=== PATIENT | female | born 1960 | race Caucasian/White ===

== ENCOUNTER → 2020-09-08 11:46 | Outpatient (BNVA) | payer MEDICARE, MEDICAID, SELFPAY | PROVIDERS: PCP Internal Medicine; Visit Provider Hospitalist | DX: Z13.89 Encounter for screening for other disorder (principal) | CPT/HCPCS: Q3014 ==

== ENCOUNTER → 2021-03-12 11:16 | Outpatient (BNVA) | payer MEDICARE, MEDICAID, SELFPAY | PROVIDERS: PCP Internal Medicine; Visit Provider Hospitalist | DX: J44.9 Chronic obstructive pulmonary disease, unspecified (principal); J96.11 Chronic respiratory failure with hypoxia; J96.12 Chronic respiratory failure with hypercapnia | CPT/HCPCS: 99212 ==

== ENCOUNTER → 2021-09-17 14:28 | Outpatient (BNVA) | payer MEDICARE, MEDICAID, SELFPAY | PROVIDERS: PCP Internal Medicine; Visit Provider Hospitalist | DX: J44.9 Chronic obstructive pulmonary disease, unspecified (principal); J96.11 Chronic respiratory failure with hypoxia; J96.12 Chronic respiratory failure with hypercapnia | CPT/HCPCS: 99212 ==

== ENCOUNTER 2022-01-24 15:28 | Inpatient (IN) | payer MEDICARE, MEDICAID, SELFPAY ==
[2022-01-24] VITALS (9 sets, daily range): BP systolic 107–151; BP diastolic 49–80; PULSE 83–104; RESP 15–22; TEMP 36.2–36.7; O2SAT 92–96; BMI 33.4
--- NOTE | ~2022-01-24 | XR_ITS ---
EXAMINATION: XR CHEST CLINICAL INFORMATION: Shortness of breath COMPARISON: None TECHNIQUE: Frontal view of the chest was obtained. FINDINGS: Linear subsegmental atelectasis at the right lung base. No airspace consolidation. No pleural effusion or pneumothorax. Normal cardiomediastinal silhouette. Mild prominence of the pulmonary vascular markings and mild peribronchial cuffing. No overt pulmonary edema. No acute osseous injury. XR/XR chest 1V IMPRESSION: 1. Possible mild pulmonary vascular congestion. No overt pulmonary edema. 2. No airspace consolidation or effusions.
--- NOTE | 2022-01-24 15:40 | ECG_ITS ---
Test Reason : SOB Blood Pressure : / mmHG Vent. Rate : 076 BPM Atrial Rate : 076 BPM P-R Int : 160 ms QRS Dur : 084 ms QT Int : 438 ms P-R-T Axes : 059 043 044 degrees QTc Int : 492 ms Normal sinus rhythm T wave abnormality, consider anterior ischemia Prolonged QT Abnormal ECG No previous ECGs available Referred By: Generic ED Physician Electronically Signed By:ANTWON EAST
--- NOTE | 2022-01-24 16:10 | ED_ITS ---
HPI - Asthma General Chief Complaint: Asthma Stated Complaint: asthma Time Seen by Provider: 01/24/22 15:49 Source: patient Mode of arrival: ambulatory Limitations: no limitations History of Present Illness HPI Narrative: 61-year-old female past medical history significant for asthma, COPD presenting to the emergency department with complaints of shortness of breath, wheezing, malaise, fatigue, cough with productive yellow/green sputum x2 weeks worsening. Patient tells me that initially she thought this was her typical asthma/COPD exacerbation, she was taking nebulizing treatments around the clock every 4 ho urs, using her rescue inhaler, recently completed a course of 40 mg of p.o. prednisone x5 days with little to no relief. 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 she reports increased work of breathing, and she tells me she feels horrible. She reports that she has some chest discomfort however has a hard time describing it. She does report that her grandchild at home is sick with similar symptoms. Patient was never a smoker. MD complaint: asthma attack Onset (ago): week(s) (2) Severity: severe Associated symptoms: none Treatments Prior to Arrival: inhaled bronchodilator and inhaled steroid Related Data Home Medications Medication Instructions Recorded Confirmed methocarbamol 500 mg tablet 500 mg PO TID 09/08/20 09/08/20 albuterol sulfate 90 mcg/actuation 2 puff inhalation Q4H PRN Wheezing 01/24/22 01/24/22 aerosol inhaler (Ventolin HFA) amlodipine 5 mg tablet 5 mg PO DAILY 01/24/22 01/24/22 citalopram 40 mg tablet tab 01/24/22 furosemide 20 mg tablet tab 01/24/22 hydroxyzine pamoate 25 mg capsule cap 01/24/22 levothyroxine 50 mcg tablet tab 01/24/22 omeprazole 40 mg capsule,delayed cap 01/24/22 release potassium chloride 10 mEq tab PO 01/24/22 tablet,extended release ropinirole 3 mg tablet tab 01/24/22 simvastatin 10 mg tablet tab 01/24/22 trazodone 150 mg tablet tab 01/24/22 Previous Rx's Medication Instructions Recorded montelukast 10 mg tablet 10 mg PO BEDTIME 90 days #90 tabs 09/08/20 (Singulair) Symbicort 160 mcg-4.5 2 puff inhalation BID 90 days 09/13/20 mcg/actuation HFA aerosol inhaler (budesonide-formoterol) ipratropium 0.5 mg-albuterol 3 mg 3 ml inhalation QID 30 days #360 mL 09/24/21 (2.5 mg base)/3 mL nebulization soln Allergies Allergy/AdvReac Type Severity Reaction Status Date / Time ampicillin Allergy Severe Rash and Uncoded 01/24/22 15:04 Hives naproxen Allergy Severe Rash and Uncoded 01/24/22 15:04 Hives slow bid Allergy Severe Rash and Uncoded 01/24/22 15:04 Hives tramadol Allergy Severe Rash and Uncoded 01/24/22 15:04 Hives Review of Systems Review of Systems: Constitutional : No Weight loss, No Fever, No Chills, No Fatigue, No Malaise ENT/Mouth : No sore throat, No Rhinorrhea Eyes: No Eye Pain, No Swelling, No Redness Cardiovascular : + Chest Pain, + SOB, + Dyspnea on Exertion, + Orthopnea, No Edema, No Palpitations Respiratory : + Cough, + Sputum, + Wheezing Gastrointestinal : No Nausea, No Vomiting, No Diarrhea, No Constipation, No abdominal Pain, No Hematochezia, No Melena Genitourinary : No Dysuria, No Urinary Frequency, No Hematuria, Musculoskeletal : No joint pain, No Myalgias, No Joint Swelling Skin : No Skin Lesions, No rash Neuro : No Weakness, No Numbness, No Dizziness, No Headache Psych : No Anxiety/Panic, No Depression All other systems reviewed and are negative Yes all other systems are reviewed and are negative FOR[facility]LY [facility], [facility] Past Medical History Attestation statement: The following information was validated with the patient. Source: old records reviewed and nursing notes reviewed Medical History Asthma-COPD overlap syndrome Chronic respiratory failure Social History Social History Patient Tobacco Use Status: Never used Tobacco Advance Directives: No Advance Directives Information Provided: No Physical Exam Vital Signs: Vital Signs: Last Vital Signs Temp 97.2 F 01/24/22 15:36 Pulse 93 01/24/22 17:09 Resp 22 H 01/24/22 17:09 BP 121/80 01/24/22 16:47 Pulse Ox 92 01/24/22 17:09 O2 Del Method 01/24/22 17:09 O2 Flow Rate 2 01/24/22 17:09 Oxygen Flow Rate 3 01/24/22 15:36 BMI result Body Mass Index 33.4 vss 95% on 3L usualy only on 2L at home. Appearance: Alert.? Oriented X3.? No acute distress.? Head: Normocephalic, atraumatic, no step-offs or deformities Eyes: Pupils equal, round and reactive to light.? ENT: Pharynx normal.? Neck: Normal inspection.? Neck supple.? CVS: Normal heart rate and rhythm.? Pulses normal.? Respiratory: No respiratory distress. Patient has crackles to bilateral lower lobes, significant expiratory wheezing throughout. Abdomen: Soft and nontender.? Skin: Skin warm and dry.? Normal skin color.? Normal skin turgor.? Extremities: No lower extremity edema.? No calf ttp, negative farhan b/l. 5/5 strength to bilateral upper and lower extremities Neuro: Oriented X 3.? No motor deficit.? No sensory deficit. CN 2-12 intact Course Reevaluation(s) Reevaluation #1: CBC appears to be within normal limits. Chemistry with no acute electrolyte abnormalities requiring intervention. VBG with metabolic alkalosis. D-dimer is negative. COVID negative. Time: 17:32 Reevaluation #2: At this time patient will be admitted to hospitalist team for acute asthma exacerbation Time: 17:39 MDM - Asthma MDM Narrative Medical decision making narrative: 1613 61-year-old female presenting from pulmonology office with acute asthma exacerbation, not relieved by nebulizing treatments in the office. Patient reports wheezing, shortness of breath, difficulty breathing. Physical examination with X to Nicola wheezing throughout. Negative Farhan Patient without risk factors for PE therefore I have low suspicion for PE. Unlikely CHF, pneumonia. Asthma with superimposed COPD exacerbation. For this reason at this time infection is suspected, antibiotics will be given. I will hold on administering fluids until patient's BNP is back. Plan at this time labs, imaging, VBG, chest x-ray, COVID. I will give patient 10 mg of albuterol, a DuoNeb, magnesium, Solu-Medrol. Medical Records Attestation: I reviewed the patient's medical records. Lab Data Attestation: I reviewed the patient's lab results. Result diagrams: 01/24/22 16:33 01/24/22 16:32 Labs: Lab Results 01/24/22 01/24/22 01/24/22 Range/Units 16:32 16:32 16:32 WBC (4.8-10.8) X10*3/uL RBC (4.20-5.50) X10*6/uL Hgb (12.0-16.0) g/dl Hct (37.0-47.0) % MCV (80.0-98.0) fL MCH (27.0-33.0) pg MCHC (31.0-35.0) g/dl RDW (11.0-16.0) % Plt Count (160-400) X10*3/uL MPV (9.4-12.3) fL Immature Gran % (Auto) (0.0-0.4) % Neut % (Auto) (45-73) % Lymph % (Auto) (20-40) % [place] % (Auto) (2-11) % Eos % (Auto) (0-4) % Baso % (Auto) (0-2) % Lymph # (Auto) (1.2-4.9) X10*3/uL [place] # (Auto) (0.1-1.2) X10*3/uL Eos # (Auto) (0.0-0.4) X10*3/uL Baso # (Auto) (0.0-0.2) X10*3/uL Abs Immat Gran (auto) (0.00-0.03) X10*3/uL Absolute Neuts (auto) (2.0-8.3) x10*3/uL Absolute Nucleated RBC (0.0-0.012) X10*3/uL Nucleated RBC % (auto) (0.0-0.2) /100WBC D-Dimer High Sensitivty 193 NG/ML VBG pH (7.32-7.43) VBG pCO2 mmHg VBG pO2 mmHg VBG HCO3 (22-26) mmol/L VBG O2 Saturation % VBG Base Excess mmol/L Sodium 141 (135-145) mmol/L Potassium 4.2 (3.3-5.1) mmol/L Chloride 97 (96-108) mmol/L Carbon Dioxide 36 H (22-29) mmol/L Anion Gap 12 (12-20) BUN 21 H (9-16) mg/dL Creatinine 1.35 (0.5-1.4) mg/dL Estim Creat Clear Calc 37.9 Estimated GFR 40 Random Glucose 97 (60-115) mg/dL Lactic Acid (0.5-2.0) mmol/L Calcium 9.3 (8.4-10.2) mg/dL Total Bilirubin 0.4 (0.0-1.0) mg/dL AST 13 (5-31) U/L ALT 19 (0-31) U/L Alkaline Phosphatase 71 (39-117) U/L Troponin I High Sens (<3.5-17.0) ng/L B-Natriuretic Peptide (<100) pg/mL Total Protein 7.5 (6.5-8.0) g/dL Albumin 4.5 (3.5-5.0) g/dL COVID-19 (KAREN) Negative (Negative) COVID-19 Clin Com See Note 01/24/22 01/24/22 01/24/22 Range/Units 16:32 16:33 16:33 WBC 9.8 (4.8-10.8) X10*3/uL RBC 3.87 L (4.20-5.50) X10*6/uL Hgb 11.9 L (12.0-16.0) g/dl Hct 36.7 L (37.0-47.0) % MCV 94.8 (80.0-98.0) fL MCH 30.7 (27.0-33.0) pg MCHC 32.4 (31.0-35.0) g/dl RDW 13.0 (11.0-16.0) % Plt Count 254 (160-400) X10*3/uL MPV 10.6 (9.4-12.3) fL Immature Gran % (Auto) 1.3 H (0.0-0.4) % Neut % (Auto) 44.6 L (45-73) % Lymph % (Auto) 47.5 H (20-40) % [place] % (Auto) 5.8 (2-11) % Eos % (Auto) 0.5 (0-4) % Baso % (Auto) 0.3 (0-2) % Lymph # (Auto) 4.6 (1.2-4.9) X10*3/uL [place] # (Auto) 0.6 (0.1-1.2) X10*3/uL Eos # (Auto) 0.1 (0.0-0.4) X10*3/uL Baso # (Auto) 0.0 (0.0-0.2) X10*3/uL Abs Immat Gran (auto) 0.13 H (0.00-0.03) X10*3/uL Absolute Neuts (auto) 4.4 (2.0-8.3) x10*3/uL Absolute Nucleated RBC 0.000 (0.0-0.012) X10*3/uL Nucleated RBC % (auto) 0.0 (0.0-0.2) /100WBC D-Dimer High Sensitivty NG/ML VBG pH (7.32-7.43) VBG pCO2 mmHg VBG pO2 mmHg VBG HCO3 (22-26) mmol/L VBG O2 Saturation % VBG Base Excess mmol/L Sodium (135-145) mmol/L Potassium (3.3-5.1) mmol/L Chloride (96-108) mmol/L Carbon Dioxide (22-29) mmol/L Anion Gap (12-20) BUN (9-16) mg/dL Creatinine (0.5-1.4) mg/dL Estim Creat Clear Calc Estimated GFR Random Glucose (60-115) mg/dL Lactic Acid 1.0 (0.5-2.0) mmol/L Calcium (8.4-10.2) mg/dL Total Bilirubin (0.0-1.0) mg/dL AST (5-31) U/L ALT (0-31) U/L Alkaline Phosphatase (39-117) U/L Troponin I High Sens < 3.5 (<3.5-17.0) ng/L B-Natriuretic Peptide 25 (<100) pg/mL Total Protein (6.5-8.0) g/dL Albumin (3.5-5.0) g/dL COVID-19 (KAREN) (Negative) COVID-19 Clin Com 01/24/22 Range/Units 16:48 WBC (4.8-10.8) X10*3/uL RBC (4.20-5.50) X10*6/uL Hgb (12.0-16.0) g/dl Hct (37.0-47.0) % MCV (80.0-98.0) fL MCH (27.0-33.0) pg MCHC (31.0-35.0) g/dl RDW (11.0-16.0) % Plt Count (160-400) X10*3/uL MPV (9.4-12.3) fL Immature Gran % (Auto) (0.0-0.4) % Neut % (Auto) (45-73) % Lymph % (Auto) (20-40) % [place] % (Auto) (2-11) % Eos % (Auto) (0-4) % Baso % (Auto) (0-2) % Lymph # (Auto) (1.2-4.9) X10*3/uL [place] # (Auto) (0.1-1.2) X10*3/uL Eos # (Auto) (0.0-0.4) X10*3/uL Baso # (Auto) (0.0-0.2) X10*3/uL Abs Immat Gran (auto) (0.00-0.03) X10*3/uL Absolute Neuts (auto) (2.0-8.3) x10*3/uL Absolute Nucleated RBC (0.0-0.012) X10*3/uL Nucleated RBC % (auto) (0.0-0.2) /100WBC D-Dimer High Sensitivty NG/ML VBG pH 7.50 H (7.32-7.43) VBG pCO2 51 mmHg VBG pO2 186 mmHg VBG HCO3 40 H (22-26) mmol/L VBG O2 Saturation 100.0 % VBG Base Excess 14.9 mmol/L Sodium (135-145) mmol/L Potassium (3.3-5.1) mmol/L Chloride (96-108) mmol/L Carbon Dioxide (22-29) mmol/L Anion Gap (12-20) BUN (9-16) mg/dL Creatinine (0.5-1.4) mg/dL Estim Creat Clear Calc Estimated GFR Random Glucose (60-115) mg/dL Lactic Acid (0.5-2.0) mmol/L Calcium (8.4-10.2) mg/dL Total Bilirubin (0.0-1.0) mg/dL AST (5-31) U/L ALT (0-31) U/L Alkaline Phosphatase (39-117) U/L Troponin I High Sens (<3.5-17.0) ng/L B-Natriuretic Peptide (<100) pg/mL Total Protein (6.5-8.0) g/dL Albumin (3.5-5.0) g/dL COVID-19 (KAREN) (Negative) COVID-19 Clin Com ECG Data Attestation: I personally reviewed and interpreted this ECG as follows: ECG interpretation date: 01/24/22 ECG interpretation time: 17:32 Prior ECG tracings: not available for review Interpretation: Ventricular rate of 76, DC normal, QRS normal, QT/QTC normal. EKG without ST elevations or inversions. No acute signs of ischemia. No previous EKGs to compare with. Critical Care Time Critical Care Time Critical Care Time: No Discharge Plan Discharge Clinical Impression: Asthma Patient Disposition: Admitted As Inpatient Prescriptions: No Action budesonide-formoterol [Symbicort] 160-4.5 mcg/actuation HFA aerosol inhaler 2 puff inhalation BID 90 Days 3RF albuterol sulfate [Ventolin HFA] 90 mcg/actuation HFA aerosol inhaler 2 puff inhalation Q4-6H PRN (Reason: shortness of breath or wheezing) 90 Days Qty: 3 3RF prednisone 10 mg tablet 40 mg PO DAILY 7 Days Qty: 28 0RF ipratropium-albuterol 0.5 mg-3 mg(2.5 mg base)/3 mL solution for nebulization 3 ml inhalation QID 30 Days Qty: 360 11RF azithromycin 500 mg tablet 500 mg PO DAILY 5 Days Qty: 5 0RF methocarbamol 500 mg tablet 500 mg PO TID montelukast [Singulair] 10 mg tablet 10 mg PO BEDTIME 90 Days Qty: 90 3RF
[2022-01-24] MEDS: Albuterol Sulfate (0.083%) 2.5 MG/3 ML VIAL.NEB 10 MG INHALE (16:37)
[2022-01-24 16:44] LABS: MANUAL DIFF FLAG NO
[2022-01-24] MEDS: Magnesium Sulfate/H2O 2 GM/50 ML PIGGYBACK IV (16:44)
[2022-01-24] MEDS: methylPREDNISolone Sod Succ 125 MG/2 ML VIAL IVPUSH (16:44)
[2022-01-24 16:52] LABS: VBG Base Excess 14.9 mmol/L; VBG HCO3 40 mmol/L (22-26); VBG pCO2 51 mmHg; VBG pO2 186 mmHg
[2022-01-24 16:53] LABS: Basophils Percent Auto 0.3 % (0-2); Eosinophils Absolute Auto 0.1 X10*3/uL (0.0-0.4); Eosinophils Percent Auto 0.5 % (0-4); Hematocrit 36.7 % (37.0-47.0); Hemoglobin 11.9 g/dl (12.0-16.0); Imm Gran Abs Auto 0.13 X10*3/uL (0.00-0.03); Imm Gran Pct Auto 1.3 % (0.0-0.4); Lymphocytes Absolute Auto 4.6 X10*3/uL (1.2-4.9); Lymphocytes Percent Auto 47.5 % (20-40); Mean Corpuscular HGB Conc 32.4 g/dl (31.0-35.0); Mean Corpuscular Hemoglobin 30.7 pg (27.0-33.0); Mean Corpuscular Volume 94.8 fL (80.0-98.0); Mean Platelet Volume 10.6 fL (9.4-12.3); Monocytes Absolute Auto 0.6 X10*3/uL (0.1-1.2); Monocytes Percent Auto 5.8 % (2-11); Neutrophils Absolute Auto 4.4 x10*3/uL (2.0-8.3); Neutrophils Percent Auto 44.6 % (45-73); Platelet Count 254 X10*3/uL (160-400); Red Blood Count 3.87 X10*6/uL (4.20-5.50); White Blood Count 9.8 X10*3/uL (4.8-10.8)
[2022-01-24 16:55] LABS: Venous Blood Gas Refer to POC result
[2022-01-24 17:00] LABS: D Dimer High Sensitivity 193 NG/ML
[2022-01-24 17:01] LABS: COVID-19 Test Negative (Negative)
[2022-01-24] MEDS: cefTRIAXone sodium 1 GM in 0.9 % Sodium Chloride 50 ML IV (17:09)
[2022-01-24 17:24] LABS: Alanine Aminotransferase 19 U/L (0-31); Albumin Level 4.5 g/dL (3.5-5.0); Alkaline Phosphatase 71 U/L (39-117); Anion Gap 12 (12-20); Aspartate Amino Transferase 13 U/L (5-31); Bilirubin Total 0.4 mg/dL (0.0-1.0); Blood Urea Nitrogen 21 mg/dL (9-16); Calcium 9.3 mg/dL (8.4-10.2); Carbon Dioxide 36 mmol/L (22-29); Chloride 97 mmol/L (96-108); Creatinine Clr Calc Pharmacy 37.9; Estimated Glomerular Filt Rate 40; Glucose Random 97 mg/dL (60-115); Potassium 4.2 mmol/L (3.3-5.1); Sodium 141 mmol/L (135-145); Total Protein 7.5 g/dL (6.5-8.0)
[2022-01-24 17:27] LABS: B Type Natriuretic Peptide 25 pg/mL (<100); Troponin-I High Sensitivity < 3.5 ng/L (<3.5-17.0)
[2022-01-24] MEDS: Albuterol Sulfate (0.083%) 2.5 MG/3 ML VIAL.NEB 7.5 MG INHALE (17:29)
[2022-01-24 17:57] LABS: Appearance Urine CLEAR; Color Urine YELLOW; Glucose Urine UA NEG (NEG); Leukocyte Esterase Urine NEG (NEG); Nitrite Urine NEG (NEG); PH 5.5 (5.0-8.0); Specific Gravity - Urine >= 1.030 (1.005-1.025); Urine Blood NEG (NEG); Urine Ketones 5 MG/DL (NEG); Urine Protein NEG (NEG-TRACE)
--- NOTE | 2022-01-24 18:17 | PHA.MEDREC ---
Pharmacy Consult ? Medication Reconciliation Pharmacy has completed the medication reconciliation. Patient reports that she no longer use Symbicort inhaler. Cintia Umana, NathanD
--- NOTE | 2022-01-24 18:37 | PM.IMHP ---
History of Present Illness Date of Service: 01/24/22 Chief Complaint: shortness of breath 61-year-old female past medical history significant for asthma, COPD presenting to the emergency department with complaints of shortness of breath, wheezing, malaise, fatigue, cough with productive yellow/green sputum x2 weeks worsening.? Patient tells me that initially she thought this was her typical asthma/COPD exacerbation, she was taking nebulizing treatments around the clock every 4 hours, using her rescue inhaler, recently completed a course of 40 mg of p.o. prednisone x5 days with little to no relief.? 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 she reports increased work of breathing, and she tells me she feels horrible.? She reports that she has some chest discomfort however has a hard time describing it.? She does report that her grandchild at home is sick with similar symptoms.? Patient was never a smoker. Patient notes she has been intubated in the past for asthma exacerbation ER course Given 10 mg of DuoNeb/125 Solu-Medrol/ceftriaxone. Will be admitted for further treatment of same Review of Systems Review of Systems: Denies chest pain Admits to worsening shortness of breath Denies nausea vomiting diarrhea Denies fever chills PMFSH Medical History Asthma-COPD overlap syndrome Chronic respiratory failure Social History Patient Tobacco Use Status: Never used Tobacco Advance Directives: No Advance Directives Information Provided: No Meds Allergies Allergy/AdvReac Type Severity Reaction Status Date / Time ampicillin Allergy Severe Rash and Uncoded 01/24/22 15:04 Hives naproxen Allergy Severe Rash and Uncoded 01/24/22 15:04 Hives slow bid Allergy Severe Rash and Uncoded 01/24/22 15:04 Hives tramadol Allergy Severe Rash and Uncoded 01/24/22 15:04 Hives Active Medications: Current Medications Acetaminophen (Acetaminophen 325 Mg Tablet) 650 mg PO Q6H PRN PRN Reason: Pain, Mild (Pain Scale 1-3) Albuterol/Ipratropium (Albuterol/Iprat 2.5/0.5mg 3 Ml Ampul.Neb) 3 ml INHALE Q4H PRN PRN Reason: Wheezing Albuterol/Ipratropium (Albuterol/Iprat 2.5/0.5mg 3 Ml Ampul.Neb) 3 ml INHALE RQ4H WHILE AWAKE FORMERLY [facility], [facility]1983 Amlodipine Besylate (Amlodipine Besylate 5 Mg Tablet) 5 mg PO DAILY DANIELA; Protocol Atorvastatin Calcium (Atorvastatin Calcium 10 Mg Tablet) 10 mg PO DAILY DANIELA Azithromycin (Azithromycin 500 Mg Tablet) 500 mg PO Q24H DANIELA Stop: 01/26/22 19:01 Furosemide (Furosemide 20 Mg Tablet) 20 mg PO DAILY DANIELA; Protocol Hydroxyzine HCl (Hydroxyzine Hcl 25 Mg Tablet) 25 mg PO Q6H PRN PRN Reason: Anxiety Ceftriaxone Sodium 1 gm/ (Sodium Chloride) 50 mls @ 100 mls/hr IV Q24H [facility], [facility]1983 Levothyroxine Sodium (Levothyroxine Sodium 50 Mcg Tablet) 50 mcg PO DAILY@0600 FOR[facility], [facility]1983 Methylprednisolone Sodium Succinate (Methylprednisolone Sod Succ 125 Mg/2 Ml Vial) 60 mg IVPUSH Q6H DANIELA Montelukast Sodium (Montelukast Sodium 10 Mg Tablet) 10 mg PO BEDTIME FOR[facility], [facility]1983 Morphine Sulfate (Morphine Sulfate 2 Mg/Ml Cartridge) 2 mg IVPUSH Q3H PRN; Protocol PRN Reason: Restlessness Non-Formulary Medication (Citalopram) 40 mg PO DAILY [facility], [facility] Non-Formulary Medication (Ropinirole) 3 mg PO BEDTIME [facility], [facility] Omeprazole (Omeprazole 40 Mg Capsule.Dr) 40 mg PO DAILY@0630 FOR[facility], [facility] Ondansetron HCl (Ondansetron Hcl 4 Mg/2 Ml Vial) 4 mg IVPUSH Q8H PRN PRN Reason: Nausea and Vomiting Pharmacy Consult (Consult Rx Perform Med Rec) 1 each MISCELLANE ONCE PRN PRN Reason: Consult order Potassium Chloride (Potassium Chloride Er 10 Meq Capsule.Er) 10 meq PO BID [facility], [facility] Sodium Chloride (0.9 % Sodium Chloride Flush 3 Ml Syringe) 3 ml IVFLUSH QSHIFT [facility], [facility]–1983 Trazodone HCl (Trazodone Hcl 50 Mg Tablet) 150 mg PO BEDTIME FOR[facility], [facility] Home Medications Medication Instructions Recorded Confirmed Last Taken Type albuterol sulfate 90 mcg/actuation 2 puff inhalation Q4H PRN Wheezing 01/24/22 01/24/22 01/24/22 History aerosol inhaler (Ventolin HFA) amlodipine 5 mg tablet 5 mg PO DAILY 01/24/22 01/24/22 01/24/22 History citalopram 40 mg tablet 40 mg PO DAILY 01/24/22 01/24/22 01/24/22 History furosemide 20 mg tablet 20 mg PO DAILY 01/24/22 01/24/22 01/24/22 History hydroxyzine pamoate 25 mg capsule 25 mg PO Q6H PRN Anxiety 01/24/22 01/24/22 Unknown History ipratropium 0.5 mg-albuterol 3 mg 3 ml inhalation QID PRN Wheezing 01/24/22 01/24/22 Unknown History (2.5 mg base)/3 mL nebulization soln levothyroxine 50 mcg tablet 50 mcg PO DAILY@0600 01/24/22 01/24/22 01/24/22 History omeprazole 40 mg capsule,delayed 40 mg PO DAILY@0630 01/24/22 01/24/22 01/24/22 History release potassium chloride 10 mEq 10 meq PO BID 01/24/22 01/24/22 01/24/22 History tablet,extended release ropinirole 3 mg tablet 3 mg PO BEDTIME 01/24/22 01/24/22 01/23/22 History simvastatin 10 mg tablet 10 mg PO DAILY 01/24/22 01/24/22 01/24/22 History trazodone 150 mg tablet 150 mg PO BEDTIME 01/24/22 01/24/22 01/23/22 History Physical Exam Vital Signs and Narrative: Vital Signs: Last Vital Signs Temp 97.2 F 01/24/22 15:36 Pulse 89 01/24/22 17:30 Resp 15 01/24/22 17:30 BP 121/80 01/24/22 16:47 Pulse Ox 92 01/24/22 17:09 O2 Del Method 01/24/22 17:09 O2 Flow Rate 2 01/24/22 17:09 Oxygen Flow Rate 3 01/24/22 15:36 BMI result Body Mass Index 33.4 Const: Other: Awake alert able to speak in short sentences Chest: Other: Accessory muscle use noted Resp: Other: Dense expiratory wheezes all savage; aerating to bases Cardio: Other: No S4; positive S1-S2; no S3 murmurs rubs or gallops GI: Other: Soft nontender nondistended normoactive bowel sounds Neuro: Other: Cranial nerves 2-12 grossly intact as tested. Motor is 5/5 as tested. Sensation is intact. Cognition is appropriate Extrem: Other: No edema bilaterally Results Labs CBC and Chem 7: 01/24/22 16:33 01/24/22 16:32 Labs: Laboratory Results - last 24 hr 01/24/22 01/24/22 01/24/22 16:32 16:32 16:32 MCV MCH MCHC RDW Plt Count MPV Immature Gran % (Auto) Neut % (Auto) Lymph % (Auto) Forrest % (Auto) Eos % (Auto) Baso % (Auto) Lymph # (Auto) Forrest # (Auto) Eos # (Auto) Baso # (Auto) Abs Immat Gran (auto) Absolute Neuts (auto) Absolute Nucleated RBC Nucleated RBC % (auto) D-Dimer High Sensitivty 193 VBG pH VBG pCO2 VBG pO2 VBG HCO3 VBG O2 Saturation VBG Base Excess Anion Gap 12 Estim Creat Clear Calc 37.9 Estimated GFR 40 Random Glucose 97 Lactic Acid Calcium 9.3 Total Bilirubin 0.4 AST 13 ALT 19 Alkaline Phosphatase 71 B-Natriuretic Peptide Total Protein 7.5 Albumin 4.5 Urine Color Urine Appearance Urine pH Ur Specific [place] Urine Protein Urine Glucose (UA) Urine Ketones Urine Blood Urine Nitrite Ur Leukocyte Esterase COVID-19 (KAREN) Negative COVID-19 Clin Com See Note 01/24/22 01/24/22 01/24/22 16:32 16:33 16:33 MCV 94.8 MCH 30.7 MCHC 32.4 RDW 13.0 Plt Count 254 MPV 10.6 Immature Gran % (Auto) 1.3 H Neut % (Auto) 44.6 L Lymph % (Auto) 47.5 H Forrest % (Auto) 5.8 Eos % (Auto) 0.5 Baso % (Auto) 0.3 Lymph # (Auto) 4.6 Forrest # (Auto) 0.6 Eos # (Auto) 0.1 Baso # (Auto) 0.0 Abs Immat Gran (auto) 0.13 H Absolute Neuts (auto) 4.4 Absolute Nucleated RBC 0.000 Nucleated RBC % (auto) 0.0 D-Dimer High Sensitivty VBG pH VBG pCO2 VBG pO2 VBG HCO3 VBG O2 Saturation VBG Base Excess Anion Gap Estim Creat Clear Calc Estimated GFR Random Glucose Lactic Acid 1.0 Calcium Total Bilirubin AST ALT Alkaline Phosphatase B-Natriuretic Peptide 25 Total Protein Albumin Urine Color Urine Appearance Urine pH Ur Specific [place] Urine Protein Urine Glucose (UA) Urine Ketones Urine Blood Urine Nitrite Ur Leukocyte Esterase COVID-19 (KARNE) COVID-19 [facility] Com 01/24/22 01/24/22 16:48 17:33 MCV MCH MCHC RDW Plt Count MPV Immature Gran % (Auto) Neut % (Auto) Lymph % (Auto) Forrest % (Auto) Eos % (Auto) Baso % (Auto) Lymph # (Auto) Forrest # (Auto) Eos # (Auto) Baso # (Auto) Abs Immat Gran (auto) Absolute Neuts (auto) Absolute Nucleated RBC Nucleated RBC % (auto) D-Dimer High Sensitivty VBG pH 7.50 H VBG pCO2 51 VBG pO2 186 VBG HCO3 40 H VBG O2 Saturation 100.0 VBG Base Excess 14.9 Anion Gap Estim Creat Clear Calc Estimated GFR Random Glucose Lactic Acid Calcium Total Bilirubin AST ALT Alkaline Phosphatase B-Natriuretic Peptide Total Protein Albumin Urine Color YELLOW Urine Appearance CLEAR Urine pH 5.5 Ur Specific [place] >= 1.030 H Urine Protein NEG Urine Glucose (UA) NEG Urine Ketones 5 Urine Blood NEG Urine Nitrite NEG Ur Leukocyte Esterase NEG COVID-19 (KAREN) COVID-19 Clin Com Imaging Radiologist's Impressions: Impressions Chest X-Ray 01/24/22 17:22 IMPRESSION: 1. Possible mild pulmonary vascular congestion. No overt pulmonary edema. 2. No airspace consolidation or effusions. Assessment and Plan (1) Acute and chronic respiratory failure: Qualifiers: Respiratory failure complication: hypoxia Qualified Code(s): J96.21 - Acute and chronic respiratory failure with hypoxia Status: Acute (2) Asthma exacerbation: Qualifiers: Asthma severity: moderate Asthma persistence: persistent Qualified Code(s): J45.41 - Moderate persistent asthma with (acute) exacerbation Status: Acute (3) Hypertension: Status: Acute (4) Hypothyroidism: Status: Acute Plan 61-year-old female presents from pulmonology office after failing outpatient therapies for asthma exacerbation. She was unresponsive to DuoNeb therapy in the office 2nd to dizziness and sats were 88% that improved to 95 with supplemental O2. Chest x-ray negative for infiltrate. History of past intubation for exacerbations 1. Moderate persistent asthma with exacerbation -making sputum; ceftriaxone/azithromycin (1) -pulse dose Solu-Medrol -schedule DuoNebs q.4 hours while awake -pulse dose morphine to improve respiratory effort 2. Hypertension -acceptable control on current therapies -adjust as indicated 3. Hypothyroidism -continue outpatient supplementation Full code Lovenox Patient will require 2 midnights going forward to treat asthma exacerbation with IV steroids and IV antibiotics. This cannot be achieved in the lesser acute setting Quality Stroke Does the patient have a stroke diagnosis?: No VTE Prior VTE?: No VTE Risk Level:: Medical - moderate - high VTE Device Contraindication: Treatment Not Indicated VTE Drug Contraindication: N/A - Med Ordered
[2022-01-24] MEDS: Morphine Sulfate 2 MG/ML CARTRIDGE IVPUSH ×2 (18:46→21:52)
[2022-01-24] MEDS: Azithromycin 500 MG TABLET PO (18:47)
[2022-01-24] MEDS: Albuterol/Iprat 2.5/0.5MG 3 ML AMPUL.NEB INHALE (19:51)
--- NOTE | 2022-01-24 20:02 | PC.NURSE ---
report received from Eran PEREZ. pt receiving duoneb treatment by respiratory. NAD. family at bedside, vital signs updated. call javier within reach. will continue to monitor closely
[2022-01-24] MEDS: Montelukast Sodium 10 MG TABLET PO (21:51)
[2022-01-24] MEDS: hydrOXYzine HCL 25 MG TABLET PO (21:51)
[2022-01-24] MEDS: traZODone HCL 50 MG TABLET 150 MG PO (21:51)
[2022-01-24] MEDS: ondansetron HCL 4 MG/2 ML VIAL IVPUSH (21:52)
[2022-01-24] MEDS: 0.9 % Sodium Chloride Flush 3 ML SYRINGE IVFLUSH (21:56)
[2022-01-25] VITALS (9 sets, daily range): BP systolic 101–164; BP diastolic 53–72; PULSE 71–94; RESP 16–22; TEMP 36–36.2; O2SAT 92–99
[2022-01-25] MEDS: Morphine Sulfate 2 MG/ML CARTRIDGE IVPUSH ×6 (02:27→23:15)
[2022-01-25] MEDS: methylPREDNISolone Sod Succ 125 MG/2 ML VIAL 60 MG IVPUSH ×4 (05:53→22:57)
[2022-01-25] MEDS: Omeprazole 40 MG CAPSULE.DR PO (05:53)
[2022-01-25] MEDS: Levothyroxine Sodium 50 MCG TABLET PO (05:53)
[2022-01-25 06:42] LABS: MANUAL DIFF FLAG NO
[2022-01-25 06:49] LABS: Basophils Percent Auto 0.1 % (0-2); Hematocrit 33.7 % (37.0-47.0); Imm Gran Abs Auto 0.21 X10*3/uL (0.00-0.03); Imm Gran Pct Auto 1.4 % (0.0-0.4); Lymphocytes Absolute Auto 1.2 X10*3/uL (1.2-4.9); Lymphocytes Percent Auto 7.7 % (20-40); Mean Corpuscular HGB Conc 32.6 g/dl (31.0-35.0); Mean Corpuscular Hemoglobin 30.5 pg (27.0-33.0); Mean Corpuscular Volume 93.4 fL (80.0-98.0); Mean Platelet Volume 10.8 fL (9.4-12.3); Monocytes Absolute Auto 0.3 X10*3/uL (0.1-1.2); Monocytes Percent Auto 2.2 % (2-11); Neutrophils Absolute Auto 13.2 x10*3/uL (2.0-8.3); Neutrophils Percent Auto 88.6 % (45-73); Platelet Count 230 X10*3/uL (160-400); Red Blood Count 3.61 X10*6/uL (4.20-5.50); Red Cell Distribution Width 12.8 % (11.0-16.0); White Blood Count 14.9 X10*3/uL (4.8-10.8)
[2022-01-25 07:29] LABS: Alanine Aminotransferase 17 U/L (0-31); Albumin Level 4.2 g/dL (3.5-5.0); Alkaline Phosphatase 70 U/L (39-117); Anion Gap 18 (12-20); Aspartate Amino Transferase 9 U/L (5-31); Bilirubin Total < 0.2 mg/dL (0.0-1.0); Blood Urea Nitrogen 22 mg/dL (9-16); Calcium 9.1 mg/dL (8.4-10.2); Carbon Dioxide 30 mmol/L (22-29); Chloride 98 mmol/L (96-108); Creatinine Clr Calc Pharmacy 39.4; Estimated Glomerular Filt Rate 42; Glucose Fasting 229 mg/dL (60-99); Potassium 4.7 mmol/L (3.3-5.1); Sodium 141 mmol/L (135-145); Total Protein 6.9 g/dL (6.5-8.0)
--- NOTE | 2022-01-25 07:32 | PC.NURSE ---
Pt A&Ox4, lungs with minimal coarse rhonchi in the bases at this time. Denies pain, RR slightly increased at 22/min. NSR on monitor, abd soft, non tender, +BS x 4. Call javier within reach. Will continue to monitor.
[2022-01-25] MEDS: Albuterol/Iprat 2.5/0.5MG 3 ML AMPUL.NEB INHALE ×4 (07:53→20:23)
[2022-01-25] MEDS: Atorvastatin Calcium 10 MG TABLET PO (09:47)
[2022-01-25] MEDS: amLODIPine Besylate 5 MG TABLET PO (09:47)
[2022-01-25] MEDS: Furosemide 20 MG TABLET PO (09:47)
[2022-01-25] MEDS: Escitalopram Oxalate 20 MG TABLET PO (09:47)
--- NOTE | 2022-01-25 12:07 | HO.PM.IMPN ---
Subjective Subjective Date of Service: 01/25/22 Interval History: Much more comfortable than admission. Breathing much easier Review of Systems Denies chest pain Admits to improving shortness of breath Denies nausea vomiting diarrhea Denies fever chills Physical Exam Vital Signs: Vital Signs: Last Vital Signs Temp 96.8 F 01/25/22 10:35 Pulse 94 01/25/22 11:45 Resp 18 01/25/22 11:45 BP 136/66 01/25/22 10:35 Pulse Ox 98 01/25/22 10:35 O2 Del Method 01/25/22 10:35 O2 Flow Rate 3 01/25/22 10:35 Oxygen Flow Rate 3 01/24/22 15:36 BMI result Body Mass Index 33.4 Const: Other: Awake alert able to speak in short sentences Chest: Other: Accessory muscle use noted Resp: Other: Good air movement all savage with diffuse expiratory wheezes (improved) Cardio: Other: No S4; positive S1-S2; no S3 murmurs rubs or gallops GI: Other: Soft nontender nondistended normoactive bowel sounds Neuro: Other: Cranial nerves 2-12 grossly intact as tested. Motor is 5/5 as tested. Sensation is intact. Cognition is appropriate Extrem: Other: No edema bilaterally Objective Data Active Medications Acetaminophen (Acetaminophen 325 Mg Tablet) 650 mg PO Q6H PRN PRN Reason: Pain, Mild (Pain Scale 1-3) Albuterol/Ipratropium (Albuterol/Iprat 2.5/0.5mg 3 Ml Ampul.Neb) 3 ml INHALE Q4H PRN PRN Reason: Wheezing Albuterol/Ipratropium (Albuterol/Iprat 2.5/0.5mg 3 Ml Ampul.Neb) 3 ml INHALE RQ4H WHILE AWAKE [facility] Last Admin: 01/25/22 11:45 Dose: 3 ml Documented By: MARLENI Amlodipine Besylate (Amlodipine Besylate 5 Mg Tablet) 5 mg PO DAILY [facility]; Protocol Last Admin: 01/25/22 09:47 Dose: 5 mg Documented By: MEAGHAN Atorvastatin Calcium (Atorvastatin Calcium 10 Mg Tablet) 10 mg PO DAILY [facility] Last Admin: 01/25/22 09:47 Dose: 10 mg Documented By: MEAGHAN Azithromycin (Azithromycin 500 Mg Tablet) 500 mg PO Q24H [facility] Stop: 01/26/22 19:01 Last Admin: 01/24/22 18:47 Dose: 500 mg Documented By: LARA Escitalopram Oxalate (Escitalopram Oxalate 20 Mg Tablet) 20 mg PO DAILY [facility] Last Admin: 01/25/22 09:47 Dose: 20 mg Documented By: MEAGHAN Furosemide (Furosemide 20 Mg Tablet) 20 mg PO DAILY [facility]; Protocol Last Admin: 01/25/22 09:47 Dose: 20 mg Documented By: MEAGHAN Hydroxyzine HCl (Hydroxyzine Hcl 25 Mg Tablet) 25 mg PO Q6H PRN PRN Reason: Anxiety Last Admin: 01/24/22 21:51 Dose: 25 mg Documented By: SONAM Ceftriaxone Sodium 1 gm/ (Sodium Chloride) 50 mls @ 100 mls/hr IV Q24H [facility] Levothyroxine Sodium (Levothyroxine Sodium 50 Mcg Tablet) 50 mcg PO DAILY@0600 [facility] Last Admin: 01/25/22 05:53 Dose: 50 mcg Documented By: SONAM Methylprednisolone Sodium Succinate (Methylprednisolone Sod Succ 125 Mg/2 Ml Vial) 60 mg IVPUSH Q6H [facility] Last Admin: 01/25/22 10:57 Dose: 60 mg Documented By: ARJUN Montelukast Sodium (Montelukast Sodium 10 Mg Tablet) 10 mg PO BEDTIME [facility] Last Admin: 01/24/22 21:51 Dose: 10 mg Documented By: SONAM Morphine Sulfate (Morphine Sulfate 2 Mg/Ml Cartridge) 2 mg IVPUSH Q3H PRN; Protocol PRN Reason: Restlessness Last Admin: 01/25/22 10:57 Dose: 2 mg Documented By: ARJUN Omeprazole (Omeprazole 40 Mg Capsule.) 40 mg PO DAILY@0630 [facility] Last Admin: 01/25/22 05:53 Dose: 40 mg Documented By: SONAM Ondansetron HCl (Ondansetron Hcl 4 Mg/2 Ml Vial) 4 mg IVPUSH Q8H PRN PRN Reason: Nausea and Vomiting Last Admin: 01/24/22 21:52 Dose: 4 mg Documented By: SONAM Pharmacy Consult (Consult Rx Perform Med Rec) 1 each MISCELLANE ONCE PRN PRN Reason: Consult order Potassium Chloride (Potassium Chloride Er 10 Meq Capsule.Er) 10 meq PO BID [facility] Last Admin: 01/25/22 09:47 Dose: 10 meq Documented By: MEAGHAN Ropinirole HCl (Ropinirole Hcl 1 Mg Tablet) 3 mg PO BEDTIME [facility] Last Admin: 01/24/22 21:54 Dose: Not Given Documented By: SONAM Non-Admin Reason: Med Not Available Sodium Chloride (0.9 % Sodium Chloride Flush 3 Ml Syringe) 3 ml IVFLUSH QSHIFT [facility] Last Admin: 01/25/22 09:04 Dose: Not Given Documented By: MEAGHAN Non-Admin Reason: IV Running Trazodone HCl (Trazodone Hcl 50 Mg Tablet) 150 mg PO BEDTIME [facility] Last Admin: 01/24/22 21:51 Dose: 150 mg Documented By: SONAM Labs CBC & Chem 7: 01/25/22 05:47 01/25/22 05:47 Labs: Laboratory Results - last 24 hr 01/24/22 01/24/22 01/24/22 16:32 16:32 16:32 MCV MCH MCHC RDW Plt Count MPV Immature Gran % (Auto) Neut % (Auto) Lymph % (Auto) [place] % (Auto) Eos % (Auto) Baso % (Auto) Lymph # (Auto) [place] # (Auto) Eos # (Auto) Baso # (Auto) Abs Immat Gran (auto) Absolute Neuts (auto) Absolute Nucleated RBC Nucleated RBC % (auto) D-Dimer High Sensitivty 193 VBG pH VBG pCO2 VBG pO2 VBG HCO3 VBG O2 Saturation VBG Base Excess Anion Gap 12 Estim Creat Clear Calc 37.9 Estimated GFR 40 Random Glucose 97 Fasting Glucose Lactic Acid Calcium 9.3 Total Bilirubin 0.4 AST 13 ALT 19 Alkaline Phosphatase 71 B-Natriuretic Peptide Total Protein 7.5 Albumin 4.5 Urine Color Urine Appearance Urine pH Ur Specific [place] Urine Protein Urine Glucose (UA) Urine Ketones Urine Blood Urine Nitrite Ur Leukocyte Esterase COVID-19 (KAREN) Negative COVID-19 Clin Com See Note 01/24/22 01/24/22 01/24/22 16:32 16:33 16:33 MCV 94.8 MCH 30.7 MCHC 32.4 RDW 13.0 Plt Count 254 MPV 10.6 Immature Gran % (Auto) 1.3 H Neut % (Auto) 44.6 L Lymph % (Auto) 47.5 H [place] % (Auto) 5.8 Eos % (Auto) 0.5 Baso % (Auto) 0.3 Lymph # (Auto) 4.6 [place] # (Auto) 0.6 Eos # (Auto) 0.1 Baso # (Auto) 0.0 Abs Immat Gran (auto) 0.13 H Absolute Neuts (auto) 4.4 Absolute Nucleated RBC 0.000 Nucleated RBC % (auto) 0.0 D-Dimer High Sensitivty VBG pH VBG pCO2 VBG pO2 VBG HCO3 VBG O2 Saturation VBG Base Excess Anion Gap Estim Creat Clear Calc Estimated GFR Random Glucose Fasting Glucose Lactic Acid 1.0 Calcium Total Bilirubin AST ALT Alkaline Phosphatase B-Natriuretic Peptide 25 Total Protein Albumin Urine Color Urine Appearance Urine pH Ur Specific [place] Urine Protein Urine Glucose (UA) Urine Ketones Urine Blood Urine Nitrite Ur Leukocyte Esterase COVID-19 (KAREN) COVID-19 Clin Com 01/24/22 01/24/22 01/25/22 16:48 17:33 05:47 MCV 93.4 MCH 30.5 MCHC 32.6 RDW 12.8 Plt Count 230 MPV 10.8 Immature Gran % (Auto) 1.4 H Neut % (Auto) 88.6 H Lymph % (Auto) 7.7 L [place] % (Auto) 2.2 Eos % (Auto) 0.0 Baso % (Auto) 0.1 Lymph # (Auto) 1.2 [place] # (Auto) 0.3 Eos # (Auto) 0.0 Baso # (Auto) 0.0 Abs Immat Gran (auto) 0.21 H Absolute Neuts (auto) 13.2 H Absolute Nucleated RBC 0.000 Nucleated RBC % (auto) 0.0 D-Dimer High Sensitivty VBG pH 7.50 H VBG pCO2 51 VBG pO2 186 VBG HCO3 40 H VBG O2 Saturation 100.0 VBG Base Excess 14.9 Anion Gap Estim Creat Clear Calc Estimated GFR Random Glucose Fasting Glucose Lactic Acid Calcium Total Bilirubin AST ALT Alkaline Phosphatase B-Natriuretic Peptide Total Protein Albumin Urine Color YELLOW Urine Appearance CLEAR Urine pH 5.5 Ur Specific [place] >= 1.030 H Urine Protein NEG Urine Glucose (UA) NEG Urine Ketones 5 Urine Blood NEG Urine Nitrite NEG Ur Leukocyte Esterase NEG COVID-19 (KAREN) COVID-19 Clin Com 01/25/22 05:47 MCV MCH MCHC RDW Plt Count MPV Immature Gran % (Auto) Neut % (Auto) Lymph % (Auto) [place] % (Auto) Eos % (Auto) Baso % (Auto) Lymph # (Auto) [place] # (Auto) Eos # (Auto) Baso # (Auto) Abs Immat Gran (auto) Absolute Neuts (auto) Absolute Nucleated RBC Nucleated RBC % (auto) D-Dimer High Sensitivty VBG pH VBG pCO2 VBG pO2 VBG HCO3 VBG O2 Saturation VBG Base Excess Anion Gap 18 Estim Creat Clear Calc 39.4 Estimated GFR 42 Random Glucose Fasting Glucose 229 H Lactic Acid Calcium 9.1 Total Bilirubin < 0.2 AST 9 ALT 17 Alkaline Phosphatase 70 B-Natriuretic Peptide Total Protein 6.9 Albumin 4.2 Urine Color Urine Appearance Urine pH Ur Specific [place] Urine Protein Urine Glucose (UA) Urine Ketones Urine Blood Urine Nitrite Ur Leukocyte Esterase COVID-19 (KAREN) COVID-19 Clin Com Assessment and Plan (1) Asthma exacerbation: Status: Acute (2) Hypertension: Status: Acute (3) Hypothyroidism: Status: Acute Plan 61-year-old female presents from pulmonology office after failing outpatient therapies for asthma exacerbation. She was unresponsive to DuoNeb therapy in the office 2nd to dizziness and sats were 88% that improved to 95 with supplemental O2. Chest x-ray negative for infiltrate. History of past intubation for exacerbations 1. Moderate persistent asthma with exacerbation (markedly improved since admission) - ceftriaxone/azithromycin (2) -pulse dose Solu-Medrol -schedule DuoNebs q.4 hours while awake -pulse dose morphine to improve respiratory effort 2. Hypertension -acceptable control on current therapies -adjust as indicated 3. Hypothyroidism -continue outpatient supplementation Full code Lovenox Patient will require ongoing hospitalization for IV steroids and antibiotics to treat acute asthma exacerbation Quality Stroke Does the patient have a stroke diagnosis?: No VTE Prior VTE?: No VTE Risk Level:: Medical - moderate - high VTE Device Contraindication: Treatment Not Indicated VTE Drug Contraindication: N/A - Med Ordered
[2022-01-25] MEDS: 0.9 % Sodium Chloride Flush 3 ML SYRINGE IVFLUSH (14:59)
[2022-01-25] MEDS: cefTRIAXone sodium 1 GM in 0.9 % Sodium Chloride 50 ML IV (18:12)
[2022-01-25] MEDS: Azithromycin 500 MG TABLET PO (18:23)
[2022-01-25] MEDS: rOPINIRole HCL 1 MG TABLET 3 MG PO (19:39)
[2022-01-25] MEDS: Montelukast Sodium 10 MG TABLET PO (19:39)
[2022-01-25] MEDS: traZODone HCL 50 MG TABLET 150 MG PO (19:40)
[2022-01-25] MEDS: hydrOXYzine HCL 25 MG TABLET PO (22:57)
[2022-01-26] MEDS: Omeprazole 40 MG CAPSULE.DR PO (05:18)
[2022-01-26] MEDS: Levothyroxine Sodium 50 MCG TABLET PO (05:18)
[2022-01-26] MEDS: methylPREDNISolone Sod Succ 125 MG/2 ML VIAL 60 MG IVPUSH ×2 (05:18→12:17)
[2022-01-26] MEDS: Morphine Sulfate 2 MG/ML CARTRIDGE IVPUSH ×2 (05:26→09:14)
[2022-01-26 05:31] LABS: Basophils Absolute Auto 0.1 X10*3/uL (0.0-0.2); Basophils Percent Auto 0.2 % (0-2); Hematocrit 33.7 % (37.0-47.0); Hemoglobin 10.8 g/dl (12.0-16.0); Imm Gran Abs Auto 0.42 X10*3/uL (0.00-0.03); Imm Gran Pct Auto 1.8 % (0.0-0.4); Lymphocytes Absolute Auto 1.4 X10*3/uL (1.2-4.9); Lymphocytes Percent Auto 5.9 % (20-40); MANUAL DIFF FLAG SCAN; Mean Corpuscular Hemoglobin 30.7 pg (27.0-33.0); Mean Corpuscular Volume 95.7 fL (80.0-98.0); Mean Platelet Volume 10.9 fL (9.4-12.3); Monocytes Absolute Auto 0.7 X10*3/uL (0.1-1.2); Monocytes Percent Auto 2.9 % (2-11); Neutrophils Absolute Auto 20.7 x10*3/uL (2.0-8.3); Neutrophils Percent Auto 89.2 % (45-73); Platelet Count 242 X10*3/uL (160-400); Red Blood Count 3.52 X10*6/uL (4.20-5.50); Red Cell Distribution Width 13.2 % (11.0-16.0); SCAN SMEAR FLAG 1; White Blood Count 23.2 X10*3/uL (4.8-10.8)
[2022-01-26 05:49] LABS: SLIDE REVIEW VERIFIED
[2022-01-26 05:51] LABS: Alanine Aminotransferase 14 U/L (0-31); Alkaline Phosphatase 70 U/L (39-117); Anion Gap 15 (12-20); Aspartate Amino Transferase 11 U/L (5-31); Bilirubin Total 0.2 mg/dL (0.0-1.0); Blood Urea Nitrogen 26 mg/dL (9-16); Calcium 9.1 mg/dL (8.4-10.2); Carbon Dioxide 30 mmol/L (22-29); Chloride 101 mmol/L (96-108); Creatinine Clr Calc Pharmacy 45.7; Estimated Glomerular Filt Rate 50; Glucose Fasting 166 mg/dL (60-99); Potassium 4.7 mmol/L (3.3-5.1); Sodium 141 mmol/L (135-145); Total Protein 6.7 g/dL (6.5-8.0)
[2022-01-26] MEDS: Albuterol/Iprat 2.5/0.5MG 3 ML AMPUL.NEB INHALE ×2 (07:41→11:46)
[2022-01-26 07:42] VITALS: PULSE 81; RESP 16; O2SAT 95
[2022-01-26 08:07] VITALS: BP 129/68; PULSE 80; RESP 16; TEMP 36.1; O2SAT 97
--- NOTE | 2022-01-26 08:27 | MHC.CM.PN ---
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
[2022-01-26] MEDS: 0.9 % Sodium Chloride Flush 3 ML SYRINGE IVFLUSH (09:01)
[2022-01-26] MEDS: amLODIPine Besylate 5 MG TABLET PO (09:01)
[2022-01-26] MEDS: Furosemide 20 MG TABLET PO (09:01)
[2022-01-26] MEDS: Escitalopram Oxalate 20 MG TABLET PO (09:01)
[2022-01-26] MEDS: Atorvastatin Calcium 10 MG TABLET PO (09:01)
--- NOTE | 2022-01-26 09:31 | P.DS_ITS ---
DS: Providers Provider Date of Service: 01/26/22 Date of admission: 01/24/22 18:04 Primary care physician: Zeke Phelps MD DS: Diagnosis Discharge Diagnosis (1) Asthma exacerbation: Status: Acute (2) Hypertension: Status: Acute (3) Hypothyroidism: Status: Acute DS: Summary Hospital Course Hospital Course: Chief Complaint: shortness of breath 61-year-old female past medical history significant for asthma, COPD presenting to the emergency department with complaints of shortness of breath, wheezing, malaise, fatigue, cough with productive yellow/green sputum x2 weeks worsening.? Patient tells me that initially she thought this was her typical asthma/COPD exacerbation, she was taking nebulizing treatments around the clock every 4 hours, using her rescue inhaler, recently completed a course of 40 mg of p.o. prednisone x5 days with little to no relief.? 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 she reports increased work of breathing, and she tells me she feels horrible.? She reports that she has some chest discomfort however has a hard time describing it.? She does report that her grandchild at home is sick with similar symptoms.? Patient was never a smoker. Patient notes she has been intubated in the past for asthma exacerbation ER course Given 10 mg of DuoNeb/125 Solu-Medrol/ceftriaxone.? Will be admitted for further treatment of same Hospital course: Patient was admitted for exacerbation of asthma and treated with IV steroid, bronchodilators by Nebs and improved over the course of hospitalization, she's breathing comfortably, oxygen satuation is 97 of 2 liters, she's on home O2. Of note WBC is 23K up from 9 on 01/24 and 14 on 01/25 Time Spent with Patient Time attestation: Total time spent providing and/or coordinating discharge services: Discharge coordination time: Greater than 30 minutes Quality: Safe Use of Opioids Does Pt have an Active Cancer Diagnosis on the Problem List?: No Quality: Stroke Does the patient have a stroke diagnosis?: No Physical Exam Vital Signs: Vital Signs: Last Vital Signs Temp 97.0 F 01/26/22 08:07 Pulse 80 01/26/22 08:07 Resp 16 01/26/22 08:07 BP 129/68 01/26/22 08:07 Pulse Ox 97 01/26/22 08:07 O2 Del Method 01/26/22 08:07 O2 Flow Rate 2.0 01/26/22 08:07 Oxygen Flow Rate 3 01/24/22 15:36 BMI result Body Mass Index 33.4 DS: Data Data Completed and Pending Labs on day of discharge: Laboratory Results - last 24 hr 01/26/22 01/26/22 05:10 05:10 WBC 23.2 H RBC 3.52 L Hgb 10.8 L Hct 33.7 L MCV 95.7 MCH 30.7 MCHC 32.0 RDW 13.2 Plt Count 242 MPV 10.9 Immature Gran % (Auto) 1.8 H Neut % (Auto) 89.2 H Lymph % (Auto) 5.9 L [place] % (Auto) 2.9 Eos % (Auto) 0.0 Baso % (Auto) 0.2 Lymph # (Auto) 1.4 [place] # (Auto) 0.7 Eos # (Auto) 0.0 Baso # (Auto) 0.1 Abs Immat Gran (auto) 0.42 H Absolute Neuts (auto) 20.7 H Absolute Nucleated RBC 0.000 Nucleated RBC % (auto) 0.0 Smear Tech's Comments VERIFIED Sodium 141 Potassium 4.7 Chloride 101 Carbon Dioxide 30 H Anion Gap 15 BUN 26 H Creatinine 1.12 Estim Creat Clear Calc 45.7 Estimated GFR 50 Fasting Glucose 166 H Calcium 9.1 Total Bilirubin 0.2 AST 11 ALT 14 Alkaline Phosphatase 70 Total Protein 6.7 Albumin 4.0 Preliminary micro results at discharge 01/24/22 16:47 Blood Culture - Preliminary Blood - Venous No growth after 24 hours. 01/24/22 16:32 Blood Culture - Preliminary Blood - Venous No growth after 24 hours. Discharge Plan Discharge Anticipated Discharge Date/Time: 01/26/22 09:31 Patient Disposition: Home, Self-Care Discharge Diagnosis: Asthma exacerbation Referrals: Zeke Phelps MD [Primary Care Provider] - 1 Week Discharge Medications: Continued citalopram 40 mg tablet 40 mg PO DAILY ropinirole 3 mg tablet 3 mg PO BEDTIME simvastatin 10 mg tablet 10 mg PO DAILY potassium chloride 10 mEq tablet extended release 10 meq PO BID amlodipine 5 mg tablet 5 mg PO DAILY omeprazole 40 mg capsule,delayed release(DR/EC) 40 mg PO DAILY@0630 levothyroxine 50 mcg tablet 50 mcg PO DAILY@0600 trazodone 150 mg tablet 150 mg PO BEDTIME furosemide 20 mg tablet 20 mg PO DAILY albuterol sulfate [Ventolin HFA] 90 mcg/actuation HFA aerosol inhaler 2 puff INHALATION Q4H PRN (Reason: Wheezing) hydroxyzine pamoate 25 mg capsule 25 mg PO Q6H PRN (Reason: Anxiety) ipratropium-albuterol 0.5 mg-3 mg(2.5 mg base)/3 mL solution for nebulization 3 ml inhalation QID PRN (Reason: Wheezing) montelukast [Singulair] 10 mg tablet 10 mg PO BEDTIME 90 Days Qty: 90 3RF Discharge Orders: Discharge Order (Routine); Ordered 01/26/22 Ordered By: Chencho Catherine Diet: Advance to usual diet Activity on Discharge: As tolerated Stand Alone Forms: Patient Portal Discharge page Care Plan Goals: Full recovery from asthma Health Concerns: Asthma Plan of Treatment: Use inhalers as tolerated and follow up with your Doctor in a week, don't smoke, use oxygen as directed Assessment: As above
[2022-01-26 11:46] VITALS: PULSE 84; RESP 16; O2SAT 95
== END 2022-01-26 13:38 | disposition home or self-care (01) | DRG 202 ==
LOC: HO.ED 17:41 → HO.EDOVER 18:09 → HO.S3 01-25 07:22
PROVIDERS: Physician Assistant; Student in an Organized Health Care Education/Training Program; Admitting Provider Hospitalist; Emergency Provider Internal Medicine; PCP Internal Medicine; Visit Provider Internal Medicine
DX: J45.41 Moderate persistent asthma with (acute) exacerbation (principal); J96.21 Acute and chronic respiratory failure with hypoxia; J44.9 Chronic obstructive pulmonary disease, unspecified; E03.9 Hypothyroidism, unspecified; I10 Essential (primary) hypertension; Z20.822 Contact with and (suspected) exposure to COVID-19; Z88.1 Allergy status to other antibiotic agents; Z88.5 Allergy status to narcotic agent; Z79.890 Hormone replacement therapy; Z79.899 Other long term (current) drug therapy
CPT/HCPCS: 36415; 71045; 80053; 81003; 82803; 83605; 83880; 84484; 85025; 85379; 87040; 87635; 93005; 94640; 94644; 94645; 96365; 96366; 96375; 99212; 99285; J0696; J2270; J2405; J2930; J3475

== ENCOUNTER → 2022-02-19 13:40 | Outpatient (BNVA) | payer MEDICARE, MEDICAID, SELFPAY | PROVIDERS: PCP Internal Medicine; Visit Provider Hospitalist | DX: J44.9 Chronic obstructive pulmonary disease, unspecified (principal); J45.41 Moderate persistent asthma with (acute) exacerbation; J96.21 Acute and chronic respiratory failure with hypoxia; Z99.81 Dependence on supplemental oxygen | CPT/HCPCS: Q3014 ==

== ENCOUNTER → 2022-04-25 13:08 | Outpatient (BNVA) | payer MEDICARE, MEDICAID, SELFPAY | PROVIDERS: PCP Internal Medicine; Visit Provider Hospitalist | DX: J44.9 Chronic obstructive pulmonary disease, unspecified (principal); J96.10 Chronic respiratory failure, unspecified whether with hypoxia or hypercapnia | CPT/HCPCS: 99212 ==

== ENCOUNTER → 2022-07-30 09:53 | Outpatient (BNVA) | payer MEDICARE, MEDICAID, SELFPAY | PROVIDERS: PCP Internal Medicine; Visit Provider Hospitalist | DX: J45.41 Moderate persistent asthma with (acute) exacerbation (principal); J96.11 Chronic respiratory failure with hypoxia; J96.12 Chronic respiratory failure with hypercapnia; J44.9 Chronic obstructive pulmonary disease, unspecified; U09.9 Post COVID-19 condition, unspecified | CPT/HCPCS: 94640; 96372; 99212; J2930 ==

== ENCOUNTER 2022-08-15 13:01 | Outpatient (REF) | payer MEDICARE, MEDICAID, SELFPAY ==
--- NOTE | ~2022-08-15 | XR_ITS ---
EXAMINATION: XR CHEST CLINICAL INFORMATION: Reason for Exam J18.0 - Bronchopneumonia, unspecified organism COMPARISON: Chest radiograph 01/16/2022 TECHNIQUE: 2 views of the chest FINDINGS: Indistinctness of the central pulmonary vasculature may reflect pulmonary venous congestion. Streaky left midlung atelectasis. No pneumothorax or pleural effusion. Normal cardiomediastinal silhouette. XR/XR chest 2V IMPRESSION: Indistinctness of the central pulmonary vasculature may reflect pulmonary venous congestion. Streaky left midlung atelectasis.
[2022-08-15 13:48] LABS: MANUAL DIFF FLAG NO
[2022-08-15 13:52] LABS: Venous Blood Gas Refer to POC result
[2022-08-15 13:54] LABS: VBG Base Excess 20.5 mmol/L; VBG HCO3 47 mmol/L (22-26); VBG pCO2 61 mmHg; VBG pH 7.49 (7.32-7.43); VBG pO2 64 mmHg
[2022-08-15 14:01] LABS: Basophils Percent Auto 0.2 % (0-2); Eosinophils Percent Auto 0.1 % (0-4); Hematocrit 37.4 % (37.0-47.0); Hemoglobin 11.7 g/dl (12.0-16.0); Imm Gran Abs Auto 0.12 X10*3/uL (0.00-0.03); Imm Gran Pct Auto 1.3 % (0.0-0.4); Lymphocytes Absolute Auto 0.8 X10*3/uL (1.2-4.9); Lymphocytes Percent Auto 8.1 % (20-40); Mean Corpuscular HGB Conc 31.3 g/dl (31.0-35.0); Mean Corpuscular Hemoglobin 31.3 pg (27.0-33.0); Mean Platelet Volume 9.9 fL (9.4-12.3); Monocytes Absolute Auto 0.3 X10*3/uL (0.1-1.2); Monocytes Percent Auto 3.6 % (2-11); NRBC Pct Auto 0.3 /100WBC (0.0-0.2); Neutrophils Absolute Auto 8.2 x10*3/uL (2.0-8.3); Neutrophils Percent Auto 86.7 % (45-73); Platelet Count 207 X10*3/uL (160-400); Red Blood Count 3.74 X10*6/uL (4.20-5.50); White Blood Count 9.4 X10*3/uL (4.8-10.8)
[2022-08-15 14:12] LABS: D Dimer High Sensitivity < 150 NG/ML
[2022-08-15 14:13] LABS: Alanine Aminotransferase 23 U/L (0-31); Albumin Level 3.9 g/dL (3.5-5.0); Alkaline Phosphatase 93 U/L (39-117); Anion Gap 17 (12-20); Aspartate Amino Transferase 15 U/L (5-31); Bilirubin Direct 0.2 mg/dL (0.0-0.5); Bilirubin Total 0.6 mg/dL (0.0-1.0); Blood Urea Nitrogen 18 mg/dL (9-16); Calcium 8.8 mg/dL (8.4-10.2); Carbon Dioxide 37 mmol/L (22-29); Chloride 96 mmol/L (96-108); Estimated Glomerular Filt Rate 55; Glucose Random 140 mg/dL (60-115); Potassium 4.6 mmol/L (3.3-5.1); Sodium 145 mmol/L (135-145); Total Protein 6.3 g/dL (6.5-8.0)
[2022-08-15 14:49] LABS: Erythrocyte Sedimentation Rate 16 MM/HR (0-20)
== END 2022-08-15 13:02 | disposition home or self-care (01) ==
LOC: HO.XRAY 13:01
PROVIDERS: Internal Medicine; PCP Internal Medicine; Visit Provider Hospitalist
DX: J96.11 Chronic respiratory failure with hypoxia (principal); J96.12 Chronic respiratory failure with hypercapnia; R07.81 Pleurodynia; J18.0 Bronchopneumonia, unspecified organism; D72.829 Elevated white blood cell count, unspecified; J44.9 Chronic obstructive pulmonary disease, unspecified; J45.41 Moderate persistent asthma with (acute) exacerbation
CPT/HCPCS: 36415; 71046; 80048; 80076; 82803; 85025; 85027; 85379; 85652; 99212

== ENCOUNTER → 2022-10-21 13:06 | Outpatient (BNVA) | payer MEDICARE, MEDICAID, SELFPAY | PROVIDERS: PCP Internal Medicine; Visit Provider Hospitalist | DX: J45.41 Moderate persistent asthma with (acute) exacerbation (principal); J96.11 Chronic respiratory failure with hypoxia; J96.12 Chronic respiratory failure with hypercapnia; J44.9 Chronic obstructive pulmonary disease, unspecified; R07.81 Pleurodynia; R06.00 Dyspnea, unspecified | CPT/HCPCS: 99212 ==

== ENCOUNTER → 2022-12-04 14:17 | Outpatient (BNVA) | payer MEDICARE, MEDICAID, SELFPAY | PROVIDERS: PCP Internal Medicine; Visit Provider Nurse Practitioner Family | DX: J44.1 Chronic obstructive pulmonary disease with (acute) exacerbation (principal); Z99.81 Dependence on supplemental oxygen | CPT/HCPCS: 99212 ==

== ENCOUNTER 2022-12-20 11:33 | Inpatient (IN) | payer MEDICARE, MEDICAID, SELFPAY ==
[2022-12-20] VITALS (11 sets, daily range): BP systolic 128–149; BP diastolic 74–98; PULSE 97–117; RESP 16–26; TEMP 35.9–37; O2SAT 92–99; BMI 37.6; BMI 48.5
--- NOTE | ~2022-12-20 | XR_ITS ---
EXAMINATION: XR CHEST CLINICAL INFORMATION: Shortness of breath COMPARISON: 08/15/2022 TECHNIQUE: 2 views of the chest were obtained. FINDINGS: Large body habitus. Lungs are well expanded and clear. No pleural effusion or pneumothorax. Cardiac silhouette is mildly enlarged. Also, the central pulmonary vessels are chronically enlarged. No evidence of abnormal thickening of septal lines. There are osteophytes at degenerated glenohumeral joints. Mild multilevel discovertebral degenerative change of the thoracic spine. XR/XR chest 2V IMPRESSION: * No evidence of pneumonia. * Mild cardiomegaly and chronically enlarged pulmonary vessels. Findings are suggestive of chronic pulmonary vascular congestion without overt edema.
--- NOTE | ~2022-12-20 | XR_ITS ---
EXAMINATION: XR CHEST CLINICAL INFORMATION: Shortness of breath and hypoxia COMPARISON: Previous chest x-rays most recent November 2022 TECHNIQUE: 2 views of the chest were obtained. FINDINGS: The cardiac silhouette is slightly enlarged. Her increased central bronchovascular markings. The lungs are otherwise clear. No pleural effusion or pneumothorax. Degenerative changes of the spine. XR/XR chest 2V IMPRESSION: Stable enlargement of the cardiac silhouette. Prominent central bronchovascular markings. Differential would include mild pulmonary edema and airways disease.
--- NOTE | 2022-12-20 11:39 | ECG_ITS ---
Test Reason : sob Blood Pressure : / mmHG Vent. Rate : 116 BPM Atrial Rate : 116 BPM P-R Int : 150 ms QRS Dur : 074 ms QT Int : 338 ms P-R-T Axes : 060 040 050 degrees QTc Int : 469 ms Sinus tachycardia Low voltage QRS Borderline ECG When compared with ECG of 24-JAN-2022 15:45, Vent. rate has increased BY 40 BPM T wave inversion less evident in Anterior leads Referred By: Denise Juarez Electronically Signed By:ANTWON EAST
--- NOTE | 2022-12-20 11:40 | ED.GENADULT ---
HPI - General Adult General Chief complaint: Upper Respiratory Symptoms Stated complaint: check for respiratory distress Time Seen by Provider: 12/20/22 12:28 Related Data Home Medications Medication Instructions Recorded Confirmed amlodipine 5 mg tablet 5 mg PO DAILY 01/24/22 12/20/22 hydroxyzine pamoate 25 mg capsule 25 mg PO Q6H PRN Anxiety / itching 01/24/22 12/20/22 potassium chloride 10 mEq 10 meq PO BID 01/24/22 12/20/22 tablet,extended release ropinirole 3 mg tablet 3 mg PO BEDTIME 01/24/22 12/20/22 simvastatin 10 mg tablet 10 mg PO BEDTIME 01/24/22 12/20/22 nebulizers 10/21/22 12/20/22 ascorbic acid (vitamin C) 500 mg 500 mg PO DAILY 12/20/22 12/20/22 tablet (Vitamin C) ferrous sulfate 324 mg (65 mg 324 mg PO DAILY 12/20/22 12/20/22 iron) tablet,delayed release hydrocodone 5 mg-acetaminophen 325 1 tab PO QID PRN knee pain 12/20/22 12/20/22 mg tablet levalbuterol HCl 1.25 mg/3 mL 1.25 mg inhalation QID 12/20/22 12/20/22 solution for nebulization lidocaine 5 % topical patch 1 patch topical DAILY back pain 12/20/22 12/20/22 (Lidoderm) magnesium oxide 400 mg (241.3 mg 400 mg PO BIDWM 12/20/22 12/20/22 magnesium) tablet Previous Rx's Medication Instructions Recorded montelukast 10 mg tablet 10 mg PO BEDTIME 90 days #90 tabs 09/08/20 (Singulair) fluticasone fur. 200 mcg-umeclid 1 inh inhalation DAILY 30 days #60 04/25/22 62.5 mcg-vilant 25 mcg ea inhalat.powder (Trelegy Ellipta) famotidine 40 mg tablet (Pepcid) 40 mg PO BEDTIME #30 tabs 08/15/22 omeprazole 40 mg capsule,delayed 40 mg PO BID #60 caps 08/29/22 release Ventolin HFA 90 mcg/actuation 2 puff PO Q4-6H PRN for wheezing 10/01/22 aerosol inhaler (albuterol sulfate) #54 grams ipratropium 0.5 mg-albuterol 3 mg 3 ml inhalation QID 30 days #360 mL 11/26/22 (2.5 mg base)/3 mL nebulization soln cyclobenzaprine 10 mg tablet 10 mg PO BEDTIME #14 tabs 12/04/22 furosemide 20 mg tablet (Lasix) 40 mg PO DAILY 14 days #14 tabs 12/25/22 levothyroxine 37.5 mcg capsule 37.5 mcg PO DAILY #30 caps 12/25/22 prednisone 10 mg tablet 10 mg PO DAILY #7 tabs 12/25/22 Allergies Allergy/AdvReac Type Severity Reaction Status Date / Time ampicillin Allergy Severe Rash and Uncoded 12/20/22 11:43 Hives naproxen Allergy Severe Rash and Uncoded 12/20/22 11:43 Hives slow bid Allergy Severe Rash and Uncoded 12/20/22 11:43 Hives tramadol Allergy Severe Rash and Uncoded 12/20/22 11:43 Hives PMFSH Past Medical History Medical History Asthma Asthma-COPD overlap syndrome Chronic respiratory failure COVID-19 Dyspnea Hypertension Hypothyroidism Pleuritic chest pain Social History Social History Household Members: Significant Other Household Members Other:: 1 Housing: House Do you presently have visiting nurse or other home services: No Patient Tobacco Use Status: Never used Tobacco Second Hand Smoke Exposure: No Substance Use Type: Marijuana Advance Directives Date on File: 01/25/22 service: No Current occupational status: unemployed and disabled Physical Exam ED Vital Signs: Vital Signs - 24 hr 12/20/22 11:35 12/20/22 12:00 12/20/22 12:33 Temperature 98.5 F Pulse Rate 113 H 108 H Respiratory Rate 26 H 25 H Blood Pressure 149/98 H 133/86 Pulse Oximetry 97 98 96 Oxygen Delivery Method Room Air Nasal Cannula Nasal Cannula Oxygen Flow Rate 4 12/20/22 12:52 12/20/22 14:00 12/20/22 15:31 Temperature Pulse Rate 117 H 106 H 107 H Respiratory Rate 16 16 20 Blood Pressure 128/74 Pulse Oximetry 98 Oxygen Delivery Method Nasal Cannula Oxygen Flow Rate 2 BMI result Body Mass Index 37.6 Course Course Course Narrative: RME performed by Denise Juarez PA-C. Patient is a 62 year old assigned female at presenting to the emergency department with increased shortness of breath. 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 Patient states that she has had issues ever since last May when she caught COVID. Patient states that she is on 2LPM of oxygen at baseline. Labs, imaging, and swab ordered. Patient placed back in the waiting room pending room availability and results. Patient was seen and evaluated by JARRED Becerra. Please refer to his note from this date. Medications Administered Discontinued Medications Generic Name Dose Route Start Last Admin Trade Name Freq PRN Reason Stop Dose Admin Hydrocodone Bitart/Acetaminophen 1 tab 12/20/22 22:08 12/25/22 05:36 Hydrocodone Bit/Acetam 5/325 Tablet PO 1 tab QID PRN Administration knee pain Albuterol Sulfate 7.5 mg 12/20/22 14:30 12/20/22 15:30 Albuterol Sulfate (0.083%) 2.5 Mg/3 Ml Vial.Neb INHALE 12/20/22 14:31 7.5 mg ONCE ONE Administration Albuterol Sulfate 2.5 mg 12/20/22 15:47 12/24/22 05:54 Albuterol Sulfate (0.083%) 2.5 Mg/3 Ml Vial.Neb INHALE 2.5 mg Q2H PRN Administration Shortness of Breath/Wheezing Albuterol/Ipratropium 3 ml 12/20/22 12:41 12/20/22 12:50 Albuterol/Iprat 2.5/0.5mg 3 Ml Ampul.Neb INHALE 12/20/22 12:42 3 ml ONCE ONE Administration Albuterol/Ipratropium 3 ml 12/20/22 16:00 12/23/22 11:14 Albuterol/Iprat 2.5/0.5mg 3 Ml Ampul.Neb INHALE 3 ml RQ4H WHILE AWAKE DANIELA Administration Albuterol/Ipratropium 3 ml 12/23/22 16:00 12/25/22 11:30 Albuterol/Iprat 2.5/0.5mg 3 Ml Ampul.Neb INHALE 3 ml RQID DANIELA Administration Amlodipine Besylate 5 mg 12/21/22 09:00 12/25/22 07:48 Amlodipine Besylate 5 Mg Tablet PO 5 mg DAILY DANIELA Administration Protocol Ascorbic Acid 500 mg 12/21/22 09:00 12/25/22 07:48 Ascorbic Acid 500 Mg Tablet PO 500 mg DAILY DANIELA Administration Atorvastatin Calcium 10 mg 12/21/22 21:00 12/21/22 20:57 Atorvastatin Calcium 10 Mg Tablet PO 10 mg BEDTIME DANIELA Administration Atorvastatin Calcium 10 mg 12/22/22 21:00 12/24/22 20:59 Atorvastatin Calcium 10 Mg Tablet PO 10 mg BEDTIME DANIELA Administration Cyclobenzaprine HCl 10 mg 12/20/22 14:31 12/20/22 14:37 Cyclobenzaprine Hcl 10 Mg Tablet PO 12/20/22 14:32 10 mg ONCE ONE Administration Cyclobenzaprine HCl 10 mg 12/21/22 21:00 12/21/22 20:56 Cyclobenzaprine Hcl 10 Mg Tablet PO 10 mg BEDTIME DANIELA Administration Cyclobenzaprine HCl 10 mg 12/22/22 21:00 12/25/22 07:47 Cyclobenzaprine Hcl 10 Mg Tablet PO 10 mg TID DANIELA Administration Enoxaparin Sodium 40 mg 12/20/22 16:00 12/24/22 15:41 Enoxaparin Sodium 40 Mg/0.4 Ml Syringe SUBCUT 40 mg Q24H DANIELA Administration Famotidine 40 mg 12/21/22 21:00 12/21/22 20:56 Famotidine 20 Mg Tablet PO 40 mg BEDTIME DANIELA Administration Famotidine 40 mg 12/22/22 21:00 12/24/22 20:58 Famotidine 20 Mg Tablet PO 40 mg BEDTIME DANIELA Administration Ferrous Sulfate 324 mg 12/21/22 09:00 12/25/22 07:48 Ferrous Sulfate 324 Mg Tablet.Dr PO 324 mg DAILY DANIELA Administration Fluticasone/Umeclidinium/Vilanterol 1 puff 12/21/22 08:00 12/25/22 07:57 Fluticasone/Umeclidinium/Vilanterol 200/62.5/25 Blst.W.Dev INHALE 1 puff RDAILY DANIELA Administration Furosemide 20 mg 12/21/22 09:00 12/25/22 07:47 Furosemide 20 Mg Tablet PO 20 mg DAILY DANIELA Administration Protocol Furosemide 20 mg 12/25/22 09:19 12/25/22 09:48 Furosemide 20 Mg Tablet PO 12/25/22 09:20 20 mg ONCE ONE Administration Protocol Hydroxyzine HCl 25 mg 12/20/22 22:08 12/24/22 16:45 Hydroxyzine Hcl 25 Mg Tablet PO 25 mg Q6H PRN Administration Anxiety / itching Magnesium Sulfate 2 gm in 50 mls @ 25 mls/hr 12/20/22 12:41 12/20/22 19:07 Magnesium Sulfate/H2o IV 12/20/22 14:40 Infused ONCE ONE Infusion Levothyroxine Sodium 50 mcg 12/21/22 06:00 12/24/22 05:42 Levothyroxine Sodium 50 Mcg Tablet PO 50 mcg DAILY@0600 DANIELA Administration Lidocaine 1 patch 12/21/22 09:00 12/25/22 07:48 Lidocaine 4 % Patch Adh..Patch TRANSDERMA 1 patch DAILY DANIELA Administration Magnesium Oxide 400 mg 12/21/22 08:00 12/25/22 07:47 Magnesium Oxide 400 Mg Tablet PO 400 mg BIDWM DANIELA Administration Melatonin 6 mg 12/20/22 15:47 12/24/22 21:05 Melatonin 3 Mg Tablet PO 6 mg BEDTIME PRN Administration Insomnia Methylprednisolone Sodium Succinate 125 mg 12/20/22 12:41 12/20/22 12:54 Methylprednisolone Sod Succ 125 Mg/2 Ml Vial IVPUSH 12/20/22 12:42 125 mg ONCE ONE Administration Methylprednisolone Sodium Succinate 40 mg 12/20/22 16:00 12/22/22 05:11 Methylprednisolone Sod Succ 40 Mg/Ml Vial IVPUSH 40 mg Q6H DANIELA Administration Montelukast Sodium 10 mg 12/21/22 21:00 12/21/22 20:56 Montelukast Sodium 10 Mg Tablet PO 10 mg BEDTIME DANIELA Administration Montelukast Sodium 10 mg 12/22/22 21:00 12/24/22 20:59 Montelukast Sodium 10 Mg Tablet PO 10 mg BEDTIME DANIELA Administration Morphine Sulfate 2 mg 12/21/22 07:56 12/22/22 08:27 Morphine Sulfate 2 Mg/Ml Cartridge IVPUSH 2 mg Q6H PRN Administration Pain, Severe (Pain Scale 7-10) Protocol Omeprazole 40 mg 12/21/22 06:30 12/25/22 05:31 Omeprazole 40 Mg Capsule.Dr PO 40 mg BID@0630,1630 DANIELA Administration Potassium Chloride 10 meq 12/21/22 09:00 12/25/22 07:47 Potassium Chloride Er 10 Meq Tablet.Er PO 10 meq BID DANIELA Administration Prednisone 40 mg 12/22/22 09:00 12/25/22 07:47 Prednisone 20 Mg Tablet PO 40 mg DAILY DANIELA Administration Ropinirole HCl 3 mg 12/21/22 21:00 12/21/22 20:55 Ropinirole Hcl 1 Mg Tablet PO 3 mg BEDTIME DANIELA Administration Ropinirole HCl 3 mg 12/22/22 21:00 12/24/22 20:58 Ropinirole Hcl 1 Mg Tablet PO 3 mg BEDTIME DANIELA Administration Sodium Chloride 3 ml 12/20/22 16:00 12/25/22 07:48 0.9 % Sodium Chloride Flush 3 Ml Syringe IVFLUSH 3 ml QSHIFT DANIELA Administration Medical Decision Making Lab Data 12/20/22 12:09 12/20/22 12:09 Labs: Lab Results 12/20/22 12/20/22 12/20/22 Range/Units 12:09 12:09 12:09 WBC 8.8 (4.8-10.8) X10*3/uL RBC 3.86 L (4.20-5.50) X10*6/uL Hgb 12.0 (12.0-16.0) g/dl Hct 38.6 (37.0-47.0) % MCV 100.0 H (80.0-98.0) fL MCH 31.1 (27.0-33.0) pg MCHC 31.1 (31.0-35.0) g/dl RDW 14.2 (11.0-16.0) % Plt Count 211 (160-400) X10*3/uL MPV 10.0 (9.4-12.3) fL Immature Gran % (Auto) 0.7 H (0.0-0.4) % Neut % (Auto) 81.3 H (45-73) % Lymph % (Auto) 12.0 L (20-40) % [place] % (Auto) 5.1 (2-11) % Eos % (Auto) 0.7 (0-4) % Baso % (Auto) 0.2 (0-2) % Lymph # (Auto) 1.1 L (1.2-4.9) X10*3/uL [place] # (Auto) 0.5 (0.1-1.2) X10*3/uL Eos # (Auto) 0.1 (0.0-0.4) X10*3/uL Baso # (Auto) 0.0 (0.0-0.2) X10*3/uL Abs Immat Gran (auto) 0.06 H (0.00-0.03) X10*3/uL Absolute Neuts (auto) 7.2 (2.0-8.3) x10*3/uL Absolute Nucleated RBC 0.000 (0.0-0.012) X10*3/uL Nucleated RBC % (auto) 0.0 (0.0-0.2) /100WBC VBG pH (7.32-7.43) VBG pCO2 mmHg VBG pO2 mmHg VBG HCO3 (22-26) mmol/L VBG O2 Saturation % VBG Base Excess mmol/L Sodium 144 (135-145) mmol/L Potassium 4.2 (3.3-5.1) mmol/L Chloride 98 (96-108) mmol/L Carbon Dioxide 36 H (22-29) mmol/L Anion Gap 14 (12-20) BUN 23 H (9-16) mg/dL Creatinine 1.00 (0.5-1.4) mg/dL Estim Creat Clear Calc 54.0 Estimated GFR 57 Random Glucose 102 (60-115) mg/dL Calcium 9.4 D (8.4-10.2) mg/dL Magnesium 2.0 (1.6-2.6) mg/dL Total Bilirubin 0.4 (0.0-1.0) mg/dL AST 14 (5-31) U/L ALT 15 (0-31) U/L Alkaline Phosphatase 84 (39-117) U/L Troponin I High Sens < 2.7 (<3.5-17.0) ng/L B-Natriuretic Peptide (<100) pg/mL Total Protein 7.3 (6.5-8.0) g/dL Albumin 3.9 (3.5-5.0) g/dL COVID-19 (KAREN) (Negative) COVID-19 Clin Com 12/20/22 12/20/22 12/20/22 Range/Units 12:09 12:09 12:12 WBC (4.8-10.8) X10*3/uL RBC (4.20-5.50) X10*6/uL Hgb (12.0-16.0) g/dl Hct (37.0-47.0) % MCV (80.0-98.0) fL MCH (27.0-33.0) pg MCHC (31.0-35.0) g/dl RDW (11.0-16.0) % Plt Count (160-400) X10*3/uL MPV (9.4-12.3) fL Immature Gran % (Auto) (0.0-0.4) % Neut % (Auto) (45-73) % Lymph % (Auto) (20-40) % [place] % (Auto) (2-11) % Eos % (Auto) (0-4) % Baso % (Auto) (0-2) % Lymph # (Auto) (1.2-4.9) X10*3/uL [place] # (Auto) (0.1-1.2) X10*3/uL Eos # (Auto) (0.0-0.4) X10*3/uL Baso # (Auto) (0.0-0.2) X10*3/uL Abs Immat Gran (auto) (0.00-0.03) X10*3/uL Absolute Neuts (auto) (2.0-8.3) x10*3/uL Absolute Nucleated RBC (0.0-0.012) X10*3/uL Nucleated RBC % (auto) (0.0-0.2) /100WBC VBG pH 7.42 (7.32-7.43) VBG pCO2 63 mmHg VBG pO2 37 mmHg VBG HCO3 41 H (22-26) mmol/L VBG O2 Saturation 51.0 % VBG Base Excess 14.3 mmol/L Sodium (135-145) mmol/L Potassium (3.3-5.1) mmol/L Chloride (96-108) mmol/L Carbon Dioxide (22-29) mmol/L Anion Gap (12-20) BUN (9-16) mg/dL Creatinine (0.5-1.4) mg/dL Estim Creat Clear Calc Estimated GFR Random Glucose (60-115) mg/dL Calcium (8.4-10.2) mg/dL Magnesium (1.6-2.6) mg/dL Total Bilirubin (0.0-1.0) mg/dL AST (5-31) U/L ALT (0-31) U/L Alkaline Phosphatase (39-117) U/L Troponin I High Sens (<3.5-17.0) ng/L B-Natriuretic Peptide 22 (<100) pg/mL Total Protein (6.5-8.0) g/dL Albumin (3.5-5.0) g/dL COVID-19 (KAREN) Negative (Negative) COVID-19 Clin Com See Note Discharge Plan Discharge Clinical Impression: Asthma-COPD overlap syndrome Patient Disposition: Admitted As Inpatient Interventions: Admission Worksheet (ED) Last Done: 12/20/22 18:20 Discharge Date/Time: 12/20/22 18:33
[2022-12-20 12:18] LABS: Venous Blood Gas Refer to POC result
[2022-12-20 12:19] LABS: VBG Base Excess 14.3 mmol/L; VBG HCO3 41 mmol/L (22-26); VBG pCO2 63 mmHg; VBG pH 7.42 (7.32-7.43); VBG pO2 37 mmHg
[2022-12-20 12:25] LABS: MANUAL DIFF FLAG NO
[2022-12-20 12:29] LABS: Basophils Percent Auto 0.2 % (0-2); Eosinophils Absolute Auto 0.1 X10*3/uL (0.0-0.4); Eosinophils Percent Auto 0.7 % (0-4); Hematocrit 38.6 % (37.0-47.0); Imm Gran Abs Auto 0.06 X10*3/uL (0.00-0.03); Imm Gran Pct Auto 0.7 % (0.0-0.4); Lymphocytes Absolute Auto 1.1 X10*3/uL (1.2-4.9); Mean Corpuscular HGB Conc 31.1 g/dl (31.0-35.0); Mean Corpuscular Hemoglobin 31.1 pg (27.0-33.0); Monocytes Absolute Auto 0.5 X10*3/uL (0.1-1.2); Monocytes Percent Auto 5.1 % (2-11); Neutrophils Absolute Auto 7.2 x10*3/uL (2.0-8.3); Neutrophils Percent Auto 81.3 % (45-73); Platelet Count 211 X10*3/uL (160-400); Red Blood Count 3.86 X10*6/uL (4.20-5.50); Red Cell Distribution Width 14.2 % (11.0-16.0); White Blood Count 8.8 X10*3/uL (4.8-10.8)
--- NOTE | 2022-12-20 12:35 | PC.NURSE ---
pt alert/oriented. reporting difficulty breathing since friday, but struggles baseline with COPD/asthma exacerbated by covid in May. pt on 2L O2 baseline at home. Pt brought straight back from triage and placed on 4L NC. In/exp wheezing heard throughout lungs. Sats stable in high 90s. labs drawn and covid swab done, pt back from imaging. IV inserted. pt also reports intermittent spasms of pain from abdomen to chest
[2022-12-20 12:43] LABS: COVID-19 Test Negative (Negative); IDNOW Serial# BCCEAD1C
[2022-12-20 12:48] LABS: Alanine Aminotransferase 15 U/L (0-31); Albumin Level 3.9 g/dL (3.5-5.0); Alkaline Phosphatase 84 U/L (39-117); Anion Gap 14 (12-20); Aspartate Amino Transferase 14 U/L (5-31); Bilirubin Total 0.4 mg/dL (0.0-1.0); Blood Urea Nitrogen 23 mg/dL (9-16); Calcium 9.4 mg/dL (8.4-10.2); Carbon Dioxide 36 mmol/L (22-29); Chloride 98 mmol/L (96-108); Estimated Glomerular Filt Rate 57; Glucose Random 102 mg/dL (60-115); Potassium 4.2 mmol/L (3.3-5.1); Sodium 144 mmol/L (135-145); Total Protein 7.3 g/dL (6.5-8.0)
[2022-12-20] MEDS: Albuterol/Iprat 2.5/0.5MG 3 ML AMPUL.NEB INHALE ×2 (12:50→18:41)
--- NOTE | 2022-12-20 12:50 | ED.GENADULT ---
HPI - General Adult General Chief complaint: Upper Respiratory Symptoms Stated complaint: check for respiratory distress Time Seen by Provider: 12/20/22 12:28 Source: patient Mode of arrival: ambulatory Limitations: no limitations History of Present Illness HPI narrative: 62-year-old female with past med history of asthma COPD and COVID in May return to ED for shortness of breath. Patient has had shortness of breath with coughing since having COVID in May. 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 Patient baseline is 2 L oxygen dependent now she is on 4 L. patient denies any leg swelling, calf pain, coughing up blood, or pleurisy. Related Data Home Medications Medication Instructions Recorded Confirmed amlodipine 5 mg tablet 5 mg PO DAILY 01/24/22 12/20/22 citalopram 40 mg tablet 40 mg PO DAILY 01/24/22 12/20/22 hydroxyzine pamoate 25 mg capsule 25 mg PO Q6H PRN Anxiety 01/24/22 12/20/22 levothyroxine 50 mcg tablet 50 mcg PO DAILY@0600 01/24/22 12/20/22 potassium chloride 10 mEq 10 meq PO BID 01/24/22 12/20/22 tablet,extended release ropinirole 3 mg tablet 3 mg PO BEDTIME 01/24/22 12/20/22 simvastatin 10 mg tablet 10 mg PO DAILY 01/24/22 12/20/22 trazodone 150 mg tablet 150 mg PO BEDTIME 01/24/22 12/20/22 prednisone 10 mg tablet 5 mg PO DAILY 04/25/22 12/20/22 nebulizers 10/21/22 12/20/22 Previous Rx's Medication Instructions Recorded montelukast 10 mg tablet 10 mg PO BEDTIME 90 days #90 tabs 09/08/20 (Singulair) fluticasone fur. 200 mcg-umeclid 1 inh inhalation DAILY 30 days #60 04/25/22 62.5 mcg-vilant 25 mcg ea inhalat.powder (Trelegy Ellipta) codeine 10 mg-guaifenesin 100 mg/5 10 ml PO Q6H PRN cough 10 days 07/30/22 mL oral liquid #300 mL levalbuterol HCl 1.25 mg/3 mL 1.25 mg (3 mL) inhalation QID 30 07/30/22 solution for nebulization (Xopenex) days #360 mL acetaminophen 300 mg-codeine 15 mg 1 tab PO Q8H PRN pain 10 days #30 08/15/22 tablet tabs famotidine 40 mg tablet (Pepcid) 40 mg PO BEDTIME #30 tabs 08/15/22 omeprazole 40 mg capsule,delayed 40 mg PO BID #60 caps 08/29/22 release Ventolin HFA 90 mcg/actuation 2 puff PO Q4-6H PRN for wheezing 10/01/22 aerosol inhaler (albuterol sulfate) #54 grams furosemide 20 mg tablet (Lasix) 20 mg PO DAILY 14 days #14 tabs 10/21/22 ipratropium 0.5 mg-albuterol 3 mg 3 ml inhalation QID 30 days #360 mL 11/26/22 (2.5 mg base)/3 mL nebulization soln azithromycin 250 mg tablet See Rx Instructions PO .COMPLEX #6 12/04/22 tabs cyclobenzaprine 10 mg tablet 10 mg PO BEDTIME #14 tabs 12/04/22 lidocaine 5 % topical patch 1 patch topical DAILY 30 days #30 12/04/22 (Lidoderm) ea prednisone 20 mg tablet See Rx Instructions PO DAILY 10 12/04/22 days #15 tabs Allergies Allergy/AdvReac Type Severity Reaction Status Date / Time ampicillin Allergy Severe Rash and Uncoded 12/20/22 11:43 Hives naproxen Allergy Severe Rash and Uncoded 12/20/22 11:43 Hives slow bid Allergy Severe Rash and Uncoded 12/20/22 11:43 Hives tramadol Allergy Severe Rash and Uncoded 12/20/22 11:43 Hives Review of Systems Review of Systems: Coughing, chronic shortness of breath due to long covid since may Yes all other systems are reviewed and are negative PMFSH Past Medical History Medical History Asthma Asthma-COPD overlap syndrome Chronic respiratory failure COVID-19 Dyspnea Hypertension Hypothyroidism Pleuritic chest pain Social History Social History Household Members: Significant Other Housing: House Do you presently have visiting nurse or other home services: No Patient Tobacco Use Status: Never used Tobacco Smoked in Last 30 Days: No Use of substances other than those prescribed or required for medical reasons: No Substance Use Type: Marijuana Advance Directives: Yes Advance Directives on File: Yes Advance Directives Date on File: 01/25/22 service: No Current occupational status: unemployed and disabled Physical Exam ED Vital Signs: Vital Signs - 24 hr 12/20/22 11:35 12/20/22 12:00 12/20/22 12:33 Temperature 98.5 F Pulse Rate 113 H 108 H Respiratory Rate 26 H 25 H Blood Pressure 149/98 H 133/86 Pulse Oximetry 97 98 96 Oxygen Delivery Method Room Air Nasal Cannula Nasal Cannula Oxygen Flow Rate 4 12/20/22 12:52 12/20/22 14:00 12/20/22 15:31 Temperature Pulse Rate 117 H 106 H 107 H Respiratory Rate 16 16 20 Blood Pressure 128/74 Pulse Oximetry 98 Oxygen Delivery Method Nasal Cannula Oxygen Flow Rate 2 BMI result Body Mass Index 37.6 Const General: cooperative, healthy appearing and comfortable Orientation/consciousness: oriented to person, oriented to place, oriented to time and patient oriented x3 HENMT Head: Yes normal to inspection, Yes No palpable skull fracture present, Yes normocephalic, Yes atraumatic and No abrasion Eyes General: appearance normal, both eyes and all related structures Neck Neck: Yes normal visual inspection, Yes full ROM, Yes no lymphadenopathy, Yes no meningeal signs, Yes trachea midline, Yes supple, No anterior neck swelling and No tender Chest Chest palpation & inspection: normal inspection of the chest and normal palpation of entire chest wall Resp Effort & Inspection: normal respiratory effort and able to speak in complete sentences Auscultation: wheezes expiratory wheezes (Diffuse wheezing) Cardio Jugular venous distension: no JVD Heart sounds: S1 normal heart sound present and S2 normal heart sound present GI Inspection: Yes normal to inspection and No abdominal wall ecchymosis Palpation (GI): Soft to palpation, not firm, nontender, no guarding and not rigid General: No CVA tenderness and Yes no CVA tenderness Back/Spine/Pelvis Back: no CVA tenderness, No CVA tenderness and No back tenderness Skin General skin exam: no rashes or lesions noted and elasticity normal Neuro General: oriented to person, oriented to place, oriented to time, patient oriented x3, tone normal, moves all extremities, Normal light touch and pain sensation, no meningeal signs, no focal motor deficits, CN's II-XI intact bilaterally and normal sensation to monofilament Extrem Other: Bilateral lower extremities negative for swelling, pitting edema, or calf tenderness. General: Yes normal to inspection and Yes full ROM Psych Appearance: grossly normal, well kempt and not disheveled Course Reevaluation(s) Reevaluation #1: With significant wheezing albuterol magnesium and Solu-Medrol ordered chest x-ray ordered cardiac enzymes and EKG ordered. Patient on 4 L oxygen. Time: 13:14 Reevaluation #2: VBG is at baseline. Patient's troponin and BNP negative. Waiting for chest x-ray results. COVID negative Time: 13:42 Reevaluation #3: Patient to be admitted to the hospital for asthma exacerbation/COPD. Chest x-ray negative pneumonia. Hospitalist accepted case Time: 16:29 Medications Administered Discontinued Medications Generic Name Dose Route Start Last Admin Trade Name Freq PRN Reason Stop Dose Admin Albuterol Sulfate 7.5 mg 12/20/22 14:30 12/20/22 15:30 Albuterol Sulfate (0.083%) 2.5 Mg/3 Ml Vial.Neb INHALE 12/20/22 14:31 7.5 mg ONCE ONE Administration Albuterol/Ipratropium 3 ml 12/20/22 12:41 12/20/22 12:50 Albuterol/Iprat 2.5/0.5mg 3 Ml Ampul.Neb INHALE 12/20/22 12:42 3 ml ONCE ONE Administration Cyclobenzaprine HCl 10 mg 12/20/22 14:31 12/20/22 14:37 Cyclobenzaprine Hcl 10 Mg Tablet PO 12/20/22 14:32 10 mg ONCE ONE Administration Magnesium Sulfate 2 gm in 50 mls @ 25 mls/hr 12/20/22 12:41 12/20/22 12:56 Magnesium Sulfate/H2o IV 12/20/22 14:40 25 mls/hr ONCE ONE Administration Methylprednisolone Sodium Succinate 125 mg 12/20/22 12:41 12/20/22 12:54 Methylprednisolone Sod Succ 125 Mg/2 Ml Vial IVPUSH 12/20/22 12:42 125 mg ONCE ONE Administration Medical Decision Making Medical Decision Making MDM Narrative: 62 yold female with pmh of asthma and COPD presents to ED for coughing, and shortness of breath. Patient has had long haul COVID cough shortness of breath since May. Patient is on long dose steroids and not improving. Patient baseline 2 L oxygen dependent but now using 4 L of oxygen. Diffuse wheezing given steroids, magnesium, and albuterol inhaler. EKG negative STEMI. Negative for swelling of lower extremities to indicate DVT or CHF. Not suspecting PE. O2 saturation 97% on 4 L but was still admit due to patient still having wheezing and complaining of shortness of breath. Differential Diagnosis Differential Diagnoses: The differential diagnosis associated with the presentation includes (Pneumonia, CHF, COPD, asthma, PE COVID, bronchitis) Admission/Observation Consideration of admission/observation: Escalation of care including admission/observation considered Consult Healthcare Provider Management of the patient was discussed with: Hospitalist (Dr. manjarrez) Lab Data MDM Lab Attestation statement: I reviewed the patient's lab results. 12/20/22 12:09 12/20/22 12:09 Labs: Lab Results 12/20/22 12/20/22 12/20/22 Range/Units 12:09 12:09 12:09 WBC 8.8 (4.8-10.8) X10*3/uL RBC 3.86 L (4.20-5.50) X10*6/uL Hgb 12.0 (12.0-16.0) g/dl Hct 38.6 (37.0-47.0) % MCV 100.0 H (80.0-98.0) fL MCH 31.1 (27.0-33.0) pg MCHC 31.1 (31.0-35.0) g/dl RDW 14.2 (11.0-16.0) % Plt Count 211 (160-400) X10*3/uL MPV 10.0 (9.4-12.3) fL Immature Gran % (Auto) 0.7 H (0.0-0.4) % Neut % (Auto) 81.3 H (45-73) % Lymph % (Auto) 12.0 L (20-40) % [place] % (Auto) 5.1 (2-11) % Eos % (Auto) 0.7 (0-4) % Baso % (Auto) 0.2 (0-2) % Lymph # (Auto) 1.1 L (1.2-4.9) X10*3/uL [place] # (Auto) 0.5 (0.1-1.2) X10*3/uL Eos # (Auto) 0.1 (0.0-0.4) X10*3/uL Baso # (Auto) 0.0 (0.0-0.2) X10*3/uL Abs Immat Gran (auto) 0.06 H (0.00-0.03) X10*3/uL Absolute Neuts (auto) 7.2 (2.0-8.3) x10*3/uL Absolute Nucleated RBC 0.000 (0.0-0.012) X10*3/uL Nucleated RBC % (auto) 0.0 (0.0-0.2) /100WBC VBG pH (7.32-7.43) VBG pCO2 mmHg VBG pO2 mmHg VBG HCO3 (22-26) mmol/L VBG O2 Saturation % VBG Base Excess mmol/L Sodium 144 (135-145) mmol/L Potassium 4.2 (3.3-5.1) mmol/L Chloride 98 (96-108) mmol/L Carbon Dioxide 36 H (22-29) mmol/L Anion Gap 14 (12-20) BUN 23 H (9-16) mg/dL Creatinine 1.00 (0.5-1.4) mg/dL Estim Creat Clear Calc 54.0 Estimated GFR 57 Random Glucose 102 (60-115) mg/dL Calcium 9.4 D (8.4-10.2) mg/dL Magnesium 2.0 (1.6-2.6) mg/dL Total Bilirubin 0.4 (0.0-1.0) mg/dL AST 14 (5-31) U/L ALT 15 (0-31) U/L Alkaline Phosphatase 84 (39-117) U/L Troponin I High Sens < 2.7 (<3.5-17.0) ng/L B-Natriuretic Peptide (<100) pg/mL Total Protein 7.3 (6.5-8.0) g/dL Albumin 3.9 (3.5-5.0) g/dL COVID-19 (KAREN) (Negative) COVID-19 Clin Com 12/20/22 12/20/22 12/20/22 Range/Units 12:09 12:09 12:12 WBC (4.8-10.8) X10*3/uL RBC (4.20-5.50) X10*6/uL Hgb (12.0-16.0) g/dl Hct (37.0-47.0) % MCV (80.0-98.0) fL MCH (27.0-33.0) pg MCHC (31.0-35.0) g/dl RDW (11.0-16.0) % Plt Count (160-400) X10*3/uL MPV (9.4-12.3) fL Immature Gran % (Auto) (0.0-0.4) % Neut % (Auto) (45-73) % Lymph % (Auto) (20-40) % [place] % (Auto) (2-11) % Eos % (Auto) (0-4) % Baso % (Auto) (0-2) % Lymph # (Auto) (1.2-4.9) X10*3/uL [place] # (Auto) (0.1-1.2) X10*3/uL Eos # (Auto) (0.0-0.4) X10*3/uL Baso # (Auto) (0.0-0.2) X10*3/uL Abs Immat Gran (auto) (0.00-0.03) X10*3/uL Absolute Neuts (auto) (2.0-8.3) x10*3/uL Absolute Nucleated RBC (0.0-0.012) X10*3/uL Nucleated RBC % (auto) (0.0-0.2) /100WBC VBG pH 7.42 (7.32-7.43) VBG pCO2 63 mmHg VBG pO2 37 mmHg VBG HCO3 41 H (22-26) mmol/L VBG O2 Saturation 51.0 % VBG Base Excess 14.3 mmol/L Sodium (135-145) mmol/L Potassium (3.3-5.1) mmol/L Chloride (96-108) mmol/L Carbon Dioxide (22-29) mmol/L Anion Gap (12-20) BUN (9-16) mg/dL Creatinine (0.5-1.4) mg/dL Estim Creat Clear Calc Estimated GFR Random Glucose (60-115) mg/dL Calcium (8.4-10.2) mg/dL Magnesium (1.6-2.6) mg/dL Total Bilirubin (0.0-1.0) mg/dL AST (5-31) U/L ALT (0-31) U/L Alkaline Phosphatase (39-117) U/L Troponin I High Sens (<3.5-17.0) ng/L B-Natriuretic Peptide 22 (<100) pg/mL Total Protein (6.5-8.0) g/dL Albumin (3.5-5.0) g/dL COVID-19 (KAREN) Negative (Negative) COVID-19 Clin Com See Note Independent Interpretation I performed an independent interpretation of an: EKG (Sinus tach. Reticular 116. Peer interval 150. QRS 70. QTC 469. Negative STEMI) and Plain X-Ray Radiology Impression Discussion of test interpretation with radiology: I have reviewed the radiologist's reading. Independent Historian Clinical information obtained from an independent historian. History obtained from or confirmed by: Spouse and EMS Discharge Plan Discharge Clinical Impression: Asthma-COPD overlap syndrome Patient Disposition: Admitted As Inpatient
[2022-12-20] MEDS: methylPREDNISolone Sod Succ 125 MG/2 ML VIAL IVPUSH (12:54)
[2022-12-20] MEDS: Magnesium Sulfate/H2O 2 GM/50 ML PIGGYBACK IV (12:56)
--- NOTE | 2022-12-20 12:57 | PC.NURSE ---
resp came to admin updraft, solumedrol and mag given per AUG.
[2022-12-20 13:02] LABS: Troponin-I High Sensitivity < 2.7 ng/L (<3.5-17.0)
[2022-12-20 13:33] LABS: B Type Natriuretic Peptide 22 pg/mL (<100)
--- NOTE | 2022-12-20 13:59 | PC.NURSE ---
pt continues to be wheezy throughout lungs post updraft and magnesium. Pt continues to be short of breath, on baseline 2L o2 sat 97%.
[2022-12-20] MEDS: Cyclobenzaprine HCl 10 MG TABLET PO ×2 (14:37→22:33)
--- NOTE | 2022-12-20 14:40 | PC.NURSE ---
pt on purewik. medicated per mar for muscular spasm pain snack given per PA approval
--- NOTE | 2022-12-20 15:21 | P.HPHOSP_ITS ---
History of Present Illness Date of Service: 12/20/22 Chief Complaint: Shortness of breath 62-year-old female past medical history significant for HTN, hypothyroidism asthma , COPD, long covid syndrome since having covid in May 2022, last hospitalized for copd in august 2022 prsenting with increasing shortness, she reports tht she hasn't really felt good since having covid and continue to get intermittent exacerbation and on and off steroid, on the his occasion she has be suffering from shortness of breath, wheezing, malaise, cough and subjective fever. CXR no pneumonia, WBC normal, VBG essentially unremarkable. O2 sat is 98 on room air. HR 106 ED tx: Bronchodilators, solu-medrol and magnesium Review of Systems Review of Systems: shortness of breath, cough, no fever. Yes all other systems are reviewed and are negative [facility] Medical History Asthma Asthma-COPD overlap syndrome Chronic respiratory failure COVID-19 Dyspnea Hypertension Hypothyroidism Pleuritic chest pain Social History Household Members: Significant Other Housing: House Do you presently have visiting nurse or other home services: No Patient Tobacco Use Status: Never used Tobacco Smoked in Last 30 Days: No Use of substances other than those prescribed or required for medical reasons: No Substance Use Type: Marijuana Advance Directives: Yes Advance Directives on File: Yes Advance Directives Date on File: 01/25/22 service: No Current occupational status: unemployed and disabled Meds Allergies Allergy/AdvReac Type Severity Reaction Status Date / Time ampicillin Allergy Severe Rash and Uncoded 12/20/22 11:43 Hives naproxen Allergy Severe Rash and Uncoded 12/20/22 11:43 Hives slow bid Allergy Severe Rash and Uncoded 12/20/22 11:43 Hives tramadol Allergy Severe Rash and Uncoded 12/20/22 11:43 Hives Home Medications Medication Instructions Recorded Confirmed Last Taken Type amlodipine 5 mg tablet 5 mg PO DAILY 01/24/22 12/20/22 01/24/22 History citalopram 40 mg tablet 40 mg PO DAILY 01/24/22 12/20/22 01/24/22 History hydroxyzine pamoate 25 mg capsule 25 mg PO Q6H PRN Anxiety 01/24/22 12/20/22 Unknown History levothyroxine 50 mcg tablet 50 mcg PO DAILY@0600 01/24/22 12/20/22 01/24/22 History potassium chloride 10 mEq 10 meq PO BID 01/24/22 12/20/22 01/24/22 History tablet,extended release ropinirole 3 mg tablet 3 mg PO BEDTIME 01/24/22 12/20/22 01/23/22 History simvastatin 10 mg tablet 10 mg PO DAILY 01/24/22 12/20/22 01/24/22 History trazodone 150 mg tablet 150 mg PO BEDTIME 01/24/22 12/20/22 01/23/22 History prednisone 10 mg tablet 5 mg PO DAILY 04/25/22 12/20/22 Unknown History nebulizers 10/21/22 12/20/22 Unknown History Physical Exam Vital Signs and Narrative: Vital Signs: Last Vital Signs Temp 98.5 F 12/20/22 11:35 Pulse 106 H 12/20/22 14:00 Resp 16 12/20/22 14:00 BP 128/74 12/20/22 14:00 Pulse Ox 98 12/20/22 14:00 O2 Del Method Nasal Cannula 12/20/22 14:00 O2 Flow Rate 2 12/20/22 14:00 BMI result Body Mass Index 37.6 Const: Other: Constitutional: Alert, in no distress, overweight. Mental Status: Oriented to person, place and time. Eyes: Pupils are equal, round and reactive to light. Ear, Nose and Throat: Oropharynx clear, mucous membranes moist. Respiratory: inspiratory and expiratory wheeze. Cardiovascular: S1 S2 regular. No murmurs, rubs or gallops. Gastrointestinal: Abdomen soft, non-tender, non-distended. Normal bowel sounds.? Neurologic: Cranial nerves II-XII grossly intact. No focal neurological deficits. Moves all extremities spontaneously.? Skin: No rashes or lesions.? Musculoskeletal: No cyanosis or clubbing. Psychiatric: Normal mood and affect? Results Labs 12/20/22 12:09 12/20/22 12:09 Labs: Laboratory Results - last 24 hr 12/20/22 12/20/22 12/20/22 12:09 12:09 12:09 MCV 100.0 H MCH 31.1 MCHC 31.1 RDW 14.2 Plt Count 211 MPV 10.0 Immature Gran % (Auto) 0.7 H Neut % (Auto) 81.3 H Lymph % (Auto) 12.[address] [place] % (Auto) 5.1 Eos % (Auto) 0.7 Baso % (Auto) 0.2 Lymph # (Auto) 1.[address] [place] # (Auto) 0.5 Eos # (Auto) 0.1 Baso # (Auto) 0.0 Abs Immat Gran (auto) 0.06 H Absolute Neuts (auto) 7.2 Absolute Nucleated RBC 0.000 Nucleated RBC % (auto) 0.0 VBG pH VBG pCO2 VBG pO2 VBG HCO3 VBG O2 Saturation VBG Base Excess Anion Gap 14 Estim Creat Clear Calc 54.0 Estimated GFR 57 Random Glucose 102 Calcium 9.4 D Magnesium 2.0 Total Bilirubin 0.4 AST 14 ALT 15 Alkaline Phosphatase 84 Troponin I High Sens < 2.7 B-Natriuretic Peptide Total Protein 7.3 Albumin 3.9 COVID-19 (KAREN) COVID-19 [employer] Com 12/20/22 12/20/22 12/20/22 12:09 12:09 12:12 MCV MCH MCHC RDW Plt Count MPV Immature Gran % (Auto) Neut % (Auto) Lymph % (Auto) [place] % (Auto) Eos % (Auto) Baso % (Auto) Lymph # (Auto) [place] # (Auto) Eos # (Auto) Baso # (Auto) Abs Immat Gran (auto) Absolute Neuts (auto) Absolute Nucleated RBC Nucleated RBC % (auto) VBG pH 7.42 VBG pCO2 63 VBG pO2 37 VBG HCO3 41 H VBG O2 Saturation 51.0 VBG Base Excess 14.3 Anion Gap Estim Creat Clear Calc Estimated GFR Random Glucose Calcium Magnesium Total Bilirubin AST ALT Alkaline Phosphatase Troponin I High Sens B-Natriuretic Peptide 22 Total Protein Albumin COVID-19 (KAREN) Negative COVID-19 Clin Com See Note Imaging Radiologist's Impressions: Impressions Chest X-Ray 12/20/22 12:37 IMPRESSION: * No evidence of pneumonia. * Mild cardiomegaly and chronically enlarged pulmonary vessels. Findings are suggestive of chronic pulmonary vascular congestion without overt edema. Assessment and Plan (1) Asthma-COPD overlap syndrome: Status: Acute Plan 62-year-old female with asthma-copd overlap syndrome, long covid syndrome here with exacerbation of asthma 1.Seere persistent asthma with exacerbation, i don't think there is component of infection -IV steroid, bronchodilators by Neb, morphine for acute resp distress, 2. Hypertension--continue Norvasc 3. Hypothyroidism--Levothyroxine for replacment 4. HLD--statin 5.GERD omeprazole Full code Lovenox Patient will require 2 midnights going forward to treat asthma exacerbation with IV steroids .? This cannot be achieved in the lesser acute setting Time Spent With Patient Time: Total time managing care of this patient today ____ minutes. Quality Stroke Does the patient have a stroke diagnosis?: No VTE Prior VTE?: No VTE Risk Level:: Medical - moderate - high VTE Device Contraindication: Treatment Not Tolerated VTE Drug Contraindication: N/A - Med Ordered
[2022-12-20] MEDS: Albuterol Sulfate (0.083%) 2.5 MG/3 ML VIAL.NEB 7.5 MG INHALE (15:30)
[2022-12-20 17:43] LABS: Troponin-I High Sensitivity < 2.7 ng/L (<3.5-17.0)
[2022-12-20] MEDS: Enoxaparin Sodium 40 MG/0.4 ML SYRINGE SUBCUT (17:56)
[2022-12-20] MEDS: methylPREDNISolone Sod Succ 40 MG/ML VIAL IVPUSH ×2 (17:58→22:07)
[2022-12-20] MEDS: 0.9 % Sodium Chloride Flush 3 ML SYRINGE IVFLUSH ×2 (18:02→22:07)
--- NOTE | 2022-12-20 18:10 | PHA.MEDREC ---
Pharmacy Consult ? Medication Reconciliation Pharmacy has completed the medication reconciliation. Spoke to patient to confirm meds. Patient states nebulizer medications have been scheduled as of lately 4 times daily. Patient also states they take furosemide 20mg daily, however last filled a 14 day supply on 10/21/22. Patient states they take prednisone 40mg daily as needed for copd exacerbation, but usually take prednisone 5mg daily.
--- NOTE | 2022-12-20 18:23 | PC.NURSE ---
Pt A&O, c/o intermitted pain to abdomen, flexiril had minimal effect. pending transport to
[2022-12-20] MEDS: Atorvastatin Calcium 10 MG TABLET PO (22:32)
[2022-12-20] MEDS: rOPINIRole HCL 1 MG TABLET 3 MG PO (22:32)
[2022-12-20] MEDS: Famotidine 20 MG TABLET 40 MG PO (22:33)
[2022-12-20] MEDS: Melatonin 3 MG TABLET 6 MG PO (22:34)
[2022-12-20] MEDS: hydrOXYzine HCL 25 MG TABLET PO (22:34)
[2022-12-20] MEDS: Montelukast Sodium 10 MG TABLET PO (22:34)
[2022-12-20] MEDS: Albuterol Sulfate (0.083%) 2.5 MG/3 ML VIAL.NEB INHALE (23:12)
[2022-12-21] VITALS (11 sets, daily range): BP systolic 132–149; BP diastolic 67–86; PULSE 97–117; RESP 16–20; TEMP 36.3–36.8; O2SAT 93–98
[2022-12-21] MEDS: Albuterol Sulfate (0.083%) 2.5 MG/3 ML VIAL.NEB INHALE (03:13)
[2022-12-21] MEDS: methylPREDNISolone Sod Succ 40 MG/ML VIAL IVPUSH ×4 (03:24→21:04)
[2022-12-21] MEDS: Levothyroxine Sodium 50 MCG TABLET PO (06:06)
[2022-12-21] MEDS: Omeprazole 40 MG CAPSULE.DR PO ×2 (06:06→16:01)
[2022-12-21] MEDS: Albuterol/Iprat 2.5/0.5MG 3 ML AMPUL.NEB INHALE ×4 (07:06→19:45)
--- NOTE | 2022-12-21 07:53 | P.PNIM_ITS ---
Subjective Subjective Date of Service: 12/21/22 Review of Systems f/u on shortness of breath d/t exacerbation of copd feels same, wheeaing, cough Physical Exam Vital Signs: Vital Signs: Last Vital Signs Temp 98 F 12/21/22 03:16 Pulse 115 H 12/21/22 07:08 Resp 20 12/21/22 07:08 BP 149/77 H 12/21/22 03:16 Pulse Ox 96 12/21/22 03:16 O2 Del Method Nasal Cannula 12/21/22 03:16 O2 Flow Rate 4 12/21/22 03:16 BMI result Body Mass Index 48.5 Const: Other: General: AO X 3, no acute distress Resp: A diffuse inspiratory and expiratory wheezes, no accessory muscle use CVS: S1,S2,RRR GI: +BS, NT, no distention Skin: No rash Neuro: motor grossly intact Psych: appropriate affect Objective Data Active Medications Hydrocodone Bitart/Acetaminophen (Hydrocodone Bit/Acetam 5/325 Tablet) 1 tab PO QID PRN PRN Reason: knee pain Al Hydroxide/Mg Hydroxide (Magnesium Hydrox/Alum Hydrox 30 Ml Oral.Susp) 30 ml PO Q4H PRN PRN Reason: Heartburn/Nausea Albuterol Sulfate (Albuterol Sulfate (0.083%) 2.5 Mg/3 Ml Vial.Neb) 2.5 mg INHALE Q2H PRN PRN Reason: Shortness of Breath/Wheezing Last Admin: 12/21/22 03:13 Dose: 2.5 mg Documented By: MARQUITA Albuterol/Ipratropium (Albuterol/Iprat 2.5/0.5mg 3 Ml Ampul.Neb) 3 ml INHALE RQ4H WHILE AWAKE [facility] Last Admin: 12/21/22 07:06 Dose: 3 ml Documented By: FREDA Amlodipine Besylate (Amlodipine Besylate 5 Mg Tablet) 5 mg PO DAILY [facility]; Protocol Ascorbic Acid (Ascorbic Acid 500 Mg Tablet) 500 mg PO DAILY [facility] Atorvastatin Calcium (Atorvastatin Calcium 10 Mg Tablet) 10 mg PO BEDTIME [facility] Last Admin: 12/20/22 22:32 Dose: 10 mg Documented By: GRACE Cyclobenzaprine HCl (Cyclobenzaprine Hcl 10 Mg Tablet) 10 mg PO BEDTIME [facility] Last Admin: 12/20/22 22:33 Dose: 10 mg Documented By: GRACE Enoxaparin Sodium (Enoxaparin Sodium 40 Mg/0.4 Ml Syringe) 40 mg SUBCUT Q24H [facility] Last Admin: 12/20/22 17:56 Dose: 40 mg Documented By: TY Famotidine (Famotidine 20 Mg Tablet) 40 mg PO BEDTIME [facility] Last Admin: 12/20/22 22:33 Dose: 40 mg Documented By: GRACE Ferrous Sulfate (Ferrous Sulfate 324 Mg Tablet.Dr) 324 mg PO DAILY [facility] Fluticasone/Umeclidinium/Vilanterol (Fluticasone/Umeclidinium/Vilanterol 200/62 .5/25 Blst.W.Dev) 1 puff INHALE RDAILY [facility] Furosemide (Furosemide 20 Mg Tablet) 20 mg PO DAILY [facility]; Protocol Hydroxyzine HCl (Hydroxyzine Hcl 25 Mg Tablet) 25 mg PO Q6H PRN PRN Reason: Anxiety / itching Last Admin: 12/20/22 22:34 Dose: 25 mg Documented By: GRACE Levalbuterol HCl (Levalbuterol Hcl 1.25 Mg/3 Ml Vial.Neb) 1.25 mg INHALE Q6H PRN PRN Reason: Wheezing Levothyroxine Sodium (Levothyroxine Sodium 50 Mcg Tablet) 50 mcg PO DAILY@0600 [facility] Last Admin: 12/21/22 06:06 Dose: 50 mcg Documented By: GRACE Lidocaine (Lidocaine 4 % Patch Adh..Patch) 1 patch TRANSDERMA DAILY [facility] Magnesium Hydroxide (Milk Of Magnesia 30 Ml Oral.Susp) 30 ml PO DAILY PRN PRN Reason: Constipation Magnesium Oxide (Magnesium Oxide 400 Mg Tablet) 400 mg PO BIDWM [facility] Melatonin (Melatonin 3 Mg Tablet) 6 mg PO BEDTIME PRN PRN Reason: Insomnia Last Admin: 12/20/22 22:34 Dose: 6 mg Documented By: GRACE Methylprednisolone Sodium Succinate (Methylprednisolone Sod Succ 40 Mg/Ml Vial) 40 mg IVPUSH Q6H [facility] Last Admin: 12/21/22 03:24 Dose: 40 mg Documented By: GRACE Montelukast Sodium (Montelukast Sodium 10 Mg Tablet) 10 mg PO BEDTIME [facility] Last Admin: 12/20/22 22:34 Dose: 10 mg Documented By: GRACE Omeprazole (Omeprazole 40 Mg Capsule.) 40 mg PO BID@0630,1630 [facility] Last Admin: 12/21/22 06:06 Dose: 40 mg Documented By: GRACE Ondansetron HCl (Ondansetron Hcl 4 Mg/2 Ml Vial) 4 mg IVPUSH Q8H PRN PRN Reason: Nausea and Vomiting Potassium Chloride (Potassium Chloride Er 10 Meq Tablet.Er) 10 meq PO BID [facility] Ropinirole HCl (Ropinirole Hcl 1 Mg Tablet) 3 mg PO BEDTIME [facility] Last Admin: 12/20/22 22:32 Dose: 3 mg Documented By: GRACE Sodium Chloride (0.9 % Sodium Chloride Flush 3 Ml Syringe) 3 ml IVFLUSH QSHIFT [facility] Last Admin: 12/20/22 22:07 Dose: 3 ml Documented By: GRACE Labs 12/20/22 12:09 12/20/22 12:09 Labs: Laboratory Results - last 24 hr 12/20/22 12/20/22 12/20/22 12:09 12:09 12:09 MCV 100.0 H MCH 31.1 MCHC 31.1 RDW 14.2 Plt Count 211 MPV 10.0 Immature Gran % (Auto) 0.7 H Neut % (Auto) 81.3 H Lymph % (Auto) 12.0 L Caldwell % (Auto) 5.1 Eos % (Auto) 0.7 Baso % (Auto) 0.2 Lymph # (Auto) 1.1 L Caldwell # (Auto) 0.5 Eos # (Auto) 0.1 Baso # (Auto) 0.0 Abs Immat Gran (auto) 0.06 H Absolute Neuts (auto) 7.2 Absolute Nucleated RBC 0.000 Nucleated RBC % (auto) 0.0 VBG pH VBG pCO2 VBG pO2 VBG HCO3 VBG O2 Saturation VBG Base Excess Anion Gap 14 Estim Creat Clear Calc 54.0 Estimated GFR 57 Random Glucose 102 Calcium 9.4 D Magnesium 2.0 Total Bilirubin 0.4 AST 14 ALT 15 Alkaline Phosphatase 84 Troponin I High Sens < 2.7 B-Natriuretic Peptide Total Protein 7.3 Albumin 3.9 COVID-19 (KAREN) COVID-19 Clin Com 12/20/22 12/20/22 12/20/22 12:09 12:09 12:12 MCV MCH MCHC RDW Plt Count MPV Immature Gran % (Auto) Neut % (Auto) Lymph % (Auto) Caldwell % (Auto) Eos % (Auto) Baso % (Auto) Lymph # (Auto) Caldwell # (Auto) Eos # (Auto) Baso # (Auto) Abs Immat Gran (auto) Absolute Neuts (auto) Absolute Nucleated RBC Nucleated RBC % (auto) VBG pH 7.42 VBG pCO2 63 VBG pO2 37 VBG HCO3 41 H VBG O2 Saturation 51.0 VBG Base Excess 14.3 Anion Gap Estim Creat Clear Calc Estimated GFR Random Glucose Calcium Magnesium Total Bilirubin AST ALT Alkaline Phosphatase Troponin I High Sens B-Natriuretic Peptide 22 Total Protein Albumin COVID-19 (KAREN) Negative COVID-19 Clin Com See Note 12/20/22 16:00 MCV MCH MCHC RDW Plt Count MPV Immature Gran % (Auto) Neut % (Auto) Lymph % (Auto) Caldwell % (Auto) Eos % (Auto) Baso % (Auto) Lymph # (Auto) Caldwell # (Auto) Eos # (Auto) Baso # (Auto) Abs Immat Gran (auto) Absolute Neuts (auto) Absolute Nucleated RBC Nucleated RBC % (auto) VBG pH VBG pCO2 VBG pO2 VBG HCO3 VBG O2 Saturation VBG Base Excess Anion Gap Estim Creat Clear Calc Estimated GFR Random Glucose Calcium Magnesium Total Bilirubin AST ALT Alkaline Phosphatase Troponin I High Sens < 2.7 B-Natriuretic Peptide Total Protein Albumin COVID-19 (KAREN) COVID-19 Clin Com Assessment and Plan (1) Asthma-COPD overlap syndrome: Status: Acute Plan 62-year-old female with asthma-copd overlap syndrome, long covid syndrome here with exacerbation of asthma 1.Seere persistent asthma with exacerbation, not yet improved -IV steroid, bronchodilators by Neb, morphine for acute resp distress, 2. Hypertension--continue Norvasc 3. Hypothyroidism--Levothyroxine for replacment 4. HLD--statin 5.GERD omeprazole Full code Lovenox Need for inpatient: exacerbation of asthma, not yet optimal for home Time Spent With Patient Time: Total time managing care of this patient today ____ minutes. Quality Stroke Does the patient have a stroke diagnosis?: No VTE Prior VTE?: No VTE Risk Level:: Medical - moderate - high VTE Device Contraindication: Treatment Not Tolerated VTE Drug Contraindication: N/A - Med Ordered
[2022-12-21] MEDS: Fluticasone/Umeclidinium/Vilanterol 200/62.5/25 BLST.W.DEV 1 PUFF INHALE (08:00)
[2022-12-21] MEDS: Furosemide 20 MG TABLET PO (08:22)
[2022-12-21] MEDS: Potassium Chloride ER 10 MEQ TABLET.ER PO ×2 (08:22→20:57)
[2022-12-21] MEDS: Magnesium Oxide 400 MG TABLET PO ×2 (08:22→16:01)
[2022-12-21] MEDS: Ascorbic Acid 500 MG TABLET PO (08:22)
[2022-12-21] MEDS: amLODIPine Besylate 5 MG TABLET PO (08:22)
[2022-12-21] MEDS: 0.9 % Sodium Chloride Flush 3 ML SYRINGE IVFLUSH ×3 (08:22→19:37)
[2022-12-21] MEDS: Ferrous Sulfate 324 MG TABLET.DR PO (08:22)
[2022-12-21] MEDS: Lidocaine 4 % Patch ADH..PATCH 1 PATCH TRANSDERMA (08:22)
[2022-12-21] MEDS: Morphine Sulfate 2 MG/ML CARTRIDGE IVPUSH ×3 (08:27→20:58)
--- NOTE | 2022-12-21 12:01 | PC.NURSE ---
Pt elevated AP HR 106, MD notified.
--- NOTE | 2022-12-21 15:51 | MHC.CM.PN ---
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
[2022-12-21] MEDS: Enoxaparin Sodium 40 MG/0.4 ML SYRINGE SUBCUT (16:01)
[2022-12-21] MEDS: rOPINIRole HCL 1 MG TABLET 3 MG PO (20:55)
[2022-12-21] MEDS: Montelukast Sodium 10 MG TABLET PO (20:56)
[2022-12-21] MEDS: Famotidine 20 MG TABLET 40 MG PO (20:56)
[2022-12-21] MEDS: Cyclobenzaprine HCl 10 MG TABLET PO (20:56)
[2022-12-21] MEDS: Atorvastatin Calcium 10 MG TABLET PO (20:57)
[2022-12-22] VITALS (10 sets, daily range): BP systolic 130–173; BP diastolic 62–83; PULSE 65–111; RESP 16–22; TEMP 36.3–37.2; O2SAT 95–98
[2022-12-22] MEDS: Albuterol Sulfate (0.083%) 2.5 MG/3 ML VIAL.NEB INHALE (02:24)
[2022-12-22] MEDS: Morphine Sulfate 2 MG/ML CARTRIDGE IVPUSH ×2 (02:27→08:27)
[2022-12-22] MEDS: methylPREDNISolone Sod Succ 40 MG/ML VIAL IVPUSH (05:11)
[2022-12-22] MEDS: Levothyroxine Sodium 50 MCG TABLET PO (05:11)
[2022-12-22] MEDS: Omeprazole 40 MG CAPSULE.DR PO ×2 (05:11→16:03)
[2022-12-22] MEDS: Fluticasone/Umeclidinium/Vilanterol 200/62.5/25 BLST.W.DEV 1 PUFF INHALE (07:18)
[2022-12-22] MEDS: Albuterol/Iprat 2.5/0.5MG 3 ML AMPUL.NEB INHALE ×4 (07:18→19:57)
[2022-12-22] MEDS: Lidocaine 4 % Patch ADH..PATCH 1 PATCH TRANSDERMA (08:10)
[2022-12-22] MEDS: Ferrous Sulfate 324 MG TABLET.DR PO (08:11)
[2022-12-22] MEDS: Ascorbic Acid 500 MG TABLET PO (08:11)
[2022-12-22] MEDS: Potassium Chloride ER 10 MEQ TABLET.ER PO ×2 (08:11→20:18)
[2022-12-22] MEDS: Furosemide 20 MG TABLET PO (08:11)
[2022-12-22] MEDS: amLODIPine Besylate 5 MG TABLET PO (08:11)
[2022-12-22] MEDS: predniSONE 20 MG TABLET 40 MG PO (08:11)
[2022-12-22] MEDS: 0.9 % Sodium Chloride Flush 3 ML SYRINGE IVFLUSH ×3 (08:11→23:40)
[2022-12-22] MEDS: Magnesium Oxide 400 MG TABLET PO ×2 (08:11→16:03)
--- NOTE | 2022-12-22 13:24 | HO.PM.IMPN ---
Subjective Subjective Date of Service: 12/22/22 Review of Systems f/u on shortness of breath d/t exacerbation of copd persistent sob, wheezing Physical Exam Vital Signs: Vital Signs: Last Vital Signs Temp 98.9 F 12/22/22 07:51 Pulse 107 H 12/22/22 11:22 Resp 20 12/22/22 11:22 BP 173/82 H 12/22/22 07:51 Pulse Ox 97 12/22/22 07:51 O2 Del Method Nasal Cannula 12/22/22 07:51 O2 Flow Rate 2.0 12/22/22 07:51 BMI result Body Mass Index 48.5 Const: Other: General: AO X 3, no acute distress Resp: less wheeze, no distress CVS: S1,S2,RRR GI: +BS, NT, no distention Skin: No rash Neuro: motor grossly intact Psych: appropriate affect Objective Data Active Medications Hydrocodone Bitart/Acetaminophen (Hydrocodone Bit/Acetam 5/325 Tablet) 1 tab PO QID PRN PRN Reason: knee pain Al Hydroxide/Mg Hydroxide (Magnesium Hydrox/Alum Hydrox 30 Ml Oral.Susp) 30 ml PO Q4H PRN PRN Reason: Heartburn/Nausea Albuterol Sulfate (Albuterol Sulfate (0.083%) 2.5 Mg/3 Ml Vial.Neb) 2.5 mg INHALE Q2H PRN PRN Reason: Shortness of Breath/Wheezing Last Admin: 12/22/22 02:24 Dose: 2.5 mg Documented By: MARQUITA Albuterol/Ipratropium (Albuterol/Iprat 2.5/0.5mg 3 Ml Ampul.Neb) 3 ml INHALE RQ4H WHILE AWAKE [facility] Last Admin: 12/22/22 11:19 Dose: 3 ml Documented By: FREDA Amlodipine Besylate (Amlodipine Besylate 5 Mg Tablet) 5 mg PO DAILY [facility]; Protocol Last Admin: 12/22/22 08:11 Dose: 5 mg Documented By: HINA Ascorbic Acid (Ascorbic Acid 500 Mg Tablet) 500 mg PO DAILY [facility] Last Admin: 12/22/22 08:11 Dose: 500 mg Documented By: HINA Atorvastatin Calcium (Atorvastatin Calcium 10 Mg Tablet) 10 mg PO BEDTIME [facility] Last Admin: 12/21/22 20:57 Dose: 10 mg Documented By: MESSI Cyclobenzaprine HCl (Cyclobenzaprine Hcl 10 Mg Tablet) 10 mg PO BEDTIME [facility] Last Admin: 12/21/22 20:56 Dose: 10 mg Documented By: MESSI Enoxaparin Sodium (Enoxaparin Sodium 40 Mg/0.4 Ml Syringe) 40 mg SUBCUT Q24H [facility] Last Admin: 12/21/22 16:01 Dose: 40 mg Documented By: HINA Famotidine (Famotidine 20 Mg Tablet) 40 mg PO BEDTIME [facility] Last Admin: 12/21/22 20:56 Dose: 40 mg Documented By: MESSI Ferrous Sulfate (Ferrous Sulfate 324 Mg Tablet.Dr) 324 mg PO DAILY [facility] Last Admin: 12/22/22 08:11 Dose: 324 mg Documented By: HINA Fluticasone/Umeclidinium/Vilanterol (Fluticasone/Umeclidinium/Vilanterol 200/62.5/25 Blst.W.Dev) 1 puff INHALE RDAILY [facility] Last Admin: 12/22/22 07:18 Dose: 1 puff Documented By: LUCIANO Furosemide (Furosemide 20 Mg Tablet) 20 mg PO DAILY [facility]; Protocol Last Admin: 12/22/22 08:11 Dose: 20 mg Documented By: HINA Hydroxyzine HCl (Hydroxyzine Hcl 25 Mg Tablet) 25 mg PO Q6H PRN PRN Reason: Anxiety / itching Last Admin: 12/20/22 22:34 Dose: 25 mg Documented By: GRACE Levalbuterol HCl (Levalbuterol Hcl 1.25 Mg/3 Ml Vial.Neb) 1.25 mg INHALE Q6H PRN PRN Reason: Wheezing Levothyroxine Sodium (Levothyroxine Sodium 50 Mcg Tablet) 50 mcg PO DAILY@0600 [facility] Last Admin: 12/22/22 05:11 Dose: 50 mcg Documented By: RANI Lidocaine (Lidocaine 4 % Patch Adh..Patch) 1 patch TRANSDERMA DAILY [facility] Last Admin: 12/22/22 08:10 Dose: 1 patch Documented By: HINA Magnesium Hydroxide (Milk Of Magnesia 30 Ml Oral.Susp) 30 ml PO DAILY PRN PRN Reason: Constipation Magnesium Oxide (Magnesium Oxide 400 Mg Tablet) 400 mg PO BIDWM [facility] Last Admin: 12/22/22 08:11 Dose: 400 mg Documented By: HINA Melatonin (Melatonin 3 Mg Tablet) 6 mg PO BEDTIME PRN PRN Reason: Insomnia Last Admin: 12/20/22 22:34 Dose: 6 mg Documented By: GRACE Montelukast Sodium (Montelukast Sodium 10 Mg Tablet) 10 mg PO BEDTIME [facility] Last Admin: 12/21/22 20:56 Dose: 10 mg Documented By: MESSI Morphine Sulfate (Morphine Sulfate 2 Mg/Ml Cartridge) 2 mg IVPUSH Q6H PRN; Protocol PRN Reason: Pain, Severe (Pain Scale 7-10) Last Admin: 12/22/22 08:27 Dose: 2 mg Documented By: HINA Omeprazole (Omeprazole 40 Mg Capsule.Dr) 40 mg PO BID@0630,1630 [facility] Last Admin: 12/22/22 05:11 Dose: 40 mg Documented By: RANI Ondansetron HCl (Ondansetron Hcl 4 Mg/2 Ml Vial) 4 mg IVPUSH Q8H PRN PRN Reason: Nausea and Vomiting Potassium Chloride (Potassium Chloride Er 10 Meq Tablet.Er) 10 meq PO BID [facility] Last Admin: 12/22/22 08:11 Dose: 10 meq Documented By: HINA Prednisone (Prednisone 20 Mg Tablet) 40 mg PO DAILY [facility] Last Admin: 12/22/22 08:11 Dose: 40 mg Documented By: HINA Ropinirole HCl (Ropinirole Hcl 1 Mg Tablet) 3 mg PO BEDTIME [facility] Last Admin: 12/21/22 20:55 Dose: 3 mg Documented By: MESSI Sodium Chloride (0.9 % Sodium Chloride Flush 3 Ml Syringe) 3 ml IVFLUSH QSHIFT [facility] Last Admin: 12/22/22 08:11 Dose: 3 ml Documented By: HINA Labs 12/20/22 12:09 12/20/22 12:09 Assessment and Plan (1) Asthma-COPD overlap syndrome: Status: Acute Plan 62-year-old female with asthma-copd overlap syndrome, long covid syndrome On home O2 here with exacerbation of asthma 1.Seere persistent asthma with exacerbation, improving slow -continue IV steroid for one more day, then to Prednisone tracey at dc 40x 3, 30x 3, 20 x 3, then 10 x 3. -Continue bronchodilators by Neb, morphine Sparingly for acute respiratory distress 2. Hypertension--continue home Norvasc 3. Hypothyroidism--Levothyroxine for replacement 4. HLD--statin 5.GERD omeprazole 6. Morobid obesity--weight loss advised through excercise Full code Lovenox Need for inpatient: exacerbation of asthma, not yet optimal for home, probably tomorrow Time Spent With Patient Time: Total time managing care of this patient today ____ minutes. Quality Stroke Does the patient have a stroke diagnosis?: No VTE Prior VTE?: No VTE Risk Level:: Medical - moderate - high VTE Device Contraindication: Treatment Not Tolerated VTE Drug Contraindication: N/A - Med Ordered
[2022-12-22] MEDS: HYDROcodone Bit/Acetam 5/325 TABLET 1 TAB PO (14:54)
[2022-12-22] MEDS: hydrOXYzine HCL 25 MG TABLET PO (14:59)
--- NOTE | 2022-12-22 15:01 | PC.NURSE ---
Pt having a panic attack and pain with coughing. States I'm so afraid i'll go to sleep and never wake up. Reassurance and PRN pain and axiety medication given.
--- NOTE | 2022-12-22 15:35 | PC.NURSE ---
Pt much calmer now, states relief from medication and 1:1 talking. aware.
[2022-12-22] MEDS: Enoxaparin Sodium 40 MG/0.4 ML SYRINGE SUBCUT (16:03)
[2022-12-22] MEDS: Cyclobenzaprine HCl 10 MG TABLET PO (20:18)
[2022-12-22] MEDS: Atorvastatin Calcium 10 MG TABLET PO (20:41)
[2022-12-22] MEDS: rOPINIRole HCL 1 MG TABLET 3 MG PO (20:41)
[2022-12-22] MEDS: Montelukast Sodium 10 MG TABLET PO (20:41)
[2022-12-22] MEDS: Famotidine 20 MG TABLET 40 MG PO (20:41)
[2022-12-23] VITALS (11 sets, daily range): BP systolic 131–157; BP diastolic 87–88; PULSE 97–126; RESP 16–22; TEMP 36–37; O2SAT 92–98
--- NOTE | 2022-12-23 | ECG_ITS ---
Test Reason : chest pain Blood Pressure : / mmHG Vent. Rate : 100 BPM Atrial Rate : 100 BPM P-R Int : 166 ms QRS Dur : 080 ms QT Int : 350 ms P-R-T Axes : 065 036 052 degrees QTc Int : 451 ms Normal sinus rhythm Normal ECG When compared with ECG of 20-DEC-2022 11:53, No significant change was found Referred By: Miguel Santos Electronically Signed By:ANTWON EAST
[2022-12-23] MEDS: Albuterol Sulfate (0.083%) 2.5 MG/3 ML VIAL.NEB INHALE (01:35)
[2022-12-23] MEDS: Albuterol/Iprat 2.5/0.5MG 3 ML AMPUL.NEB INHALE ×4 (06:25→19:58)
[2022-12-23] MEDS: Levothyroxine Sodium 50 MCG TABLET PO (06:26)
[2022-12-23] MEDS: Omeprazole 40 MG CAPSULE.DR PO ×2 (06:26→16:26)
[2022-12-23] MEDS: Ferrous Sulfate 324 MG TABLET.DR PO (07:41)
[2022-12-23] MEDS: Ascorbic Acid 500 MG TABLET PO (07:41)
[2022-12-23] MEDS: Furosemide 20 MG TABLET PO (07:42)
[2022-12-23] MEDS: Cyclobenzaprine HCl 10 MG TABLET PO ×3 (07:42→21:35)
[2022-12-23] MEDS: Magnesium Oxide 400 MG TABLET PO ×2 (07:43→16:26)
[2022-12-23] MEDS: predniSONE 20 MG TABLET 40 MG PO (07:43)
[2022-12-23] MEDS: amLODIPine Besylate 5 MG TABLET PO (07:43)
[2022-12-23] MEDS: Potassium Chloride ER 10 MEQ TABLET.ER PO ×2 (07:43→21:35)
[2022-12-23] MEDS: Lidocaine 4 % Patch ADH..PATCH 1 PATCH TRANSDERMA (07:43)
[2022-12-23] MEDS: 0.9 % Sodium Chloride Flush 3 ML SYRINGE IVFLUSH ×2 (07:44→16:27)
[2022-12-23] MEDS: HYDROcodone Bit/Acetam 5/325 TABLET 1 TAB PO ×2 (07:51→21:51)
[2022-12-23] MEDS: Fluticasone/Umeclidinium/Vilanterol 200/62.5/25 BLST.W.DEV 1 PUFF INHALE (09:05)
--- NOTE | 2022-12-23 12:53 | MHC.CM.PN ---
Per MD rounds patient will receive a Home Oxygen evaluation. DP home resumption of HAND COLLATOR services and home oxygen. Family will tranport at discharge.
[2022-12-23] MEDS: hydrOXYzine HCL 25 MG TABLET PO (13:51)
--- NOTE | 2022-12-23 14:59 | HO.PM.IMPN ---
Subjective Subjective Date of Service: 12/23/22 Interval History: complaining of shortness of breath requesting for CT chest and more oxygen currently on 2 L of oxygen with finger oximetry 96 to 98%, limited activity at home due to shortness of breath, feels sick since May when she had COVID, being followed by pulmonology being treated with steroids updrafts inhalers with no benefit, denies fever, no chills, no nausea, no vomiting, no abdominal pain or diarrhea. Review of Systems all other system reviewed and negative. Physical Exam Vital Signs: Vital Signs: Last Vital Signs Temp 98.2 F 12/23/22 03:19 Pulse 112 H 12/23/22 13:52 Resp 22 H 12/23/22 13:52 BP 157/87 H 12/23/22 13:52 Pulse Ox 94 12/23/22 13:52 O2 Del Method Nasal Cannula 12/23/22 03:19 O2 Flow Rate 3 12/23/22 13:52 BMI result Body Mass Index 48.5 Const: Other: General resting comfortably in no acute distress, talking in full sentences. Neck supple no JVD. CVS regular rate rhythm, Respiratory lungs bilateral upper airway expiratory wheeze, no respiratory distress, no ralesi. Gastrointestinal abdomen soft, nontender, bowel sounds audible, no guarding , no rigidity. Extremities no edema. Neuro non focal , speech clear. Skin no rash psych appropriate affect Objective Data Active Medications Hydrocodone Bitart/Acetaminophen (Hydrocodone Bit/Acetam 5/325 Tablet) 1 tab PO QID PRN PRN Reason: knee pain Last Admin: 12/23/22 07:51 Dose: 1 tab Documented By: ARLEEN Al Hydroxide/Mg Hydroxide (Magnesium Hydrox/Alum Hydrox 30 Ml Oral.Susp) 30 ml PO Q4H PRN PRN Reason: Heartburn/Nausea Albuterol Sulfate (Albuterol Sulfate (0.083%) 2.5 Mg/3 Ml Vial.Neb) 2.5 mg INHALE Q2H PRN PRN Reason: Shortness of Breath/Wheezing Last Admin: 12/23/22 01:35 Dose: 2.5 mg Documented By: BEKAH Albuterol/Ipratropium (Albuterol/Iprat 2.5/0.5mg 3 Ml Ampul.Neb) 3 ml INHALE RQID DANIELA Amlodipine Besylate (Amlodipine Besylate 5 Mg Tablet) 5 mg PO DAILY [facility]; Protocol Last Admin: 12/23/22 07:43 Dose: 5 mg Documented By: ARLEEN Ascorbic Acid (Ascorbic Acid 500 Mg Tablet) 500 mg PO DAILY [facility] Last Admin: 12/23/22 07:41 Dose: 500 mg Documented By: ARLEEN Atorvastatin Calcium (Atorvastatin Calcium 10 Mg Tablet) 10 mg PO BEDTIME [facility] Last Admin: 12/22/22 20:41 Dose: 10 mg Documented By: YAHIR Cyclobenzaprine HCl (Cyclobenzaprine Hcl 10 Mg Tablet) 10 mg PO TID [facility] Last Admin: 12/23/22 14:18 Dose: 10 mg Documented By: ARLEEN Enoxaparin Sodium (Enoxaparin Sodium 40 Mg/0.4 Ml Syringe) 40 mg SUBCUT Q24H [facility] Last Admin: 12/22/22 16:03 Dose: 40 mg Documented By: HINA Famotidine (Famotidine 20 Mg Tablet) 40 mg PO BEDTIME [facility] Last Admin: 12/22/22 20:41 Dose: 40 mg Documented By: YAHIR Ferrous Sulfate (Ferrous Sulfate 324 Mg Tablet.Dr) 324 mg PO DAILY [facility] Last Admin: 12/23/22 07:41 Dose: 324 mg Documented By: ARLEEN Fluticasone/Umeclidinium/Vilanterol (Fluticasone/Umeclidinium/Vilanterol 200/62.5/25 Blst.W.Dev) 1 puff INHALE RDAILY [facility] Last Admin: 12/23/22 09:05 Dose: 1 puff Documented By: YUSEF Furosemide (Furosemide 20 Mg Tablet) 20 mg PO DAILY [facility]; Protocol Last Admin: 12/23/22 07:42 Dose: 20 mg Documented By: ARLEEN Hydroxyzine HCl (Hydroxyzine Hcl 25 Mg Tablet) 25 mg PO Q6H PRN PRN Reason: Anxiety / itching Last Admin: 12/23/22 13:51 Dose: 25 mg Documented By: ARLEEN Levalbuterol HCl (Levalbuterol Hcl 1.25 Mg/3 Ml Vial.Neb) 1.25 mg INHALE Q6H PRN PRN Reason: Wheezing Levothyroxine Sodium (Levothyroxine Sodium 50 Mcg Tablet) 50 mcg PO DAILY@0600 [facility] Last Admin: 12/23/22 06:26 Dose: 50 mcg Documented By: YAHIR Lidocaine (Lidocaine 4 % Patch Adh..Patch) 1 patch TRANSDERMA DAILY [facility] Last Admin: 12/23/22 07:43 Dose: 1 patch Documented By: ARLEEN Magnesium Hydroxide (Milk Of Magnesia 30 Ml Oral.Susp) 30 ml PO DAILY PRN PRN Reason: Constipation Magnesium Oxide (Magnesium Oxide 400 Mg Tablet) 400 mg PO BIDWM [facility] Last Admin: 12/23/22 07:43 Dose: 400 mg Documented By: ARLEEN Melatonin (Melatonin 3 Mg Tablet) 6 mg PO BEDTIME PRN PRN Reason: Insomnia Last Admin: 12/20/22 22:34 Dose: 6 mg Documented By: GRACE Montelukast Sodium (Montelukast Sodium 10 Mg Tablet) 10 mg PO BEDTIME [facility] Last Admin: 12/22/22 20:41 Dose: 10 mg Documented By: YAHIR Omeprazole (Omeprazole 40 Mg Capsule.Dr) 40 mg PO BID@0630,1630 [facility] Last Admin: 12/23/22 06:26 Dose: 40 mg Documented By: YAHIR Ondansetron HCl (Ondansetron Hcl 4 Mg/2 Ml Vial) 4 mg IVPUSH Q8H PRN PRN Reason: Nausea and Vomiting Potassium Chloride (Potassium Chloride Er 10 Meq Tablet.Er) 10 meq PO BID [facility] Last Admin: 12/23/22 07:43 Dose: 10 meq Documented By: ARLEEN Prednisone (Prednisone 20 Mg Tablet) 40 mg PO DAILY [facility] Last Admin: 12/23/22 07:43 Dose: 40 mg Documented By: ARLEEN Ropinirole HCl (Ropinirole Hcl 1 Mg Tablet) 3 mg PO BEDTIME [facility] Last Admin: 12/22/22 20:41 Dose: 3 mg Documented By: YAHIR Sodium Chloride (0.9 % Sodium Chloride Flush 3 Ml Syringe) 3 ml IVFLUSH QSHIFT [facility] Last Admin: 12/23/22 07:44 Dose: 3 ml Documented By: ARLEEN Labs 12/20/22 12:09 12/20/22 12:09 Assessment and Plan (1) Asthma-COPD overlap syndrome: Status: Acute Plan 62-year-old female with asthma-copd overlap syndrome, long covid syndrome On home O2 here with exacerbation of asthma 1.Severe persistent asthma with exacerbation, patient clinically looks stable but does not feel well complaining of persistent shortness of breath worse with standing and ambulation on po Prednisone 40, DuoNeb q.4 hours while awake, as needed Xopenex, trilogy Rhoda Thornton . - obtain home O2 eval patient noted to be tachycardic with heart rate in 120 to 130 range improved immediately with rest, oxygenation remains stable 96 98% on 2 L since tachycardia was felt to be related to deconditioning PT eval obtained, with ambulation patient noted to have sinus tachycardia and developed chest discomfort, on examination noted to have reproducible left anterior chest and underneath breast pain will obtain EKG, troponin and chest x-ray case discussed with Dr. Reynoso he recommended chest x-ray, if all workup negative will recommend pulmonary rehab 2. Hypertension-- stable blood pressures ,continue home Norvasc 3. Hypothyroidism--Levothyroxine , check TSH 4. HLD--statin 5.GERD omeprazole 6. Morobid obesity--weight loss advised through excercise and low-calorie diet. Full code Lovenox Need for inpatient: exacerbation of asthma, chest pain and tachycardia with ambulation undergoing further workup Time Spent With Patient Time: Total time managing care of this patient today ____ minutes. Quality Stroke Does the patient have a stroke diagnosis?: No VTE Prior VTE?: No VTE Risk Level:: Medical - moderate - high VTE Device Contraindication: Treatment Not Tolerated VTE Drug Contraindication: N/A - Med Ordered
--- NOTE | 2022-12-23 14:59 | PC.RT ---
Pt walke with RT and PT with walker and oxygen. pt already has oxygen at home at 2 liters. pt started on 2 liters and walked 25 feet. pt c/o chest pain had to sit for [address] Santos called. Pt then proceeded to walk another 25 feet to her room and still c/o chest pain. Dr. Santos assessing pt and workup for cardiac. pt does need need more oxygen at home. Suggested upon discharge going to Pulmonary rehab. Dr. Santos to follow up with this discussion about Pulm Rehab
[2022-12-23] MEDS: Enoxaparin Sodium 40 MG/0.4 ML SYRINGE SUBCUT (16:26)
[2022-12-23 16:28] LABS: Troponin-I High Sensitivity < 2.7 ng/L (<3.5-17.0)
[2022-12-23 16:32] LABS: Thyroid Stimulating Hormone 0.16 uIU/mL (0.32-4.0)
[2022-12-23] MEDS: rOPINIRole HCL 1 MG TABLET 3 MG PO (21:35)
[2022-12-23] MEDS: Montelukast Sodium 10 MG TABLET PO (21:35)
[2022-12-23] MEDS: Famotidine 20 MG TABLET 40 MG PO (21:37)
[2022-12-23] MEDS: Atorvastatin Calcium 10 MG TABLET PO (21:37)
[2022-12-23] MEDS: Melatonin 3 MG TABLET 6 MG PO (21:54)
[2022-12-24] VITALS (12 sets, daily range): BP systolic 126–145; BP diastolic 69–92; PULSE 96–114; RESP 18–20; TEMP 36–36.7; O2SAT 91–98
[2022-12-24] MEDS: Omeprazole 40 MG CAPSULE.DR PO ×2 (05:42→16:43)
[2022-12-24] MEDS: Levothyroxine Sodium 50 MCG TABLET PO (05:42)
[2022-12-24] MEDS: HYDROcodone Bit/Acetam 5/325 TABLET 1 TAB PO ×2 (05:46→21:05)
[2022-12-24] MEDS: Albuterol Sulfate (0.083%) 2.5 MG/3 ML VIAL.NEB INHALE (05:54)
[2022-12-24] MEDS: Fluticasone/Umeclidinium/Vilanterol 200/62.5/25 BLST.W.DEV 1 PUFF INHALE (08:00)
[2022-12-24] MEDS: Albuterol/Iprat 2.5/0.5MG 3 ML AMPUL.NEB INHALE ×4 (08:00→19:43)
[2022-12-24] MEDS: Potassium Chloride ER 10 MEQ TABLET.ER PO ×2 (08:15→20:59)
[2022-12-24] MEDS: predniSONE 20 MG TABLET 40 MG PO (08:15)
[2022-12-24] MEDS: Magnesium Oxide 400 MG TABLET PO ×2 (08:15→16:43)
[2022-12-24] MEDS: Furosemide 20 MG TABLET PO (08:15)
[2022-12-24] MEDS: amLODIPine Besylate 5 MG TABLET PO (08:15)
[2022-12-24] MEDS: Cyclobenzaprine HCl 10 MG TABLET PO ×3 (08:15→20:58)
[2022-12-24] MEDS: Ferrous Sulfate 324 MG TABLET.DR PO (08:15)
[2022-12-24] MEDS: Ascorbic Acid 500 MG TABLET PO (08:15)
[2022-12-24] MEDS: Lidocaine 4 % Patch ADH..PATCH 1 PATCH TRANSDERMA (08:16)
[2022-12-24] MEDS: 0.9 % Sodium Chloride Flush 3 ML SYRINGE IVFLUSH ×4 (08:16→20:59)
--- NOTE | 2022-12-24 11:36 | MHC.CM.PN ---
PT rec Pulmonary rehab. Patient preferences obtained and referrals were sent. Patient received a bed offer from [address] [phone], [facility]. They will accept her tomorrow. DP to [place] via BLS.
--- NOTE | 2022-12-24 11:39 | P.PNIM_ITS ---
Subjective Subjective Date of Service: 12/24/22 Interval History: complaining of shortness of breath, No cough, O2 stable 96% on 2 L, denies chest pain, tolerating diet with no nausea, no vomiting, no abdominal pain no other acute events overnight. Review of Systems all other system reviewed and negative Physical Exam Vital Signs: Vital Signs: Last Vital Signs Temp 98.1 F 12/24/22 07:30 Pulse 104 H 12/24/22 08:02 Resp 20 12/24/22 08:02 BP 145/80 H 12/24/22 07:30 Pulse Ox 96 12/24/22 07:30 O2 Del Method Room Air 12/24/22 07:30 O2 Flow Rate 2 12/24/22 03:30 BMI result Body Mass Index 48.5 Const: Other: General? resting comfortably in no acute distress, talking in full sentences.? Neck supple no JVD. CVS? regular rate rhythm, Respiratory lungs? bilateral upper airway expiratory wheeze with forced breathing, no respiratory distress, no rales. Gastrointestinal abdomen soft, nontender, bowel sounds audible, no guarding , no rigidity. Extremities no edema. Neuro non focal , speech clear. Skin no rash psych appropriate affect Objective Data Active Medications Hydrocodone Bitart/Acetaminophen (Hydrocodone Bit/Acetam 5/325 Tablet) 1 tab PO QID PRN PRN Reason: knee pain Last Admin: 12/24/22 05:46 Dose: 1 tab Documented By: MOSHE Al Hydroxide/Mg Hydroxide (Magnesium Hydrox/Alum Hydrox 30 Ml Oral.Susp) 30 ml PO Q4H PRN PRN Reason: Heartburn/Nausea Albuterol Sulfate (Albuterol Sulfate (0.083%) 2.5 Mg/3 Ml Vial.Neb) 2.5 mg INHALE Q2H PRN PRN Reason: Shortness of Breath/Wheezing Last Admin: 12/24/22 05:54 Dose: 2.5 mg Documented By: WILBER Albuterol/Ipratropium (Albuterol/Iprat 2.5/0.5mg 3 Ml Ampul.Neb) 3 ml INHALE RQID DANIELA Last Admin: 12/24/22 11:38 Dose: 3 ml Documented By: FREDA Amlodipine Besylate (Amlodipine Besylate 5 Mg Tablet) 5 mg PO DAILY [facility]; Protocol Last Admin: 12/24/22 08:15 Dose: 5 mg Documented By: LIN Ascorbic Acid (Ascorbic Acid 500 Mg Tablet) 500 mg PO DAILY [facility] Last Admin: 12/24/22 08:15 Dose: 500 mg Documented By: LIN Atorvastatin Calcium (Atorvastatin Calcium 10 Mg Tablet) 10 mg PO BEDTIME [facility] Last Admin: 12/23/22 21:37 Dose: 10 mg Documented By: BECKY Cyclobenzaprine HCl (Cyclobenzaprine Hcl 10 Mg Tablet) 10 mg PO TID [facility] Last Admin: 12/24/22 08:15 Dose: 10 mg Documented By: LIN Enoxaparin Sodium (Enoxaparin Sodium 40 Mg/0.4 Ml Syringe) 40 mg SUBCUT Q24H [facility] Last Admin: 12/23/22 16:26 Dose: 40 mg Documented By: BECKY Famotidine (Famotidine 20 Mg Tablet) 40 mg PO BEDTIME [facility] Last Admin: 12/23/22 21:37 Dose: 40 mg Documented By: BECKY Ferrous Sulfate (Ferrous Sulfate 324 Mg Tablet.) 324 mg PO DAILY [facility] Last Admin: 12/24/22 08:15 Dose: 324 mg Documented By: LIN Fluticasone/Umeclidinium/Vilanterol (Fluticasone/Umeclidinium/Vilanterol 200/62.5/25 Blst.W.Dev) 1 puff INHALE RDAILY [facility] Last Admin: 12/24/22 08:00 Dose: 1 puff Documented By: FREDA Furosemide (Furosemide 20 Mg Tablet) 20 mg PO DAILY [facility]; Protocol Last Admin: 12/24/22 08:15 Dose: 20 mg Documented By: LIN Hydroxyzine HCl (Hydroxyzine Hcl 25 Mg Tablet) 25 mg PO Q6H PRN PRN Reason: Anxiety / itching Last Admin: 12/23/22 13:51 Dose: 25 mg Documented By: ARLEEN Levalbuterol HCl (Levalbuterol Hcl 1.25 Mg/3 Ml Vial.Neb) 1.25 mg INHALE Q6H PRN PRN Reason: Wheezing Levothyroxine Sodium (Levothyroxine Sodium 50 Mcg Tablet) 50 mcg PO DAILY@0600 [facility] Last Admin: 12/24/22 05:42 Dose: 50 mcg Documented By: MOSHE Lidocaine (Lidocaine 4 % Patch Adh..Patch) 1 patch TRANSDERMA DAILY [facility] Last Admin: 12/24/22 08:16 Dose: 1 patch Documented By: LIN Magnesium Hydroxide (Milk Of Magnesia 30 Ml Oral.Susp) 30 ml PO DAILY PRN PRN Reason: Constipation Magnesium Oxide (Magnesium Oxide 400 Mg Tablet) 400 mg PO BIDWM [facility] Last Admin: 12/24/22 08:15 Dose: 400 mg Documented By: LIN Melatonin (Melatonin 3 Mg Tablet) 6 mg PO BEDTIME PRN PRN Reason: Insomnia Last Admin: 12/23/22 21:54 Dose: 6 mg Documented By: BECKY Montelukast Sodium (Montelukast Sodium 10 Mg Tablet) 10 mg PO BEDTIME [facility] Last Admin: 12/23/22 21:35 Dose: 10 mg Documented By: BECKY Omeprazole (Omeprazole 40 Mg Capsule.Dr) 40 mg PO BID@0630,1630 [facility] Last Admin: 12/24/22 05:42 Dose: 40 mg Documented By: MOSHE Ondansetron HCl (Ondansetron Hcl 4 Mg/2 Ml Vial) 4 mg IVPUSH Q8H PRN PRN Reason: Nausea and Vomiting Potassium Chloride (Potassium Chloride Er 10 Meq Tablet.Er) 10 meq PO BID [facility] Last Admin: 12/24/22 08:15 Dose: 10 meq Documented By: LIN Prednisone (Prednisone 20 Mg Tablet) 40 mg PO DAILY [facility] Last Admin: 12/24/22 08:15 Dose: 40 mg Documented By: LIN Ropinirole HCl (Ropinirole Hcl 1 Mg Tablet) 3 mg PO BEDTIME [facility] Last Admin: 12/23/22 21:35 Dose: 3 mg Documented By: BECKY Sodium Chloride (0.9 % Sodium Chloride Flush 3 Ml Syringe) 3 ml IVFLUSH QSHIFT [facility] Last Admin: 12/24/22 08:16 Dose: 3 ml Documented By: LIN Labs 12/20/22 12:09 12/20/22 12:09 Labs: Laboratory Results - last 24 hr 12/23/22 12/23/22 15:33 15:33 Troponin I High Sens < 2.7 TSH 0.16 L Assessment and Plan (1) Asthma-COPD overlap syndrome: Status: Acute Plan 62-year-old female with asthma-copd overlap syndrome, long covid syndrome On home O2 here with exacerbation of asthma 1.Severe persistent asthma with exacerbation, acute exacerbation resolved , clinically stable but does not feel well complaining of persistent shortness of breath worse with standing and ambulation on po Prednisone 40, DuoNeb q.4 hours while awake, as needed Xopenex, trilogy Ellipta, Singulair . obtain home O2 eval oxygenation remains stable 96 98% on 2 L PT recommends pulmonary rehab sinus tachycardia with ambulation during PT likely related to deconditioning , low TSH, chest pain non cardiac with normal EKG and troponin likely musculoskeletal, reassured patient chest x-ray unchanged from before, showed prominent central bronchovascular markings differential mild pulmonary edema and airway disease. 2. Hypertension-- stable blood pressures ,continue home Norvasc 3. Hypothyroidism-on Levothyroxine ,TSH 0.16 , will lower dose of levothyroxine to 25 mcg and follow TSH in 6 weeks. 4. HLD--statin 5.GERD omeprazole 6. Morobid obesity--weight loss advised through excercise and low-calorie diet. Full code Lovenox Need for inpatient: patient ready for discharge/ awaiting bed in pulm rehab. Time Spent With Patient Time: Total time managing care of this patient today ____ minutes. Quality Stroke Does the patient have a stroke diagnosis?: No VTE Prior VTE?: No VTE Risk Level:: Medical - moderate - high VTE Device Contraindication: Treatment Not Tolerated VTE Drug Contraindication: N/A - Med Ordered
[2022-12-24] MEDS: Enoxaparin Sodium 40 MG/0.4 ML SYRINGE SUBCUT (15:41)
[2022-12-24] MEDS: hydrOXYzine HCL 25 MG TABLET PO (16:45)
[2022-12-24] MEDS: rOPINIRole HCL 1 MG TABLET 3 MG PO (20:58)
[2022-12-24] MEDS: Famotidine 20 MG TABLET 40 MG PO (20:58)
[2022-12-24] MEDS: Montelukast Sodium 10 MG TABLET PO (20:59)
[2022-12-24] MEDS: Atorvastatin Calcium 10 MG TABLET PO (20:59)
[2022-12-24] MEDS: Melatonin 3 MG TABLET 6 MG PO (21:05)
[2022-12-25 04:00] VITALS: BP 134/91; PULSE 108; RESP 18; TEMP 36.5; O2SAT 97
[2022-12-25] MEDS: Omeprazole 40 MG CAPSULE.DR PO (05:31)
[2022-12-25] MEDS: HYDROcodone Bit/Acetam 5/325 TABLET 1 TAB PO (05:36)
[2022-12-25 06:53] VITALS: BP 136/90; PULSE 98; RESP 18; TEMP 36.1; O2SAT 97
[2022-12-25] MEDS: Magnesium Oxide 400 MG TABLET PO (07:47)
[2022-12-25] MEDS: predniSONE 20 MG TABLET 40 MG PO (07:47)
[2022-12-25] MEDS: Cyclobenzaprine HCl 10 MG TABLET PO (07:47)
[2022-12-25] MEDS: Potassium Chloride ER 10 MEQ TABLET.ER PO (07:47)
[2022-12-25] MEDS: Furosemide 20 MG TABLET PO ×2 (07:47→09:48)
[2022-12-25] MEDS: Ferrous Sulfate 324 MG TABLET.DR PO (07:48)
[2022-12-25] MEDS: 0.9 % Sodium Chloride Flush 3 ML SYRINGE IVFLUSH (07:48)
[2022-12-25] MEDS: Ascorbic Acid 500 MG TABLET PO (07:48)
[2022-12-25] MEDS: Lidocaine 4 % Patch ADH..PATCH 1 PATCH TRANSDERMA (07:48)
[2022-12-25] MEDS: amLODIPine Besylate 5 MG TABLET PO (07:48)
[2022-12-25] MEDS: Albuterol/Iprat 2.5/0.5MG 3 ML AMPUL.NEB INHALE ×2 (07:57→11:30)
[2022-12-25] MEDS: Fluticasone/Umeclidinium/Vilanterol 200/62.5/25 BLST.W.DEV 1 PUFF INHALE (07:57)
[2022-12-25 07:59] VITALS: PULSE 107; RESP 20; O2SAT 97
--- NOTE | 2022-12-25 09:30 | PM.DS ---
DS: Providers Provider Date of Service: 12/25/22 Date of admission: 12/20/22 15:47 Primary care physician: Zeke Phelps MD DS: Diagnosis Discharge Diagnosis (1) Asthma-COPD overlap syndrome: Status: Acute DS: Summary Hospital Course Hospital Course: Date of Service: 12/20/22 Chief Complaint: Shortness of breath 62-year-old female past medical history significant for HTN, hypothyroidism asthma , COPD, long covid syndrome since having covid in May 2022, last hospitalized for copd in august 2022 prsenting with increasing shortness, she reports tht she hasn't really felt good since having covid and continue to get intermittent exacerbation and on and off steroid, on the his occasion she has be suffering from? shortness of breath, wheezing, malaise, cough and subjective fever.? CXR no pneumonia, WBC normal, VBG essentially unremarkable.? O2 sat is 98 on room air.? HR 106 ED tx: Bronchodilators, solu-medrol and magnesium. Hospital course: 62-year-old female with asthma-copd overlap syndrome, long covid syndrome On home O2 here with exacerbation of asthma 1.Severe persistent asthma with exacerbation, admitted to medical floor treated with IV steroids, scheduled and as needed DuoNeb treatment trilogy Rhoda Thornton patient responded well to above treatment ?? but continued to complain of shortness of breath, home O2 eval showed stable oxygenation 96 98% on 2 L, patient evaluated by Physical therapy they recommend pulmonary rehab , she is being discharged home on prednisone, updraft treatment and chronic home O2 of 2 L. complained of chest pain likely musculoskeletal , cardiac workup negative, chest x-ray showed pulmonary congestion therefore dose of Lasix increased to 40 mg daily follow BMP in 1 week to monitor electrolytes and renal function. ?? 2. Hypertension-- stable blood pressures ,continue home? Norvasc 3. Hypothyroidism-on Levothyroxine ,TSH 0.16 , dose of levothyroxine lowered to 37.5 mg recommend to follow TSH in 6 weeks, likely cause of sinus tachycardia with ambulation. 4. HLD--statin 5.GERD omeprazole 6. Morobid obesity--weight loss advised through excercise? and low-calorie diet. Time Spent with Patient Time attestation: Total time managing care of this patient today ____ minutes. Discharge coordination time: Greater than 30 minutes Quality: Safe Use of Opioids Does Pt have an Active Cancer Diagnosis on the Problem List?: No Quality: Stroke Does the patient have a stroke diagnosis?: No Physical Exam Vital Signs: Vital Signs: Last Vital Signs Temp 97 F 12/25/22 06:53 Pulse 107 H 12/25/22 07:59 Resp 20 12/25/22 07:59 BP 136/90 H 12/25/22 06:53 Pulse Ox 97 12/25/22 06:53 O2 Del Method Nasal Cannula 12/25/22 06:53 O2 Flow Rate 3 12/25/22 06:53 BMI result Body Mass Index 48.5 Const: Other: General? resting comfortably in no acute distress, talking in full sentences.? Neck supple no JVD. CVS? regular rate rhythm, Respiratory lungs? bilateral upper airway expiratory wheeze with forced breathing, no respiratory distress, no rales. Gastrointestinal abdomen soft, nontender, bowel sounds audible, no guarding , no rigidity. Extremities no edema. Neuro non focal , speech clear. Skin no rash psych appropriate affect Discharge Plan Discharge Anticipated Discharge Date/Time: 12/25/22 09:20 Patient Disposition: Xfer SNF Discharge Diagnosis: Acute asthma exacerbation Referrals: Zeke Phelps MD [Primary Care Provider] - 1 Week Discharge Medications: New levothyroxine 37.5 mcg capsule 37.5 mcg PO DAILY Qty: 30 0RF prednisone 10 mg tablet 10 mg PO DAILY Qty: 7 0RF Continued omeprazole 40 mg capsule,delayed release(DR/EC) 40 mg PO BID Qty: 60 3RF albuterol sulfate [Ventolin HFA] 90 mcg/actuation HFA aerosol inhaler 2 puff PO Q4-6H PRN (Reason: for wheezing) Qty: 54 0RF ipratropium-albuterol 0.5 mg-3 mg(2.5 mg base)/3 mL solution for nebulization 3 ml inhalation QID 30 Days Qty: 360 11RF ropinirole 3 mg tablet 3 mg PO BEDTIME simvastatin 10 mg tablet 10 mg PO BEDTIME potassium chloride 10 mEq tablet extended release 10 meq PO BID amlodipine 5 mg tablet 5 mg PO DAILY hydroxyzine pamoate 25 mg capsule 25 mg PO Q6H PRN (Reason: Anxiety / itching) hydrocodone-acetaminophen 5-325 mg tablet 1 tab PO QID PRN (Reason: knee pain) magnesium oxide 400 mg (241.3 mg magnesium) tablet 400 mg PO BIDWM ascorbic acid (vitamin C) [Vitamin C] 500 mg tablet 500 mg PO DAILY levalbuterol HCl 1.25 mg/3 mL solution for nebulization 1.25 mg inhalation QID lidocaine [Lidoderm] 5 % adhesive patch,medicated 1 patch topical DAILY Rx Instructions: leave on most painful area for up to 12 hrs ferrous sulfate 324 mg (65 mg iron) Tablet,Delayed Release (Dr/Ec) 324 mg PO DAILY montelukast [Singulair] 10 mg tablet 10 mg PO BEDTIME 90 Days Qty: 90 3RF Trelegy Ellipta 200-62.5-25 mcg blister with device 1 inh inhalation DAILY 30 Days Qty: 60 12RF famotidine [Pepcid] 40 mg tablet 40 mg PO BEDTIME Qty: 30 3RF cyclobenzaprine 10 mg tablet 10 mg PO BEDTIME Qty: 14 0RF Changed furosemide [Lasix] 20 mg tablet 40 mg PO DAILY 14 Days Qty: 14 0RF Discontinued levothyroxine 50 mcg tablet 50 mcg PO DAILY@0600 prednisone 20 mg tablet 40 mg PO DAILY PRN (Reason: copd exacerbation) Rx Instructions: PT STATES TAKE 40MG FOR EXACERBATION; USUALLY DOSE IS 5MG DAILY. prednisone 5 mg Tablet 5 mg PO DAILY No Action (DME) nebulizers Misc See Rx Instructions .Route Rx Instructions: As directed Discharge Orders: Discharge Order (Routine); Ordered 12/25/22 Ordered By: Miguel Santos Diet: Low fat, low cholesterol Activity on Discharge: As tolerated Stand Alone Forms: Patient Portal Discharge page Care Plan Goals: continue home inhalers increase dose of Lasix to 40 mg by mouth daily CHECK BMP ON DECEMBER 30 MONITOR LYTES AND RENAL FUNCTION decrease dose of levothyroxine to 37.5 mg check TSH IN 6 WEEKS Health Concerns: hypothyroidism /obesity Plan of Treatment: outpatient follow-up with pulmonology Dr. Reynoso and primary care physician call for appointment Assessment: as above
--- NOTE | 2022-12-25 10:21 | MHC.CM.PN ---
IMM 12/25/27 Patient is discharged today for Pulmonary rehab. The patient will transfer to [facility]. Transport via BLS, is booked for 12:30pm.
[2022-12-25 11:36] VITALS: PULSE 103; RESP 20; O2SAT 96
== END 2022-12-25 12:15 | disposition skilled nursing facility (03) | DRG 202 ==
LOC: HO.ED 16:36 → HO.EDOVER 17:10 → HO.S3 17:40
PROVIDERS: Physician Assistant; Physician Assistant Medical; Admitting Provider Internal Medicine; Emergency Provider Emergency Medicine; PCP Internal Medicine; Visit Provider Hospitalist
DX: J45.51 Severe persistent asthma with (acute) exacerbation (principal); J44.1 Chronic obstructive pulmonary disease with (acute) exacerbation; Z68.42 Body mass index [BMI] 45.0-49.9, adult; E66.01 Morbid (severe) obesity due to excess calories; Z71.3 Dietary counseling and surveillance; I10 Essential (primary) hypertension; K21.9 Gastro-esophageal reflux disease without esophagitis; U09.9 Post COVID-19 condition, unspecified; E03.9 Hypothyroidism, unspecified; Z79.51 Long term (current) use of inhaled steroids; Z79.899 Other long term (current) drug therapy
CPT/HCPCS: 36415; 71046; 80053; 82803; 83735; 83880; 84443; 84484; 85025; 87635; 93005; 94640; 97162; 99212; 99285; J1650; J2270; J2920; J2930; J3475

== ENCOUNTER 2023-01-08 09:39 | Outpatient (AMB) | payer MEDICARE, MEDICAID, SELFPAY ==
[2023-01-08 09:41] VITALS: PULSE 91; O2SAT 95; BMI 41.8
--- NOTE | 2023-01-08 09:41 | MHC.OFFVIS ---
Intake Vital Signs 01/08/23 09:41 Height 4 ft 10 in Weight 200 lb BMI 41.8 Pulse 91 Pulse Source Pulse Oximeter Pulse Oximetry (%) 95 Oxygen Delivery Method Room Air Comment 2 Liters Oxygen([facility]) Intake Visit Reasons: Hospital Follow Up Track Supervisor Required: No Allergies ampicillin Allergy (Severe, Uncoded 01/08/23 09:42) Rash and Hives naproxen Allergy (Severe, Uncoded 01/08/23 09:42) Rash and Hives slow bid Allergy (Severe, Uncoded 01/08/23 09:42) Rash and Hives tramadol Allergy (Severe, Uncoded 01/08/23 09:42) Rash and Hives HPI HPI Comments History of Present Illness Details The patient is a 62-year-old woman known asthma COPD overlap syndrome, chronic hypercarbic respiratory failure on a trilogy at night and also has oxygen during the daytime. She continues use the noninvasive ventilator with very good effect. She does use it every night. She has been getting supplies through her [employer] company, [employer]. She continues use her respiratory medications of the recently she ran out and she started to develop increasing chest tightness and shortness of breath. Therefore I will make sure to send her all medications to the pharmacy. She complains of dyspnea on exertion [id number] severity. She does get relief from the oxygen. Otherwise patient is without any new complaints. Hopefully, will have her come in during the next visit so we can do a proper examination and also plan for additional laboratory, breathing andimaging studies. 07/30/2022 the patient is here for sick visit. The patient had developed COVID-19 and did take packs loaded. However, her respiratory symptoms worsened significantly after worse. She feels that she is dying. She complains of significant chest tightness and shortness of breath. Has a hard time breathing even with the oxygen. Over the weekend the patient is having hard time so she was taken to the [facility] ED. There she apparently underwent a CT scan of the chest ruling out PE and also pneumonia. She had blood work which was all reassuring per report. She was given a course of prednisone and was given azithromycin I believe. The patient however has not been able to feel better. She still getting yellow sputum. She is still congested and feel has the significant shortness of breath. Initially on exam the patient is having wheezing although very diminished. She received 3 ampules of Xopenex 1.25 mg via nebulizer and open in her airways nicely although it demonstrated increased wheezing. Therefore the patient receive Solu-Medrol 125 mg IM x1. She was sent additional at prednisone to the pharmacy. In the meantime she did have postnasal drip with purulent secretions coming up from the sinuses so therefore she has sinusitis and I am going to send her Levaquin for that. Will also provide with cough medication at this time. The patient is to stay hydrated and hopefully she can starts feel better. If however symptoms worsening then she may have to go back to the ER for failing outpatient therapy. 10/21/2022 the patient is here for pulmonary follow-up visit. She is going to be well. Complains of shortness of breath with minimal activity. Complaints of chest tightness and wheezing. She completed the prednisone and antibiotics without any significant improvement. She has been using the nebulizer every 2 hours because of the shortness of breath. We did review her chest x-ray demonstrating some perihilar congestion and she is having some lower extremity edema. Therefore, will go ahead and put on some Lasix to try to help with volume status. I am hopeful that that will help with her breathing. In addition to that the patient is using her oxygen. She completed the prednisone. Will try to minimize her use of prednisone but she can go down to a maintenance dose of 5 mg daily. I will send a few more just in case she has a worsening episode. The patient needs to undergo an echocardiogram. She also has had having reflux issues. She is wondering if that could be activating her asthma. She was set up with a surgeon in the past for a fundoplication. Will have her undergo a barium swallow. In view of her chest pains and the x-ray demonstrating some minimal changes will go ahead and request a CT scan of the chest. She did have a negative D-dimer so she does not need contrast. 01/08/2023 the patient is here for a hospital follow-up visit. She was admitted to the hospital with acute COPD exacerbation and also respiratory failure. The patient required additional oxygen. She had an x-ray demonstrating pneumonitis. Her BMP was normal. She is waiting for an echocardiogram. She is also scheduled for CT scan of the chest. In the meantime we did review her blood work and her blood gas demonstrated a pCO2 greater than 60. This suggest chronic hypercarbic respiratory failure secondary to her COPD. The patient has had a noninvasive ventilator in the past. But her condition had improved and was able to be discontinued. Then after COVID-19 her respiratory status has been worsening and now looks like she requires the noninvasive ventilator again. The patient has hypercarbic respiratory failure due to her COPD and likely has the increased risk for rehospitalization and a poor prognosis. A noninvasive ventilator will provide her better gas exchange improve her prognosis and decrease hospitalizations. Will work with the local [employer] in order to get her back on a noninvasive ventilator per in the meantime the patient is start pulmonary rehab. She is a currently homebound and getting VNA services at home. She can start doing online pulmonary rehab at this time. She is weaning off the prednisone. Clinically the patient is feeling better. [facility] Medical History Asthma Asthma-COPD overlap syndrome Chronic respiratory failure COVID-19 Dyspnea Hypertension Hypothyroidism Pleuritic chest pain Social History Household Members: Significant Other Household Members Other:: 1 Housing: House Do you presently have visiting nurse or other home services: No Patient Tobacco Use Status: Never used Tobacco Second Hand Smoke Exposure: No Substance Use Type: Marijuana Advance Directives Date on File: 01/25/22 service: No Current occupational status: unemployed and disabled Review of Systems Const Reports fatigue, Reports malaise and Denies night sweats ENT Denies change in voice, Reports dizziness, Denies lip swelling, Denies mouth pain, Reports nasal congestion, Reports nasal discharge and Denies tongue swelling Card Denies chest pain, Reports leg edema, Denies dyspnea and Reports dyspnea on exertion Resp Denies change in phlegm color, Reports chest congestion, Reports cough, Denies hemoptysis, Denies pain on inspiration, Denies pain with cough, Denies dyspnea, Reports dyspnea on exertion and Denies wheezing GI Denies abdominal pain, Reports dyspepsia and Reports heartburn Musc Denies no additional complaints Neuro Denies Neuro-related abnormal movements and Reports dizziness Psych Denies no additional complaints Endo Reports fatigue Andi/Lymph Denies easy bleeding and Denies lymphadenopathy Aller/Immun Denies lip swelling, Denies tongue swelling and Denies wheezing Physical Exam Vital Signs: Last Vital Signs Pulse 91 01/08/23 09:41 Pulse Ox 95 01/08/23 09:41 Oxygen Delivery Method Room Air 01/08/23 09:41 BMI result Body Mass Index 41.8 Const General: alert Neck Neck: Yes normal visual inspection, Yes full ROM and Yes no lymphadenopathy Chest Chest palpation & inspection: tenderness pectoral muscle, sternum and costochondral junction Resp Auscultation: no crackles, no rhonchi, no wheezes and diminished lung sounds Cardio Rate: regular rate Rhythm: regular rhythm Heart sounds: S1 normal heart sound present and S2 normal heart sound present GI Palpation (GI): Soft to palpation and nontender Auscultation: normal bowel sounds Skin General skin exam: rashes and/or lesions noted Extrem General: Yes edema Assessment & Plan Assessment & Plan (1) Chronic respiratory failure: Code(s): J96.10 - Chronic respiratory failure, unspecified whether with hypoxia or hypercapnia Qualifiers: Respiratory failure complication: hypoxia and hypercapnia Qualified Code(s): J96.11 - Chronic respiratory failure with hypoxia; J96.12 - Chronic respiratory failure with hypercapnia (2) Asthma-COPD overlap syndrome: Code(s): J44.9 - Chronic obstructive pulmonary disease, unspecified (3) Dyspnea: Code(s): R06.00 - Dyspnea, unspecified Plan the patient has hypercarbic respiratory failure with an elevated CO2. The patient carries a poor prognosis and high risk for rehospitalization. The patient needs to start a noninvasive ventilator in order to improve gas exchange, improved prognosis and decrease hospitalizations. Will work with the local DME company in order for her to start on a noninvasive ventilator at this time. ECHO CT chest to address her shortness of breath and chest pain. CXR was non diagnostic Prednisone 10mg with slow taper off diursesis as tolerated Pepcid QHS reflux diet continue Trelegy daily KIMBERLY as needed Continue nebulized therapy Oxygen supplementation, okay to increase to 3 L/pulse to maintain a pulse ox above 90%. She is still waiting for her POC to get fixed by her DME, Richard. Continue Singulair PPI F/U 3-4 weeks Medications: New prednisone 10 mg (2 x 5 mg) PO DAILY 30 days 60 tabs 11RF Discontinued lidocaine 5% leave on most painful area for up to 12 hrs 1 patch topical DAILY 30 days 30 ea 4RF B02.29 - Other postherpetic nervous system involvement prednisone PO daily; Take 2 tabs daily x 5 days, then 1 tablet daily x 5 days 10 days 15 tabs 0RF Coding Level of Care Code Est Pt Level 5 (11149) Diagnoses Chronic respiratory failure J96.11; J96.12 Respiratory failure complication: hypoxia and hypercapnia Asthma-COPD overlap syndrome J44.9 Dyspnea R06.00 Time Spent (min) 45
== END 2023-01-08 10:21 | disposition home or self-care (01) ==
PROVIDERS: PCP Internal Medicine; Visit Provider Hospitalist
DX: J96.11 Chronic respiratory failure with hypoxia (principal); J96.12 Chronic respiratory failure with hypercapnia; J44.9 Chronic obstructive pulmonary disease, unspecified
CPT/HCPCS: 99215

== ENCOUNTER → 2023-01-08 09:39 | Outpatient (BNVA) | payer MEDICARE, MEDICAID, SELFPAY | PROVIDERS: PCP Internal Medicine; Visit Provider Hospitalist | DX: J96.11 Chronic respiratory failure with hypoxia (principal); J96.12 Chronic respiratory failure with hypercapnia; J44.9 Chronic obstructive pulmonary disease, unspecified | CPT/HCPCS: 99212 ==

== ENCOUNTER 2023-01-10 09:41 | Outpatient (REF) | payer MEDICARE, MEDICAID, SELFPAY ==
--- NOTE | ~2023-01-10 | CT_ITS ---
EXAMINATION: CT CHEST WITHOUT CONTRAST CLINICAL INFORMATION: Chronic respiratory failure COMPARISON: Previous chest x-rays most recent November 2022 TECHNIQUE: Multidetector volumetric CT imaging of the chest was done. Axial MIP volume rendering provided. Sagittal and coronal reformatted images were obtained. This CT examination was performed using dose optimization techniques as appropriate, variously including the following: *Automated exposure control *Adjustment of mA and/or kV according to patient size (this includes techniques or standardized protocols for targeted exams where dose is matched to indication/reason for exam; i.e. extremities or head) *Use of iterative reconstruction technique DLP: 275 mGy-cm FINDINGS: LUNGS: Heterogeneous attenuation in the lungs. 3 mm semisolid right upper lobe nodule axial image 155 series 5. 3 mm left lower lobe nodule axial image 344 series 5. Scattered areas of subsegmental atelectasis or scarring in the lower lungs. This is new from previous chest x-ray and subsegmental atelectasis is favored. MEDIASTINUM: The heart is slightly enlarged. No pericardial effusion. No enlarged hilar or mediastinal lymph nodes. Normal caliber thoracic aorta. CORONARY ARTERY CALCIFICATION: Mild PLEURA: There is no pleural effusion. No pleural mass or thickening. AXILLA: No lymphadenopathy. UPPER ABDOMEN: Unremarkable. The gallbladder has been removed. Curvilinear round calcification in the left renal hilum questionable for small aneurysm. This measures 6 mm. This could be better evaluated with CTA. Diverticulosis.. OSSEOUS STRUCTURES: Degenerative changes of the spine. CT/CT chest wo IV con IMPRESSION: Heterogeneous attenuation in the lungs questionable for hypoventilatory changes or airways disease. Scattered areas of subsegmental atelectasis in the from previous chest x-ray. 2 small 3 mm pulmonary nodules or micronodules. According to the UPDATED 2017 Fleischner Society recommendations, the advised follow-up imaging for less than 6 mm solid nodule: Low risk, no chest CT follow-up and high risk, optional chest CT follow-up in one year. Slightly enlarged heart. Question small left renal artery aneurysm. This could be better evaluated with CTA. Fleischner guidelines were followed.
--- NOTE | 2023-01-10 10:23 | CA_ITS ---
Transthoracic Echocardiogram Patient (Last, First, Middle): Natalie Menon, Gender: Female Date of : 1960 Age: 62 Procedure Date: 01/10/2023 Procedure Type: Transthoracic Echocardiogram Location: OP Height: 147.32 cm Weight: 90.72 kg BSA: 1.82 m2 Heart Rate: bpm BP: 122 / 80 mmHg Retail Visual Merchandiser: Referring MD: Sarkis Reynoso MD Tripoler: Dago Mcintosh MD Symptoms: R06.00 - Dyspnea, unspecified, assess Pul monary hypertension Study Quality: Technically Difficult ECG Rhythm: Sinus Conclusions: - 1. Normal LV ejection fraction at 55-60% with mild LVH with impaired relaxation filling pattern elevated filling pressures 2. Mildly dilated left atrium 3. Limited visitation cardiac valves with normal cardiac valvular Dopplers 4. Normal RV systolic pressure 5. No gross pericardial effusion Findings Procedure Information Contrast agent, definity, is being given per protocol without apparent complications. Left Ventricle Normal left ventricular size and systolic function. There is mildly increased left ventricular wall thickness. The visually estimated ejection fraction is between 55-60%. Spectral Doppler is indicative of an impaired relaxation filling pattern. Elevated filling pressures. E/E prime ratio is >15, consistent with elevated filling pressures. Right Ventricle The right ventricle was not well visualized. Atria The left atrium is mildly dilated. Interatrial shunt cannot be excluded. The right atrium was not well visualized. Aortic Valve The aortic valve was not well visualized. There is no aortic valve stenosis. There is no aortic valve regurgitation. Mitral Valve The mitral valve was not well visualized. There is trace mitral valve regurgitation. There is no mitral valve stenosis. Pulmonic Valve The pulmonic valve was not well visualized. Tricuspid Valve Likely normal tricuspid valve structure and function. There is mild tricuspid valve regurgitation. The right ventricular systolic pressure is normal. The right ventricular systolic pressure is 32 mmHg. Normal right atrial pressure. There is no evidence of pulmonary hypertension. Great Vessels All visible segments of the aorta are normal in size. The pulmonary artery was not well visualized. Venous The inferior vena cava is normal in size and collapses greater than 50% with inspiration. Pericardium/Pleural The pericardium was not well visualized. Prior Study Comparison No prior study available for comparison. Measurements 2D Linear Measurements IVSd: 1.22 0.6-0.9/0.6-1.0 cm LVIDd: 3.98 3.9-5.3/4.2-5.9 cm LVIDd Index: 2.19 2.4-3.2/2.2-3.1 cm/m2 LVIDs: 2.44 2.0-3.6 cm LVPWd: 1.23 0.7-1.1 cm Ao Root: 3.00 2.1-3.5 cm LA Diam: 3.40 2.7-3.8/3.0-4.0 cm LAIDs Index: 1.87 1.5-2.3 cm/m2 LV Mass: 210.92 67-162/88-224 g LV Mass Index: 115.89 43-95/49-115 g/m2 LVOT Diam: 1.90 3.0+(-)1.3 cm Mitral Valve MV VTI: 0.38 MV Pk Earle: 2.04 MV Mn Earle: 1.19 MV Pk Grad: 17.00 MV Mn Grad: 7.00 MV Pk E: 1.10 MV PK A: 1.49 MV Decel Time: 104.00 E/A: 0.70 E'Lateral: 5.66 E'Medial: 4.90 E/E' Med: 22.40 E/E' Lat: 19.40 PHT: 30.00 MVA PHT: 7.33 MVA Continuity: 1.39 Decel Venango: 10.57 Aortic Valve AoV Pk Earle: 1.89 AoV Mn Earle: 1.20 AoV VTI: 0.36 AoV Pk Grad: 14.00 Aov Mn Grad: 7.00 CRAIG Cont.VTI: 1.44 LVOT LVOT Pk Earle: 0.91 LVOT Mn Earle: 0.70 LVOT VTI: 0.19 LVOT Pk Grad: 3.00 LVOT Mn Grad: 2.00 LVOT Diam: 1.90 LVOT Area: 2.84 Diastolic Function MV Pk E: 1.10 MV Pk A: 1.49 E/A: 0.70 E'Medial: 4.90 E/E' Med: 22.40 E' Laterial: 5.66 E/E' Lat: 19.40 Right Ventricle TAPSE (mm): 21.00 Tricuspid Valve TR Pk Earle: 2.71 TR Pk Grad: 29.00 RA Press: 3.00 RVSP: 32.00 Great Vessels Aorta Ao Root-2D: 3.00 2.0-3.7 cm Ao Asc: 3.40 2.1-3.4 cm Pulmonary Valve PV Pk Earle: 1.09 Peak PV Grad: 5.00 Updated in Other Vendor System with Status of Final Dago Mcintosh MD electronically signed on 01/11/2023 2:53:15 PM with status of Final
== END 2023-01-10 09:42 | disposition home or self-care (01) ==
LOC: HO.CT 09:41
PROVIDERS: PCP Internal Medicine; Visit Provider Hospitalist
DX: J96.10 Chronic respiratory failure, unspecified whether with hypoxia or hypercapnia (principal); I27.20 Pulmonary hypertension, unspecified
CPT/HCPCS: 71250; 93306; Q9957

== ENCOUNTER → 2023-01-10 10:23 | Outpatient (BNV) | payer MEDICARE, MEDICAID, SELFPAY | PROVIDERS: PCP Internal Medicine; Visit Provider Internal Medicine Cardiovascular Disease | DX: J96.10 Chronic respiratory failure, unspecified whether with hypoxia or hypercapnia (principal) | CPT/HCPCS: 93306 ==

== ENCOUNTER 2023-04-25 13:07 | Outpatient (AMB) | payer MEDICARE, MEDICAID, SELFPAY ==
[2023-04-25 13:25] VITALS: BP 118/68; PULSE 72; O2SAT 98
--- NOTE | 2023-04-25 13:25 | A.OFFVIS_ITS ---
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 She continues use the noninvasive ventilator with very good effect. She does use it every night. She has been getting supplies through her [employer] company, [employer]. She continues use her respiratory medications of the recently she ran out and she started to develop increasing chest tightness and shortness of breath. Therefore I will make sure to send her all medications to the pharmacy. She complains of dyspnea on exertion [id number] severity. She does get relief from the oxygen. Otherwise patient is without any new complaints. Hopefully, will have her come in during the next visit so we can do a proper examination and also plan for additional laboratory, breathing andimaging studies. 07/30/2022 the patient is here for sick v isit. The patient had developed COVID-1 9 and did take packs loaded. However, her respiratory symptoms worsened significantly after worse. She feels that she is dying. She complains of significant chest tightness and shortness of breath. Has a hard time breathing even with the oxygen. Over the weekend the patient is having hard time so she was taken to the [facility] ED. There she apparently underwent a CT scan of the chest ruling out PE and also pneumonia. She had blood work which was all reassuring per report. She was given a course of prednisone and was given azithromycin I believe. The patient however has not been able to feel better. She still getting yellow sputum. She is still congested and feel has the significant shortness of breath. Initially on exam the patient is having wheezing although very diminished. She received 3 ampules of Xopenex 1.25 mg via nebulizer and open in her airways nicely although it demonstrated increased wheezing. Therefore the patient receive Solu-Medrol 125 mg IM x1. She was sent additional at prednisone to the pharmacy. In the meantime she did have postnasal drip with purulent secretions coming up from the sinuses so therefore she has sinusitis and I am going to send her Levaquin for that. Will also provide with cough medication at this time. The patient is to stay hydrated and hopefully she can starts feel better. If however symptoms worsening then she may have to go back to the ER for failing outpatient therapy. 10/21/2022 the patient is here for pulmon kelly follow-up visit. She is going to be well. Complains of shortness of breath with minimal activity. Complaints of chest tightness and wheezing. She completed the prednisone and antibiotics without any significant improvement. She has been using the nebulizer every 2 hours because of the shortness of breath. We did review her chest x-ray demonstrating some perihilar congestion and she is having some lower extremity edema. Therefore, will go ahead and put on some Lasix to try to help with volume status. I am hopeful that that will help with her breathing. In addition to that the patient is using her oxygen. She completed the prednisone. Will try to minimize her use of prednisone but she can go down to a maintenance dose of 5 mg daily. I will send a few more just in case she has a worsening episode. The patient needs to undergo an echocardiogram. She also has had having reflux issues. She is wondering if that could be activating her asthma. She was set up with a surgeon in the past for a fundoplication. Will have her undergo a barium swallow. In view of her chest pains and the x-ray demonstrating some minimal changes will go ahead and request a CT scan of the chest. She did have a negative D-dimer so she does not need contrast. 01/08/2023 the patient is here for a hosp ital follow-up visit. She was admitted to the hospital with acute COPD exacerbation and also respiratory failure. The patient required additional oxygen. She had an x-ray demonstrating pneumonitis. Her BMP was normal. She is waiting for an echocardiogram. She is also scheduled for CT scan of the chest. In the meantime we did review her blood work and her blood gas demonstrated a pCO2 greater than 60. This suggest chronic hypercarbic respiratory failure secondary to her COPD. The patient has had a noninvasive ventilator in the past. But her condition had improved and was able to be discontinued. Then after COVID-19 her respiratory status has been worsening and now looks like she requires the noninvasive ventilator again. The patient has hypercarbic respiratory failure due to her COPD and likely has the increased risk for rehospitalization and a poor prognosis. A noninvasive ventilator will provide her better gas exchange improve her prognosis and decrease hospitalizations. Will work with the local [employer] company in order to get her back on a noninvasive ventilator per in the meantime the patient is start pulmonary rehab. She is a currently homebound and getting VNA services at home. She can start doing online pulmonary rehab at this time. She is weaning off the prednisone. Clinically the patient is feeling better.\ 04/25/2023 the patient is here for [facility]. She was hospitalized a few times. The last time she required BiPAP but she had a hard time tolerating it. The patient has been struggling with her breathing still. Has a hard time breathing. She is not responding to her respiratory medications. She does not tolerate the Trelegy because the powder irritates her throat. Therefore will switch her to breast treat inhaler. She also has a nebulizer medicine. She has also been describing increasing tachycardia and difficult to tolerate the albuterol. Therefore, I will send her Xopenex HFA to see if this provides will better relief with last adverse effects. The patient also has been having difficulties with daytime drowsiness. She does have the noninvasive ventilator that she should be using at nighttime. But is still having some daytime drowsiness. Likely also could be post COVID syndrome since she had COVID back few months ago. I believe at this point modafinil may be a good option as a stimulant to keep her awake during the daytime improve her sleep-wake cycle. The patient also has been in the hospital and has been on high doses of steroids and appears to be volume overloaded. Will go ahead and diurese her for few days. She is now participating with VNA at home with physical therapy and occupational therapy. When she gets better will plan to do PFTs and also consider outpatient pulmonary rehabilitation. The patient is very debilitated. Very difficult for her to Mobic us the pain and shortness of breath. Her family has been putting over time to try to help her even going from the bed to a bedside commode. At this point the patient needs additional help with her activities daily living. She does have a LINEN AIDE and likely needs additional hours with all her ADL needs. [facility] Medical History (Updated 04/28/23 @ 08:23 by Sarkis Reynoso MD) PAYAL (obstructive sleep apnea) Allergies Dyspnea Pleuritic chest pain COVID-19 Hypothyroidism Hypertension Asthma Chronic respiratory failure Asthma-COPD overlap syndrome Social History Household Members: Significant Other Household Members Other:: 1 Housing: House Do you presently have visiting nurse or other home services: No Patient Tobacco Use Status: Never used Tobacco Second Hand Smoke Exposure: No Substance Use Type: Marijuana Advance Directives Date on File: 01/25/22 service: No Current occupational status: unemployed and disabled Review of Systems Const Reports fatigue, Reports malaise and Denies night sweats ENT Denies change in voice, Reports dizziness, Denies lip swelling, Denies mouth pain, Reports nasal congestion, Reports nasal discharge and Denies tongue swelling Card Denies chest pain, Reports leg edema, Denies dyspnea and Reports dyspnea on exertion Resp Denies change in phlegm color, Reports chest congestion, Reports cough, Denies hemoptysis, Denies pain on inspiration, Denies pain with cough, Denies dyspnea, Reports dyspnea on exertion and Reports wheezing GI Denies abdominal pain, Reports dyspepsia and Reports heartburn Musc Denies no additional complaints, Reports abnormal gait, Reports back pain, Reports myalgias, Reports arthralgias and Reports muscle weakness Skin/Breast Denies rash Neuro Denies Neuro-related abnormal movements, Reports abnormal gait and Reports dizziness Psych Denies no additional complaints Endo Reports fatigue Andi/Lymph Denies easy bleeding and Denies lymphadenopathy Aller/Immun Denies lip swelling, Denies tongue swelling and Reports wheezing Physical Exam Vital Signs: Last Vital Signs Pulse 72 04/25/23 13:25 BP 118/68 04/25/23 13:25 Pulse Ox 98 04/25/23 13:25 Oxygen Delivery Method Nasal Cannula 04/25/23 13:25 Oxygen Flow Rate 3 04/25/23 13:25 Const General: alert Neck Neck: Yes normal visual inspection, Yes full ROM and Yes no lymphadenopathy Chest Chest palpation & inspection: tenderness pectoral muscle, sternum and costochondral junction Resp Effort & Inspection: tachypneic Auscultation: no crackles, no rhonchi, no wheezes and diminished lung sounds Cardio Rate: regular rate Rhythm: regular rhythm Heart sounds: S1 normal heart sound present and S2 normal heart sound present GI Palpation (GI): Soft to palpation and nontender Auscultation: normal bowel sounds Skin General skin exam: rashes and/or lesions noted Extrem General: Yes edema Results Reviewed Results Reviewed: Reviewed CXR and labs with pt afterwards Assessment & Plan Assessment & Plan (1) Bronchopneumonia: Code(s): J18.0 - Bronchopneumonia, unspecified organism (2) Asthma: Code(s): J45.909 - Unspecified asthma, uncomplicated Qualifiers: Asthma complication type: uncomplicated Asthma persistence: persistent Asthma severity: moderate Qualified Code(s): J45.40 - Moderate persistent asthma, uncomplicated (3) Allergies: Code(s): T78.40XA - Allergy, unspecified, initial encounter Qualifiers: Encounter type: sequela Qualified Code(s): T78.40XS - Allergy, unspecified, sequela (4) Chronic respiratory failure: Code(s): J96.10 - Chronic respiratory failure, unspecified whether with hypoxia or hypercapnia Qualifiers: Respiratory failure complication: hypoxia and hypercapnia Qualified Code(s): J96.11 - Chronic respiratory failure with hypoxia; J96.12 - Chronic respiratory failure with hypercapnia (5) Asthma-COPD overlap syndrome: Code(s): J44.9 - Chronic obstructive pulmonary disease, unspecified (6) Dyspnea: Code(s): R06.00 - Dyspnea, unspecified Qualifiers: Dyspnea type: shortness of breath Qualified Code(s): R06.02 - Shortness of breath (7) PAYAL (obstructive sleep apnea): Code(s): G47.33 - Obstructive sleep apnea (adult) (pediatric) Plan Needs to use the NIV, will send [employer] to assess Prednisone 10mg with slow taper off Bloodwork, would benefit from Tezspire diursesis as tolerated Pepcid QHS reflux diet stop Trelegy, start Breztri KIMBERLY as needed Continue nebulized therapy Oxygen supplementation, okay to increase to 3 L/pulse to maintain a pulse ox above 90%. She is still waiting for her POC to get fixed by her DME, Richard. Continue Singulair PPI Needs addtional help with ADLs start Modafinil F/U 3-4 weeks Orders: Orders Venous Blood Gas 04/25/23 J18.0 - Bronchopneumonia, unspecified organism, J45.909 - Unspecified asthma, uncomplicated, T78.40XA - Allergy, unspecified, initial encounter CANDIDO Reflex Titer and Pattern 04/25/23 J18.0 - Bronchopneumonia, unspecified organism, J45.909 - Unspecified asthma, uncomplicated, T78.40XA - Allergy, unspecified, initial encounter Rast Allergen 04/25/23 J18.0 - Bronchopneumonia, unspecified organism, J45.909 - Unspecified asthma, uncomplicated, T78.40XA - Allergy, unspecified, initial encounter Immunoglobulins,IgG IgA IgM 04/25/23 J18.0 - Bronchopneumonia, unspecified organism, J45.909 - Unspecified asthma, uncomplicated, T78.40XA - Allergy, unspecified, initial encounter Immunoglobulin E 04/25/23 J18.0 - Bronchopneumonia, unspecified organism, J45.9 09 - Unspecified asthma, uncomplicated, T78.40XA - Allergy, unspecified, initial encounter Complete Blood Count Auto Diff 04/25/23 J18.0 - Bronchopneumonia, unspecified organism, J45.909 - Unspecified asthma, uncomplicated, T78.40XA - Allergy, unspecified, initial encounter Basic Metabolic Panel 04/25/23 J18.0 - Bronchopneumonia, unspecified organism, J45.909 - Unspecified asthma, uncomplicated, T78.40XA - Allergy, unspecified, initial encounter Erythrocyte Sedimentation Rate 04/25/23 J18.0 - Bronchopneumonia, unspecified organism, J45.909 - Unspecified asthma, uncomplicated, T78.40XA - Allergy, unspecified, initial encounter Cyclic Citrullinated Peptide 04/25/23 J18.0 - Bronchopneumonia, unspecified organism, J45.909 - Unspecified asthma, uncomplicated, T78.40XA - Allergy, unspecified, initial encounter Medications: New modafinil 100 mg PO DAILY 30 days 30 tabs 3RF pyjovsnhgi-gjyjzowk-rhtpxqnxku 160-9-4.8 mcg/actuation (Breztri Aerosphere) 2 inhalations inhalation BID 30 days 10.7 grams 11RF levalbuterol tartrate 45 mcg/actuation (Xopenex HFA) 2 puffs inhalation Q6H 30 days PRN 15 grams 11RF shortness of breath or wheezing J45.909 - Unspecified asthma, uncomplicated Refilled ipratropium-albuterol 0.5 mg-3 mg(2.5 mg base)/3 mL 3 mL inhalation QID 30 days 360 mL 11RF Coding Level of Care Code Est Pt Level 5 (49769) Diagnoses Bronchopneumonia J18.0 Moderate persistent asthma without complication J45.40 Asthma complication type: uncomplicated Asthma persistence: persistent Asthma severity: moderate Allergy, sequela T78.40XS Encounter type: sequela Chronic respiratory failure with hypoxia and hypercapnia J96.11; J96.12 Respiratory failure complication: hypoxia and hypercapnia Asthma-COPD overlap syndrome J44.9 Shortness of breath R06.02 Dyspnea type: shortness of breath PAYAL (obstructive sleep apnea) G47.33 Time Spent (min) 45
== END 2023-04-25 14:09 | disposition home or self-care (01) ==
PROVIDERS: PCP Internal Medicine; Visit Provider Hospitalist
DX: J18.0 Bronchopneumonia, unspecified organism (principal); J45.40 Moderate persistent asthma, uncomplicated; T78.40XS Allergy, unspecified, sequela; J96.11 Chronic respiratory failure with hypoxia; J96.12 Chronic respiratory failure with hypercapnia; G47.33 Obstructive sleep apnea (adult) (pediatric)
CPT/HCPCS: 99215

== ENCOUNTER 2023-04-25 13:07 | Outpatient (REF) | payer MEDICARE, MEDICAID, SELFPAY ==
[2023-04-25 14:47] LABS: MANUAL DIFF FLAG NO
[2023-04-25 14:53] LABS: Basophils Absolute Auto 0.1 X10*3/uL (0.0-0.2); Basophils Percent Auto 0.5 % (0-2); Eosinophils Percent Auto 0.2 % (0-4); Hematocrit 35.8 % (37.0-47.0); Hemoglobin 11.1 g/dl (12.0-16.0); Imm Gran Abs Auto 0.34 X10*3/uL (0.00-0.03); Lymphocytes Percent Auto 5.6 % (20-40); Mean Corpuscular Hemoglobin 30.2 pg (27.0-33.0); Mean Corpuscular Volume 97.5 fL (80.0-98.0); Mean Platelet Volume 10.6 fL (9.4-12.3); Monocytes Absolute Auto 0.8 X10*3/uL (0.1-1.2); Monocytes Percent Auto 4.7 % (2-11); NRBC Pct Auto 0.2 /100WBC (0.0-0.2); Neutrophils Absolute Auto 14.9 x10*3/uL (2.0-8.3); Platelet Count 231 X10*3/uL (160-400); Red Blood Count 3.67 X10*6/uL (4.20-5.50); Red Cell Distribution Width 14.8 % (11.0-16.0); White Blood Count 17.1 X10*3/uL (4.8-10.8)
[2023-04-25 15:06] LABS: VBG pCO2 52 mmHg; VBG pH 7.56 (7.32-7.43)
[2023-04-25 15:07] LABS: VBG Base Excess 21.4 mmol/L; VBG HCO3 46 mmol/L (22-26); VBG pO2 93 mmHg; Venous Blood Gas Refer to POC result
[2023-04-25 15:10] LABS: Alanine Aminotransferase 95 U/L (0-31); Albumin Level 3.8 g/dL (3.5-5.0); Alkaline Phosphatase 80 U/L (39-117); Anion Gap 14 (12-20); Aspartate Amino Transferase 26 U/L (5-31); Bilirubin Direct 0.1 mg/dL (0.0-0.5); Bilirubin Total 0.3 mg/dL (0.0-1.0); Blood Urea Nitrogen 20 mg/dL (9-16); Calcium 8.9 mg/dL (8.4-10.2); Carbon Dioxide 37 mmol/L (22-29); Chloride 96 mmol/L (96-108); Estimated Glomerular Filt Rate 58; Glucose Random 235 mg/dL (60-115); Potassium 5.1 mmol/L (3.3-5.1); Sodium 142 mmol/L (135-145); Total Protein 6.5 g/dL (6.5-8.0)
[2023-04-25 15:41] LABS: Erythrocyte Sedimentation Rate 16 MM/HR (0-20)
[2023-04-27 11:18] LABS: Cyclic Citrullinated Peptide <16 UNITS
[2023-04-28 15:44] LABS: IgA 129 mg/dL (70-320); IgG 783 mg/dL (600-1540); IgM 46 mg/dL (50-300)
[2023-04-28 19:24] LABS: Immunoglobulin E 22 kU/L (<OR=114)
[2023-04-30 14:00] LABS: Anti Nuclear Antibody Screen POSITIVE (NEGATIVE)
== END 2023-04-25 13:08 | disposition home or self-care (01) ==
LOC: HO.LAB 13:07
PROVIDERS: PCP Internal Medicine; Visit Provider Hospitalist
DX: J18.0 Bronchopneumonia, unspecified organism (principal); J44.9 Chronic obstructive pulmonary disease, unspecified; J45.40 Moderate persistent asthma, uncomplicated; J96.11 Chronic respiratory failure with hypoxia; J96.12 Chronic respiratory failure with hypercapnia; T78.40XS Allergy, unspecified, sequela; R40.0 Somnolence; G47.33 Obstructive sleep apnea (adult) (pediatric); Z79.899 Other long term (current) drug therapy
CPT/HCPCS: 36415; 80048; 80076; 82784; 82785; 82803; 85025; 85652; 86003; 86038; 86039; 86200; 99212

== ENCOUNTER 2023-06-06 14:43 | Outpatient (REF) | payer MEDICARE, MEDICAID, SELFPAY | END 2023-06-06 14:44 | disposition home or self-care (01) | LOC: HO.MDS 14:43 | PROVIDERS: PCP Internal Medicine; Visit Provider Hospitalist | DX: J45.50 Severe persistent asthma, uncomplicated (principal) | CPT/HCPCS: 96372 ==

== ENCOUNTER 2023-07-04 14:55 | Outpatient (REF) | payer MEDICARE, MEDICAID, SELFPAY | END 2023-07-04 14:56 | disposition home or self-care (01) | LOC: HO.MDS 14:55 | PROVIDERS: Visit Provider Hospitalist | DX: J45.50 Severe persistent asthma, uncomplicated (principal) | CPT/HCPCS: 96372; J2356 ==

== ENCOUNTER 2023-07-31 12:38 | Outpatient (REF) | payer MEDICARE, MEDICAID, SELFPAY | END 2023-07-31 12:39 | disposition home or self-care (01) | LOC: HO.MDS 12:38 | PROVIDERS: Visit Provider Hospitalist | DX: J45.50 Severe persistent asthma, uncomplicated (principal); R91.8 Other nonspecific abnormal finding of lung field | CPT/HCPCS: 96372; 99212 ==

== ENCOUNTER 2023-07-31 13:03 | Outpatient (AMB) | payer MEDICARE, MEDICAID, SELFPAY ==
[2023-07-31 13:48] VITALS: PULSE 80; O2SAT 95; BMI 50.2
--- NOTE | 2023-07-31 13:48 | A.OFFVIS_ITS ---
Intake Vital Signs 07/31/23 13:48 Height 4 ft 10 in Weight 240 lb BMI 50.2 Pulse 80 Pulse Source Pulse Oximeter Pulse Oximetry (%) 95 Oxygen Delivery Method Room Air Comment 2 Liters Oxygen([facility]) Intake Visit Reasons: COPD Allergies ampicillin Allergy (Severe, Uncoded 07/31/23 13:50) Rash and Hives naproxen Allergy (Severe, Uncoded 07/31/23 13:50) Rash and Hives slow bid Allergy (Severe, Uncoded 07/31/23 13:50) Rash and Hives tramadol Allergy (Severe, Uncoded 07/31/23 13:50) Rash and Hives HPI HPI Comments History of Present Illness Details The patient is a 63-year-old woman known asthma COPD overlap syndrome, chronic hypercarbic respiratory failure on a trilogy at night and also has oxygen during the daytime. She continues use the noninvasive ventilator with very good effect. She does use it every night. She has been getting supplies through her [employer] company, [employer]. She continues use her respiratory medications of the recently she ran out and she started to develop increasing chest tightness and shortness of breath. Therefore I will make sure to send her all medications to the pharmacy. She complains of dyspnea on exertion [id number] severity. She does get relief from the oxygen. Otherwise patient is without any new complaints. Hopefully, will have her come in during the next visit so we can do a proper examination and also plan for additional laboratory, breathing andimaging studies. 07/30/2022 the patient is here for [facility]. The patient had developed COVID- 19 and did take packs loaded. However, her respiratory symptoms worsened significantly after worse. She feels that she is dying. She complains of significant chest tightness and shortness of breath. Has a hard time breathing even with the oxygen. Over the weekend the patient is having hard time so she was taken to the [facility] ED. There she apparently underwent a CT scan of the chest ruling out PE and also pneumonia. She had blood work which was all reassuring per report. She was given a course of prednisone and was given azithromycin I believe. The patient however has not been able to feel better. She still getting yellow sputum. She is still congested and feel has the significant shortness of breath. Initially on exam the patient is having wheezing although very diminished. She received 3 ampules of Xopenex 1.25 mg via nebulizer and open in her airways nicely although it demonstrated increased wheezing. Therefore the patient receive Solu-Medrol 125 mg IM x1. She was sent additional at prednisone to the pharmacy. In the meantime she did have postnasal drip with purulent secretions coming up from the sinuses so therefore she has sinusitis and I am going to send her Levaquin for that. Will also provide with cough medication at this time. The patient is to stay hydrated and hopefully she can starts feel better. If however symptoms worsening then she may have to go back to the ER for failing outpatient therapy. 10/21/2022 the patient is here for pulmon kelly follow-up visit. She is going to be well. Complains of shortness of breath with minimal activity. Complaints of chest tightness and wheezing. She completed the prednisone and antibiotics without any significant improvement. She has been using the nebulizer every 2 hours because of the shortness of breath. We did review her chest x-ray demonstrating some perihilar congestion and she is having some lower extremity edema. Therefore, will go ahead and put on some Lasix to try to help with volume status. I am hopeful that that will help with her breathing. In addition to that the patient is using her oxygen. She completed the prednisone. Will try to minimize her use of prednisone but she can go down to a maintenance dose of 5 mg daily. I will send a few more just in case she has a worsening episode. The patient needs to undergo an echocardiogram. She also has had having reflux issues. She is wondering if that could be activating her asthma. She was set up with a surgeon in the past for a fundoplication. Will have her undergo a barium swallow. In view of her chest pains and the x-ray demonstrating some minimal changes will go ahead and request a CT scan of the chest. She did have a negative D-dimer so she does not need contrast. 01/08/2023 the patient is here for a hosp ital follow-up visit. She was admitted to the hospital with acute COPD exacerbation and also respiratory failure. The patient required additional oxygen. She had an x-ray demonstrating pneumonitis. Her BMP was normal. She is waiting for an echocardiogram. She is also scheduled for CT scan of the chest. In the meantime we did review her blood wor k and her blood gas demonstrated a pCO2 greater than 60. This suggest chronic hypercarbic respiratory failure secondary to her COPD. The patient has had a noninvasive ventilator in the past. But her condition had improved and was able to be discontinued. Then after COVID-19 her respiratory status has been worsening and now looks like she requires the noninvasive ventilator again. The patient has hypercarbic respiratory failure due to her COPD and likely has the increased risk for rehospitalization and a poor prognosis. A noninvasive ventilator will provide her better gas exchange improve her prognosis and decrease hospitalizations. Will work with the local [employer] company in order to get her back on a noninvasive ventilator per in the meantime the patient is start pulmonary rehab. She is a currently homebound and getting VNA services at home. She can start doing online pulmonary rehab at this time. She is weaning off the prednisone. Clinically the patient is feeling better.\ 04/25/2023 the patient is here for [facility] follow-up visit. She was hospitalized a few times. The last time she required BiPAP but she had a hard time tolerating it. The patient has been struggling with her breathing still. Has a hard time breathing. She is not responding to her respiratory medications. She does not tolerate the Trelegy because the powder irritates her throat. Therefore will switch her to breast treat inhaler. She also has a nebulizer medicine. She has also been describing increasing tachycardia and difficult to tolerate the albuterol. Therefore, I will send her Xopenex HFA to see if this provides will better relief with last adverse effects. The patient also has been having difficulties with daytime drowsiness. She does have the noninvasive ventilator that she should be using at nighttime. But is still having some daytime drowsiness. Likely also could be post COVID syndrome since she had COVID back few months ago. I believe at this point modafinil may be a good option as a stimulant to keep her awake during the daytime improve her sleep-wake cycle. The patient also has been in the hospital and has been on high doses of steroids and appears to be volume overloaded. Will go ahead and diurese her for few days. She is now participating with VNA at home with physical therapy and occupational therapy. When she gets better will plan to do PFTs and also consider outpatient pulmonary rehabilitation. The patient is very debilitated. Very difficult for her to Mobic us the pain and shortness of breath. Her family has been putting over time to try to help her even going from the bed to a bedside commode. At this point the patient needs additional help with her activities daily living. She does have a [employer] and likely needs additional hours with all her ADL needs. 07/31/2023 the patient is here for hospital follow-up visit. She was hospitalized at [facility] with acute on chronic respiratory failure and COPD exacerbation. She was in a hospital former 7-8 days. While she was in a hospital she was diagnosed with diabetes because of the prednisone use. She continues to be on 10 mg of prednisone. She also started Tezspire. She is received now the 3rd dose. She has not seen any significant improvement from the biologic therapy just yet. I did recommend she can continue for least 6 months to see if this is worthwhile medication for her. In the meantime I am going to send a 5 mg of prednisone in order for to be able to cut down to 7.5 mg daily And hopefully down to 5 mg daily. After that will probably have to get her to 1 mg tablets and decrease her further very slowly since she has been on the prednisone for such a long time. Need to monitor closely for any adrenal insufficiency. She continues use her respiratory therapy. She is feeling again some chest congestion. And also complains of hoarseness. I did visualize significant purulent secretions primarily from the posterior pharynx likely component of sinusitis. Therefore will going to start her on some doxycycline. Also provide her with sputum cup in order to get a culture. [facility] Medical History (Updated 07/31/23 @ 21:13 by Sarkis Reynoso MD) Pulmonary nodules PAYAL (obstructive sleep apnea) Allergies Dyspnea Pleuritic chest pain COVID-19 Hypothyroidism Hypertension Asthma Chronic respiratory failure Asthma-COPD overlap syndrome Social History Household Members: Significant Other Household Members Other:: 1 Housing: House Do you presently have visiting nurse or other home services: No Patient Tobacco Use Status: Never used Tobacco Second Hand Smoke Exposure: No Substance Use Type: Marijuana Advance Directives Date on File: 01/25/22 service: No Current occupational status: unemployed and disabled Review of Systems Const Reports fatigue, Reports malaise and Denies night sweats ENT Denies change in voice, Reports dizziness, Reports hoarseness, Denies lip swelling, Denies mouth pain, Reports nasal congestion, Reports nasal discharge, Reports post nasal drip and Denies tongue swelling Card Denies chest pain, Reports leg edema, Denies dyspnea and Reports dyspnea on exertion Resp Denies change in phlegm color, Reports chest congestion, Reports cough, Denies hemoptysis, Denies pain on inspiration, Denies pain with cough, Denies dyspnea, Reports dyspnea on exertion and Reports wheezing GI Denies abdominal pain, Reports dyspepsia and Reports heartburn Musc Denies no additional complaints, Reports abnormal gait, Reports back pain, Reports myalgias, Reports arthralgias and Reports muscle weakness Skin/Breast Denies rash Neuro Denies Neuro-related abnormal movements, Reports abnormal gait and Reports dizziness Psych Denies no additional complaints Endo Reports fatigue Andi/Lymph Denies easy bleeding and Denies lymphadenopathy Aller/Immun Denies lip swelling, Denies tongue swelling and Reports wheezing Physical Exam Vital Signs: Last Vital Signs Pulse 80 07/31/23 13:48 Pulse Ox 95 07/31/23 13:48 Oxygen Delivery Method Room Air 07/31/23 13:48 BMI result Body Mass Index 50.2 Const General: alert HEENT Throat: Yes postnasal drainage Neck Neck: Yes normal visual inspection, Yes full ROM and Yes no lymphadenopathy Chest Chest palpation & inspection: tenderness pectoral muscle, sternum and costochondral junction Resp Effort & Inspection: normal respiratory effort Auscultation: no crackles, no rhonchi, no wheezes and diminished lung sounds Cardio Rate: regular rate Rhythm: regular rhythm Heart sounds: S1 normal heart sound present and S2 normal heart sound present GI Palpation (GI): Soft to palpation and nontender Auscultation: normal bowel sounds Skin General skin exam: rashes and/or lesions noted Extrem General: Yes edema Results Reviewed Results Reviewed: personally reviewed CT chest 01/19-small pulmonary nodules 2-3 mm Assessment & Plan Assessment & Plan (1) Asthma: Code(s): J45.909 - Unspecified asthma, uncomplicated Qualifiers: Asthma complication type: uncomplicated Asthma persistence: persistent Asthma severity: moderate Qualified Code(s): J45.40 - Moderate persistent asthma, uncomplicated (2) Allergies: Code(s): T78.40XA - Allergy, unspecified, initial encounter Qualifiers: Encounter type: sequela Qualified Code(s): T78.40XS - Allergy, unspecified, sequela (3) Chronic respiratory failure: Code(s): J96.10 - Chronic respiratory failure, unspecified whether with hypoxia or hypercapnia Qualifiers: Respiratory failure complication: hypoxia and hypercapnia Qualified Code(s): J96.11 - Chronic respiratory failure with hypoxia; J96.12 - Chronic respiratory failure with hypercapnia (4) Asthma-COPD overlap syndrome: Code(s): J44.9 - Chronic obstructive pulmonary disease, unspecified (5) Dyspnea: Code(s): R06.00 - Dyspnea, unspecified Qualifiers: Dyspnea type: shortness of breath Qualified Code(s): R06.02 - Shortness of breath (6) PAYAL (obstructive sleep apnea): Code(s): G47.33 - Obstructive sleep apnea (adult) (pediatric) (7) Sinusitis: Code(s): J32.9 - Chronic sinusitis, unspecified Qualifiers: Sinusitis location: unspecified location Chronicity: subacute Qualified Code(s): J01.90 - Acute sinusitis, unspecified (8) Pulmonary nodules: Code(s): R91.8 - Other nonspecific abnormal finding of lung field Plan start Doxycycline sputum culture if no better continue NIV, will send [employer] to assess Prednisone 10mg with slow taper off slowly continue Tezspire diursesis as tolerated Pepcid QHS reflux diet cotinue Breztri KIMBERLY as needed Continue nebulized therapy Oxygen supplementation, okay to increase to 3 L/pulse to maintain a pulse ox above 90%. She is still waiting for her POC to get fixed by her DME, Richard. Continue Singulair PPI stopped Modafinil F/U 3-4 weeks Orders: Orders Sputum Cult + Gram stain Today J18.0 - Bronchopneumonia, unspecified organism Medications: New doxycycline monohydrate 100 mg PO BID 14 days 28 tabs 0RF codeine-guaifenesin 10-100 mg/5 mL 10 mL PO Q6H 10 days PRN 300 mL 0RF cough fluticasone propionate 50 mcg/actuation 2 sprays intranasal DAILY 30 days 16 grams 9RF fluconazole 100 mg PO DAILY 14 days 14 tabs 0RF Refilled famotidine 40 mg PO BEDTIME 90 tabs 0RF Coding Level of Care Code Est Pt Level 5 (93858) Diagnoses Moderate persistent asthma without complication J45.40 Asthma complication type: uncomplicated Asthma persistence: persistent Asthma severity: moderate Allergy, sequela T78.40XS Encounter type: sequela Chronic respiratory failure with hypoxia and hypercapnia J96.11; J96.12 Respiratory failure complication: hypoxia and hypercapnia Asthma-COPD overlap syndrome J44.9 Shortness of breath R06.02 Dyspnea type: shortness of breath PAYAL (obstructive sleep apnea) G47.33 Subacute sinusitis, unspecified location J01.90 Sinusitis location: unspecified location Chronicity: subacute Pulmonary nodules R91.8 Time Spent (min) 45
== END 2023-07-31 14:18 | disposition home or self-care (01) ==
PROVIDERS: PCP Internal Medicine; Visit Provider Hospitalist
DX: J44.1 Chronic obstructive pulmonary disease with (acute) exacerbation (principal); J96.11 Chronic respiratory failure with hypoxia; J96.12 Chronic respiratory failure with hypercapnia; G47.33 Obstructive sleep apnea (adult) (pediatric); J01.90 Acute sinusitis, unspecified; R91.8 Other nonspecific abnormal finding of lung field
CPT/HCPCS: 99215

== ENCOUNTER 2023-09-11 10:24 | Outpatient (AMB) | payer MEDICARE, MEDICAID, SELFPAY ==
--- NOTE | 2023-09-11 10:24 | A.OFFVIS_ITS ---
Intake Vital Signs 09/11/23 10:25 Height 4 ft 10 in Weight 240 lb BMI 50.2 Intake Visit Reasons: COPD/Hosp [facility] Health Program Manager Required: No Allergies ampicillin Allergy (Severe, Uncoded 09/11/23 10:25) Rash and Hives naproxen Allergy (Severe, Uncoded 09/11/23 10:25) Rash and Hives slow bid Allergy (Severe, Uncoded 09/11/23 10:25) Rash and Hives tramadol Allergy (Severe, Uncoded 09/11/23 10:25) Rash and Hives HPI HPI Comments History of Present Illness Details The patient is a 63-year-old woman known asthma COPD overlap syndrome, chronic hypercarbic respiratory failure on a trilogy at night and also has oxygen during the daytime. She continues use the noninvasive ventilator with very good effect. She does use it every night. She has been getting supplies through her [employer] company, [employer]. She continues use her respiratory medications of the recently she ran out and she started to develop increasing chest tightness and shortness of breath. Therefore I will make sure to send her all medications to the pharmacy. She complains of dyspnea on exertion [id number] severity. She does get relief from the oxygen. Otherwise patient is without any new complaints. Hopefully, will have her come in during the next visit so we can do a proper examination and also plan for additional laboratory, breathing andimaging studies. 04/25/2023 the patient is [facility]. She was hospitalized a few times. The last time she required BiPAP but she had a hard time tolerating it. The patient has been struggling with her breathing still. Has a hard time breathing. She is not responding to her respiratory medications. She does not tolerate the Trelegy because the powder irritates her throat. Therefore will switch her to breast treat inhaler. She also has a nebulizer medicine. She has also been describing increasing tachycardia and difficult to tolerate the albuterol. Therefore, I will send her Xopenex HFA to see if this provides will better relief with last adverse effects. The patient also has been having difficulties with daytime drowsiness. She does have the noninvasive ventilator that she should be using at nighttime. But is still having some daytime drowsiness. Likely also could be post COVID syndrome since she had COVID back few months ago. I believe at this point modafinil may be a good option as a stimulant to keep her awake during the daytime improve her sleep-wake cycle. The patient also has been in the hospital and has been on high doses of steroids and appears to be volume overloaded. Will go ahead and diurese her for few days. She is now participating with [facility] at home with physical therapy and occupational therapy. When she gets better will plan to do PFTs and also consider outpatient pulmonary rehabilitation. The patient is very debilitated. Very difficult for her to Mobic us the pain and shortness of breath. Her family has been putting over time to try to help her even going from the bed to a bedside commode. At this point the patient needs additional help with her activities daily living. 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 07/31/2023 the patient is here for hospital follow-up visit. She was hospitalized at [facility] with acute on chronic respiratory failure and COPD exacerbation. She was in a hospital former 7-8 days. While she was in a hospital she was diagnosed with diabetes because of the prednisone use. She continues to be on 10 mg of prednisone. She also started Tezspire. She is received now the 3rd dose. She has not seen any significant improvement from the biologic therapy just yet. I did recommend she can continue for least 6 months to see if this is worthwhile medication for her. In the meantime I am going to send a 5 mg of prednisone in order for to be able to cut down to 7.5 mg daily And hopefully down to 5 mg daily. After that will probably have to get her to 1 mg tablets and decrease her further very slowly since she has been on the prednisone for such a long time. Need to monitor closely for any adrenal insufficiency. She continues use her respiratory therapy. She is feeling again some chest congestion. And also complains of hoarseness. I did visualize significant purulent secretions primarily from the posterior pharynx likely component of sinusitis. Therefore will going to start her on some doxycycline. Also provide her with sputum cup in order to get a culture. 09/11/2023 the patient has a telehealth v isit today. She was recently hospitalized at [facility] and discharged. Therefore she is waiting for VNA services. She is going to be working with PT and OT and hopefully respiratory. While in the hospital she did require BiPAP. She has not been able to use her noninvasive ventilator. She can not tolerate the pressures. I did call her DME company, [employer] and I did send the script to decrease her pressure is hopefully she can not tolerated better. In addition to that her nebulizer broke after little more than a year of use. We did call the [employer] to see if they can swap out for functional nebulizer this time. She continues to be on 10 mg of prednisone. At this point she will require some degree of maintenance therapy. Hopefully we can get her down to 10 mg every other day. She continues on her other respiratory inhalers with good effect. The patient does have some significant daytime drowsiness. She did have a prescription for modafinil in the past but not sure if she did not take it. Therefore a recent pharmacy and she will try. I do believe that improving her sleep-wake cycle will help her with her respiratory drive as well. The patient also can try Daliresp specially if she tolerates modafinil in order to provide her with additional medications for chronic bronchitis and decrease her prednisone use. Will plan to follow-up in 2 months. [facility] Medical History (Updated 07/31/23 @ 21:13 by Sarkis Reynoso MD) Pulmonary nodules PAYAL (obstructive sleep apnea) Allergies Dyspnea Pleuritic chest pain COVID-19 Hypothyroidism Hypertension Asthma Chronic respiratory failure Asthma-COPD overlap syndrome Social History Household Members: Significant Other Household Members Other:: 1 Housing: House Do you presently have visiting nurse or other home services: No Patient Tobacco Use Status: Never used Tobacco Second Hand Smoke Exposure: No Substance Use Type: Marijuana Advance Directives Date on File: 01/25/22 service: No Current occupational status: unemployed and disabled Review of Systems Const Reports fatigue, Reports malaise and Denies night sweats ENT Denies change in voice, Reports dizziness, Reports hoarseness, Denies lip swelling, Denies mouth pain, Reports nasal congestion, Reports nasal discharge, Reports post nasal drip and Denies tongue swelling Card Denies chest pain, Reports leg edema, Denies dyspnea and Reports dyspnea on exertion Resp Denies change in phlegm color, Reports chest congestion, Reports cough, Denies hemoptysis, Denies pain on inspiration, Denies pain with cough, Denies dyspnea, Reports dyspnea on exertion and Reports wheezing GI Denies abdominal pain, Reports dyspepsia and Reports heartburn Musc Denies no additional complaints, Reports abnormal gait, Reports back pain, Reports myalgias, Reports arthralgias and Reports muscle weakness Skin/Breast Denies rash Neuro Denies Neuro-related abnormal movements, Reports abnormal gait and Reports dizziness Psych Denies no additional complaints Endo Reports fatigue Andi/Lymph Denies easy bleeding and Denies lymphadenopathy Aller/Immun Denies lip swelling, Denies tongue swelling and Reports wheezing Physical Exam Vital Signs: BMI result Body Mass Index 50.2 Const General: comfortable Orientation/consciousness: patient oriented x3 Resp Effort & Inspection: normal respiratory effort and able to speak in complete sentences Neuro General: patient oriented x3 Assessment & Plan Assessment & Plan (1) Chronic respiratory failure: Code(s): J96.10 - Chronic respiratory failure, unspecified whether with hypoxia or hypercapnia Qualifiers: Respiratory failure complication: hypoxia and hypercapnia Qualified Code(s): J96.11 - Chronic respiratory failure with hypoxia; J96.12 - Chronic respiratory failure with hypercapnia (2) Asthma-COPD overlap syndrome: Code(s): J44.9 - Chronic obstructive pulmonary disease, unspecified (3) Asthma: Code(s): J45.909 - Unspecified asthma, uncomplicated Qualifiers: Asthma complication type: uncomplicated Asthma persistence: persistent Asthma severity: moderate Qualified Code(s): J45.40 - Moderate persistent asthma, uncomplicated (4) Allergies: Code(s): T78.40XA - Allergy, unspecified, initial encounter Qualifiers: Encounter type: sequela Qualified Code(s): T78.40XS - Allergy, unspecified, sequela (5) Dyspnea: Code(s): R06.00 - Dyspnea, unspecified Qualifiers: Dyspnea type: shortness of breath Qualified Code(s): R06.02 - Shortness of breath (6) PAYAL (obstructive sleep apnea): Code(s): G47.33 - Obstructive sleep apnea (adult) (pediatric) (7) Pulmonary nodules: Code(s): R91.8 - Other nonspecific abnormal finding of lung field Plan continue NIV, will send [facility] to assess and adjust Prednisone 10mg with slow taper off slowly will discontinue Tezspire for now. We will discuss later start Daliresp 250mcg diursesis as tolerated Pepcid QHS reflux diet cotinue Breztri KIMBERLY as needed Continue nebulized therapy Oxygen supplementation, okay to increase to 3 L/pulse to maintain a pulse ox above 90%. She is still waiting for her POC to get fixed by her DME, [employer]. Continue Singulair PPI daily Pepcid at night start Modafinil 100mg F/U 8-10 weeks Medications: New famotidine (Pepcid) 40 mg PO BEDTIME 30 days 30 tabs 6RF omeprazole 20 mg PO DAILY 30 days 30 caps 11RF roflumilast (Daliresp) 250 mcg PO DAILY 30 days 30 tabs 11RF J44.9 - Chronic obstructive pulmonary disease, unspecified Refilled modafinil 100 mg PO DAILY 30 days 30 tabs 3RF Telehealth Telehealth Location of provider rendering services: practice address Location of patient: address on file Patient Identification confirmed using: Name, : Yes Telehealth method: voice only Patient verbally consented to treatment: Yes Patient verbally consented to billing insurance company: Yes Patient informed of any privacy concerns related to visit: Yes Coding Level of Care Code Tele Est Pt Level 4 (83972) Diagnoses Chronic respiratory failure with hypoxia and hypercapnia J96.11; J96.12 Respiratory failure complication: hypoxia and hypercapnia Asthma-COPD overlap syndrome J44.9 Moderate persistent asthma without complication J45.40 Asthma complication type: uncomplicated Asthma persistence: persistent Asthma severity: moderate Allergy, sequela T78.40XS Encounter type: sequela Shortness of breath R06.02 Dyspnea type: shortness of breath PAYAL (obstructive sleep apnea) G47.33 Pulmonary nodules R91.8 Time Spent (min) 18
[2023-09-11 10:25] VITALS: BMI 50.2
== END 2023-09-11 11:08 | disposition home or self-care (01) ==
LOC: HO.HPS 10:24
PROVIDERS: PCP Internal Medicine; Visit Provider Hospitalist
DX: J96.11 Chronic respiratory failure with hypoxia (principal); J96.12 Chronic respiratory failure with hypercapnia; J44.9 Chronic obstructive pulmonary disease, unspecified; G47.33 Obstructive sleep apnea (adult) (pediatric); R91.8 Other nonspecific abnormal finding of lung field
CPT/HCPCS: 99442

== ENCOUNTER → 2023-09-11 10:24 | Outpatient (BNVA) | payer MEDICARE, MEDICAID, SELFPAY | PROVIDERS: PCP Internal Medicine; Visit Provider Hospitalist ==

== ENCOUNTER 2023-11-11 13:23 | Outpatient (AMB) | payer MEDICARE, MEDICAID, SELFPAY ==
[2023-11-11 13:24] VITALS: BMI 50.2
--- NOTE | 2023-11-11 13:24 | MHC.OFFVIS ---
Vital Signs 11/11/23 13:24 Height 4 ft 10 in Weight 240 lb BMI 50.2 Intake Visit Reasons: COPD Window Treatment Installer Required: No Allergies ampicillin Allergy (Severe, Uncoded 11/11/23 13:24) Rash and Hives naproxen Allergy (Severe, Uncoded 11/11/23 13:24) Rash and Hives slow bid Allergy (Severe, Uncoded 11/11/23 13:24) Rash and Hives tramadol Allergy (Severe, Uncoded 11/11/23 13:24) Rash and Hives HPI Comments Details: The patient is a 63-year-old woman known asthma COPD overlap syndrome, chronic hypercarbic respiratory failure on a trilogy at night and also has oxygen during the daytime. She continues use the noninvasive ventilator with very good effect. She does use it every night. She has been getting supplies through her [employer], [employer]. She continues use her respiratory medications of the recently she ran out and she started to develop increasing chest tightness and shortness of breath. Therefore I will make sure to send her all medications to the pharmacy. She complains of dyspnea on exertion [id number] severity. She does get relief from the oxygen. Otherwise patient is without any new complaints. Hopefully, will have her come in during the next visit so we can do a proper examination and also plan for additional laboratory, breathing andimaging studies. 04/25/2023 the patient is here for hospital follow-up visit. She was hospitalized a few times. The last time she required BiPAP but she had a hard time tolerating it. The patient has been struggling with her breathing still. Has a hard time breathing. She is not responding to her respiratory medications. She does not tolerate the Trelegy because the powder irritates her throat. Therefore will switch her to breast treat inhaler. She also has a nebulizer medicine. She has also been describing increasing tachycardia and difficult to tolerate the albuterol. Therefore, I will send her Xopenex HFA to see if this provides will better relief with last adverse effects. The patient also has been having difficulties with daytime drowsiness. She does have the noninvasive ventilator that she should be using at nighttime. But is still having some daytime drowsiness. Likely also could be post COVID syndrome since she had COVID back few months ago. I believe at this point modafinil may be a good option as a stimulant to keep her awake during the daytime improve her sleep-wake cycle. The patient also has been in the hospital and has been on high doses of steroids and appears to be volume overloaded. Will go ahead and diurese her for few days. She is now participating with VNA at home with physical therapy and occupational therapy. When she gets better will plan to do PFTs and also consider outpatient pulmonary rehabilitation. The patient is very debilitated. Very difficult for her to Mobic us the pain and shortness of breath. Her family has been putting over time to try to help her even going from the bed to a bedside commode. At this point the patient needs additional help with her activities daily living. 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 07/31/2023 the patient is here for hospital follow-up visit. She was hospitalized at [facility] with acute on chronic respiratory failure and COPD exacerbation. She was in a hospital former 7-8 days. While she was in a hospital she was diagnosed with diabetes because of the prednisone use. She continues to be on 10 mg of prednisone. She also started Tezspire. She is received now the 3rd dose. She has not seen any significant improvement from the biologic therapy just yet. I did recommend she can continue for least 6 months to see if this is worthwhile medication for her. In the meantime I am going to send a 5 mg of prednisone in order for to be able to cut down to 7.5 mg daily And hopefully down to 5 mg daily. After that will probably have to get her to 1 mg tablets and decrease her further very slowly since she has been on the prednisone for such a long time. Need to monitor closely for any adrenal insufficiency. She continues use her respiratory therapy. She is feeling again some chest congestion. And also complains of hoarseness. I did visualize significant purulent secretions primarily from the posterior pharynx likely component of sinusitis. Therefore will going to start her on some doxycycline. Also provide her with sputum cup in order to get a culture. 09/11/2023 the patient has a telehealth visit today. She was recently hospitalized at [facility] and discharged. Therefore she is waiting for VNA services. She is going to be working with PT and OT and hopefully respiratory. While in the hospital she did require BiPAP. She has not been able to use her noninvasive ventilator. She can not tolerate the pressures. I did call her DME company, [employer] and I did send the script to decrease her pressure is hopefully she can not tolerated better. In addition to that her nebulizer broke after little more than a year of use. We did call the [employer] to see if they can swap out for functional nebulizer this time. She continues to be on 10 mg of prednisone. At this point she will require some degree of maintenance therapy. Hopefully we can get her down to 10 mg every other day. She continues on her other respiratory inhalers with good effect. The patient does have some significant daytime drowsiness. She did have a prescription for modafinil in the past but not sure if she did not take it. Therefore a recent pharmacy and she will try. I do believe that improving her sleep-wake cycle will help her with her respiratory drive as well. The patient also can try Daliresp specially if she tolerates modafinil in order to provide her with additional medications for chronic bronchitis and decrease her prednisone use. Will plan to follow-up in 2 months. 11/11/2023 the patient has a telehealth visit today. She was recently evaluated at the [facility] ER. She was having significant shortness of breath and also was very edematous per the family. She was evaluated and released. The patient did have laboratory data and she was told everything was okay. It was done at [facility] so I do not have the results. The family did go into the portal and they were able to visualize the chest x-ray which demonstrated pulmonary vascular congestion. Likely the picture consists of congestive heart failure. The patient also may have a component of an asymmetrical opacity. Therefore can not rule out infection. The patient is also confused. She is still in now as far as her mentation. Although she did receive medications in the ER for anxiety. I do not have those results at this time or reports. Therefore, the patient will go ahead and receive additional diuretic. She does take 40 mg daily. She will go ahead and double it to 40 mg twice a day for 3 days. Seems like her electrolytes and kidney function are within normal limits per the portal results that the family read to me. After she completes her additional diuresis she is going to go to the hospital here at [place] and have blood work done including a venous gas and brain atretic peptide. If the patient develops worsening shortness of breath or worsening altered mental status she would need to go back to the ER her. She has not been using the noninvasive ventilator. Explained to the family that this will be helpful with work of breathing. Therefore, I did call the [employer] company in order for them to visit her and adjusted. She does have oxygen at home and she should be placed on the oxygen currently on 4 L and she is maintaining a pulse ox of 91-93% this is per the patient's family reading. [facility] Medical History (Updated 11/11/23 @ 22:04 by Sarkis Reynoso MD) Altered mental state Pulmonary nodules PAYAL (obstructive sleep apnea) Allergies Dyspnea Pleuritic chest pain COVID-19 Hypothyroidism Hypertension Asthma Chronic respiratory failure Asthma-COPD overlap syndrome Social History Household Members: Significant Other Household Members Other:: 1 Housing: House Do you presently have visiting nurse or other home services: No Patient Tobacco Use Status: Never used Tobacco Second Hand Smoke Exposure: No Substance Use Type: Marijuana Advance Directives Date on File: 01/25/22 service: No Current occupational status: unemployed and disabled Review of Systems Const Unobtainable due to mental status Physical Exam Vital Signs: BMI result Body Mass Index 50.2 Const General: lethargic Orientation/consciousness: lethargic Resp Effort & Inspection: normal respiratory effort Telehealth Telehealth Telehealth Platform: Telephone Location of provider rendering services: practice address Location of patient: address on file Patient Identification confirmed using: Name, : Yes Telehealth method: voice only Patient verbally consented to treatment: Yes Patient verbally consented to billing insurance company: Yes Patient informed of any privacy concerns related to visit: Yes Assessment & Plan Assessment & Plan (1) CHF (congestive heart failure): Code(s): I50.9 - Heart failure, unspecified Category: Medical Qualifiers: Heart failure type: unspecified Heart failure chronicity: acute on chronic Qualified Code(s): I50.9 - Heart failure, unspecified (2) Chronic respiratory failure: Code(s): J96.10 - Chronic respiratory failure, unspecified whether with hypoxia or hypercapnia Category: Medical Qualifiers: Respiratory failure complication: hypoxia and hypercapnia Qualified Code(s): J96.11 - Chronic respiratory failure with hypoxia; J96.12 - Chronic respiratory failure with hypercapnia (3) Asthma-COPD overlap syndrome: Code(s): J44.9 - Chronic obstructive pulmonary disease, unspecified Category: Medical (4) Asthma: Code(s): J45.909 - Unspecified asthma, uncomplicated Category: Medical Qualifiers: Asthma complication type: uncomplicated Asthma persistence: persistent Asthma severity: moderate Qualified Code(s): J45.40 - Moderate persistent asthma, uncomplicated (5) Allergies: Code(s): T78.40XA - Allergy, unspecified, initial encounter Category: Medical Qualifiers: Encounter type: sequela Qualified Code(s): T78.40XS - Allergy, unspecified, sequela (6) Dyspnea: Code(s): R06.00 - Dyspnea, unspecified Category: Medical Qualifiers: Dyspnea type: shortness of breath Qualified Code(s): R06.02 - Shortness of breath (7) PAYAL (obstructive sleep apnea): Code(s): G47.33 - Obstructive sleep apnea (adult) (pediatric) Category: Medical (8) Pulmonary nodules: Code(s): R91.8 - Other nonspecific abnormal finding of lung field Category: Medical Plan continue NIV, will send [facility] to assess and adjust Prednisone 10mg with slow taper off slowly Daliresp 250mcg increase Lasix 40mg daily->BID x 3 days, then daily start Doxy x 10 days bloodwork/gas by the end of the week Pepcid QHS reflux diet cotinue Breztri KIMBERLY as needed Continue nebulized therapy Oxygen supplementation, 3-4 L to keep pox>90% Continue Singulair PPI daily Pepcid at night F/U 3-4 weeks Orders: Orders Troponin-I High Sensitivity Today I50.9 - Heart failure, unspecified, R06.02 - Shortness of breath, R41.82 - Altered mental status, unspecified Basic Metabolic Panel Today I50.9 - Heart failure, unspecified, R06.02 - Shortness of breath, R41.82 - Altered mental status, unspecified Ammonia Today I50.9 - Heart failure, unspecified, R06.02 - Shortness of breath, R41.82 - Altered mental status, unspecified Venous Blood Gas Today I50.9 - Heart failure, unspecified, R06.02 - Shortness of breath, R41.82 - Altered mental status, unspecified Complete Blood Count Auto Diff Today I50.9 - Heart failure, unspecified, R06.02 - Shortness of breath, R41.82 - Altered mental status, unspecified B Type Natriuretic Peptide Today I50.9 - Heart failure, unspecified, R06.02 - Shortness of breath, R41.82 - Altered mental status, unspecified Liver Panel Today I50.9 - Heart failure, unspecified, R06.02 - Shortness of breath, R41.82 - Altered mental status, unspecified Medications: New doxycycline hyclate 100 mg PO BID 20 caps 0RF 10 days Coding Level of Care Code Tele New Pt Level 4 (49710) Diagnoses Acute on chronic congestive heart failure, unspecified heart failure type I50.9 Heart failure type: unspecified Heart failure chronicity: acute on chronic Chronic respiratory failure with hypoxia and hypercapnia J96.11; J96.12 Respiratory failure complication: hypoxia and hypercapnia Asthma-COPD overlap syndrome J44.9 Moderate persistent asthma without complication J45.40 Asthma complication type: uncomplicated Asthma persistence: persistent Asthma severity: moderate Allergy, sequela T78.40XS Encounter type: sequela Shortness of breath R06.02 Dyspnea type: shortness of breath PAYAL (obstructive sleep apnea) G47.33 Pulmonary nodules R91.8 Time Spent (min) 15
== END 2023-11-11 14:10 | disposition home or self-care (01) ==
LOC: HO.HPS 13:23
PROVIDERS: PCP Internal Medicine; Visit Provider Hospitalist
DX: J44.9 Chronic obstructive pulmonary disease, unspecified (principal); J96.11 Chronic respiratory failure with hypoxia; J96.12 Chronic respiratory failure with hypercapnia; G47.33 Obstructive sleep apnea (adult) (pediatric); I50.9 Heart failure, unspecified; T78.40XS Allergy, unspecified, sequela; R91.8 Other nonspecific abnormal finding of lung field
CPT/HCPCS: 99442

== ENCOUNTER → 2023-11-11 13:23 | Outpatient (BNVA) | payer MEDICARE, MEDICAID, SELFPAY | PROVIDERS: PCP Internal Medicine; Visit Provider Hospitalist ==